=== PATIENT | female | born 1955 | race Caucasian/White ===

== ENCOUNTER 2018-09-08 15:47 | Observation (INO) | payer SELFPAY ==
[2018-09-08 16:48] LABS: Absolute Lymphocytes (CBC) 3.1 K/uL (0.7-4.9); Basophils % 0.2 % (0-1.3); Eosinophils % 4.7 % (0-4.4); Hematocrit 40.4 % (36.0-45.0); MPV 7.8 fL (7.6-11.3); Monocytes % 4.8 % (3.3-12.3); RBC Red Blood Cell Count 4.37 M/uL (3.86-4.86)
[2018-09-08 16:50] LABS: Protime INR 1.05
[2018-09-08 17:06] LABS: ALT/SGPT 23 U/L (12-78); AST/SGOT 17 U/L (15-37); Albumin 3.6 g/dL (3.4-5.0); Alkaline Phosphatase 91 U/L (45-117); BUN Blood Urea Nitrogen 12 mg/dL (7-18); Bicarbonate 32 mmol/L (21-32); Bilirubin Direct 0.1 mg/dL (0-0.2); Bilirubin Total 0.4 mg/dL (0.2-1.0); Glucose Level 98 mg/dL (74-106); Magnesium 2.1 mg/dL (1.8-2.4); NT PRO-BNP 145 pg/mL (<125); Potassium 3.6 mmol/L (3.5-5.1); Protein, Total 7.7 g/dL (6.4-8.2); Sodium Level 137 mmol/L (136-145); Troponin (Emerg Dept Use Only) < 0.02 ng/mL (0.0-0.045)
--- NOTE | 2018-09-08 17:43 | RAD REPORT ---
EXAM DESCRIPTION: Dequan Single View09/08/2018 4:48 pm CLINICAL HISTORY: Chest pain COMPARISON: 2014 FINDINGS: The lungs appear clear of acute infiltrate. The heart is normal size IMPRESSION: No acute abnormalities displayed
[2018-09-08] MEDS ORDERED: NA CHLORIDE 0.9% 1,000 ML ONE (17:56)
[2018-09-08] MEDS ORDERED: ALBUTEROL 2.5 MG/3 ML NEB SOL ONE ×2 (17:56→19:05)
[2018-09-08] MEDS ORDERED: ASPIRIN 81 MG CHEWABLE TABLET ONE (18:42)
[2018-09-08] MEDS ORDERED: ENOXAPARIN 80 MG/0.8 ML SQ ONE (18:42)
[2018-09-08] MEDS ORDERED: NICOTINE 21 MG/PAT TD ONE (18:42)
[2018-09-08 18:48] LABS: Thyroid Stimulating Hormone 9.06 uIU/mL (0.360-3.740)
--- NOTE | 2018-09-08 19:02 | EDPHYS ---
Physician Documentation [facility] Name: Helene Pastor Age: 63 yrs Sex: Female : 1955 Arrival Date: 09/08/2018 Time: 15:50 Bed 7 Private MD: ED Physician Rafael Glez HPI: 09/08 18:10 This 63 yrs old Female presents to ER via Ambulatory with complaints of Chest snw Pain. 18:10 The patient or guardian reports chest pain that is located primarily in the anterior snw chest wall, left. Onset: gradually, 2 week(s) ago, and became persistent. The pain radiates to the left shoulder. Associated signs and symptoms: Pertinent positives: shortness of breath. The chest pain is described as a heaviness. Duration: The patient or guardian reports multiple episodes. Severity of pain: At its worst the pain was moderate. The patient has experienced similar episodes in the past. The patient has not recently seen a physician. Historical: - Allergies: 15:53 No Known Allergies; hj - PMHx: 15:53 Hypertension; Hyperlipidemia; Hypothyroidism; hj - PSHx: 15:53 ; Tubal ligation; cardiac stent x1; hj - Immunization history:: Adult Immunizations. - Social history:: Smoking status: Patient uses tobacco products, smokes one pack cigarettes per day. - Ebola Screening: : Patient denies travel to an Ebola-affected area in the 21 days before illness onset. ROS: 17:15 Constitutional: Negative for fever, chills, and weight loss, Eyes: Negative for injury, snw pain, redness, and discharge, ENT: Negative for injury, pain, and discharge, Neck: Negative for injury, pain, and swelling, Abdomen/GI: Negative for abdominal pain, nausea, vomiting, diarrhea, and constipation, Back: Negative for injury and pain, : Negative for injury, bleeding, discharge, and swelling, MS/Extremity: Negative for injury and deformity, Skin: Negative for injury, rash, and discoloration, Neuro: Negative for headache, weakness, numbness, tingling, and seizure. 17:15 Cardiovascular: Positive for chest pain, orthopnea. 17:15 Respiratory: Positive for cough, orthopnea, shortness of breath. Exam: 17:15 Constitutional: This is a well developed, well nourished patient who is awake, alert, snw and in no acute distress. Head/Face: Normocephalic, atraumatic. Eyes: Pupils equal round and reactive to light, extra-ocular motions intact. Lids and lashes normal. Conjunctiva and sclera are non-icteric and not injected. Cornea within normal limits. Periorbital areas with no swelling, redness, or edema. ENT: Nares patent. No nasal discharge, no septal abnormalities noted. Tympanic membranes are normal and external auditory canals are clear. Oropharynx with no redness, swelling, or masses, exudates, or evidence of obstruction, uvula midline. Mucous membranes moist. Neck: Trachea midline, no thyromegaly or masses palpated, and no cervical lymphadenopathy. Supple, full range of motion without nuchal rigidity, or vertebral point tenderness. No Meningismus. Chest/axilla: Normal chest wall appearance and motion. Nontender with no deformity. No lesions are appreciated. Cardiovascular: Regular rate and rhythm with a normal S1 and S2. No gallops, murmurs, or rubs. Normal PMI, no JVD. No pulse deficits. Abdomen/GI: Soft, non-tender, with normal bowel sounds. No distension or tympany. No guarding or rebound. No evidence of tenderness throughout. Back: No spinal tenderness. No costovertebral tenderness. Full range of motion. Skin: Warm, dry with normal turgor. Normal color with no rashes, no lesions, and no evidence of cellulitis. MS/ Extremity: Pulses equal, no cyanosis. Neurovascular intact. Full, normal range of motion. Neuro: Awake and alert, GCS 15, oriented to person, place, time, and situation. Cranial nerves II-XII grossly intact. Motor strength 5/5 in all extremities. Sensory grossly intact. Cerebellar exam normal. Normal gait. Psych: Awake, alert, with orientation to person, place and time. Behavior, mood, and affect are within normal limits. 17:15 Respiratory: mild respiratory distress is noted, Respirations: accessory muscle usage, shallow respirations, tachypnea, Breath sounds: decreased breath sounds, + upper airway congestion. incessant wet sounding cough. Vital Signs: 15:53 BP 105 / 55; Pulse 78; Resp 18; Temp 98.3(TE); Pulse Ox 95% on R/A; Weight 69.85 kg; hj Height 5 ft. 3 in. (160.02 cm); Pain 7/10; 16:37 BP 97 / 51; Pulse 67; Resp 14; Pulse Ox 87% on R/A; sv 17:00 BP 98 / 58; Pulse 70; Resp 17; Pulse Ox 94% on 2 lpm NC; sv 18:30 BP 101 / 55; Pulse 68; Resp 22; Pulse Ox 95% on Nebulizer Mask; sv 20:09 BP 127 / 64; Pulse 65; Resp 20; Temp 98.3; Pulse Ox 95% on R/A; Pain 0/10; ak1 15:53 Body Mass Index 27.28 (69.85 kg, 160.02 cm) hj 16:37 Pt placed on O2 \T\ 2L per NC, O2 sat up to 96%. sv MDM: 16:47 Patient medically screened. snw 18:58 ECG:. The patient was given aspirin in the Emergency Department. Data reviewed: vital snw signs, nurses notes, lab test result(s), EKG, radiologic studies. Counseling: I had a detailed discussion with the patient and/or guardian regarding: the historical points, exam findings, and any diagnostic results supporting the discharge/admit diagnosis, lab results, radiology results, the need for further work-up and treatment in the hospital, smoking cessation. Physician consultation: Juliet De Jesus MD was called at 18:59, was contacted at 18:59, regarding admission, to the telemetry unit. 09/08 16:19 Order name: Basic Metabolic Panel; Complete Time: 17:13 09/08 16:19 Order name: CBC with Diff; Complete Time: 16:55 2 09/08 16:19 Order name: LFT's; Complete Time: 17:13 09/08 16:19 Order name: Magnesium; Complete Time: 17:13 2 09/08 16:19 Order name: NT PRO-BNP; Complete Time: 17:13 09/08 16:19 Order name: PT-INR; Complete Time: 16:55 09/08 16:19 Order name: Troponin (emerg Dept Use Only); Complete Time: 17:13 2 09/08 16:19 Order name: XRAY Chest (1 view); Complete Time: 18:17 2 07/10 17:15 Order name: TSH; Complete Time: 19:31 snw 09/08 18:12 Order name: CT Chest For PE Angio; Complete Time: 19:31 snw 09/08 18:31 Order name: Urine Dipstick--Ancillary (enter results); Complete Time: 09:16 ms 09/08 18:49 Order name: T4 Free; Complete Time: 19:31 EDMS 09/08 20:02 Order name: Procalcitonin; Complete Time: 09:16 EDMS 09/08 15:51 Order name: EKG; Complete Time: 15:52 ss 09/08 15:51 Order name: EKG - Nurse/Tech; Complete Time: 16:36 ss 09/08 16:19 Order name: EKG; Complete Time: 16:20 tw2 09/08 16:19 Order name: Cardiac monitoring; Complete Time: 16:19 tw2 09/08 16:19 Order name: IV Saline Lock; Complete Time: 16:36 tw2 09/08 16:19 Order name: Labs collected and sent; Complete Time: 16:36 tw2 09/08 16:19 Order name: O2 Per Protocol; Complete Time: 16:20 tw2 09/08 16:19 Order name: O2 Sat Monitoring; Complete Time: 16:20 tw2 EC:58 Rate is 79 beats/min. Rhythm is regular. QRS [place] is Normal. Clinical impression: NSR snw w/ Non-specific ST/T Changes. Administered Medications: 18:30 Drug: NS 0.9% 1000 ml Route: IV; Rate: 75 ml/hr; Site: right antecubital; tw2 21:17 Follow up: IV Status: Infusion continued upon admission ak1 18:30 Drug: Lovenox 70 mg Route: Sub-Q; Site: right lower abdomen; tw2 18:46 Follow up: Response: No adverse reaction sv 18:33 Drug: Aspirin Chewable Tablet 324 mg Route: PO; tw2 18:45 Follow up: Response: No adverse reaction sv 18:33 Drug: Nicoderm CQ 21 mg/24 hr 1 patches {Note: on back of Right arm.} Route: tw2 Transdermal; Site: affected area; 18:37 Drug: Albuterol 2.5 mg Route: Inhalation; tw2 Disposition: 09/09 07:35 Co-signature as Attending Physician, Rafael Glez MD I agree with the assessment and kdr plan of care. Disposition: 09/08/18 19:01 Hospitalization ordered by Juliet De Jesus for Observation. Preliminary diagnosis are Chest pain, unspecified, Dyspnea. - Bed requested for Telemetry/MedSurg (observation). - Status is Observation. ak1 - Condition is Stable. - Problem is new. - Symptoms have worsened. UTI on Admission? No Signatures: Dispatcher [employer] EDMS Rafael Glez MD MD [facility] Donna Sanchez, HOG RAISER-C HOG RAISER-Csnw Jazmin Cuenca, RN RN ss Lizbeth Alcaraz, RN RN ak1 Anthony Stuart, RN RN Comfort Grajeda, RN RN Betsy Nichols, RN RN 2 Wendy Mckinley RN Corrections: (The following items were deleted from the chart) 09/08 20:07 19:01 Hospitalization Ordered by Juliet De Jesus MD for Observation. Preliminary cg diagnosis is Chest pain, unspecified; Dyspnea. Bed requested for Telemetry/MedSurg (observation). Status is Observation. Condition is Stable. Problem is new. Symptoms have worsened. UTI on Admission? No. snw 21:16 20:07 09/08/2018 19:01 Hospitalization Ordered by Juliet De Jesus MD for Observation. ak1 Preliminary diagnosis is Chest pain, unspecified; Dyspnea. Bed requested for Telemetry/MedSurg (observation). Status is Observation. Condition is Stable. Problem is new. Symptoms have worsened. UTI on Admission? No. cg
--- NOTE | 2018-09-08 19:02 | ER ---
Nurse's Notes [facility] Name: Helene Pastor Age: 63 yrs Sex: Female : 1955 Arrival Date: 09/08/2018 Time: 15:50 Bed 7 Private MD: Diagnosis: Chest pain, unspecified;Dyspnea Presentation: 09/08 15:50 Presenting complaint: Patient states: franca been having chest pain and couldn't breathe hj well for 2 weeks now; denies fever; reports cough; reports taking dayquil and nyquil; reports L arm pain and shoulder area;. Transition of care: patient was not received from another setting of care. Onset of symptoms was September 08, 2018. Risk Assessment: Do you want to hurt yourself or someone else? Patient reports no desire to harm self or others. Initial Sepsis Screen: Does the patient meet any 2 criteria? No. Patient's initial sepsis screen is negative. Does the patient have a suspected source of infection? No. Patient's initial sepsis screen is negative. Care prior to arrival: None. 15:50 Method Of Arrival: Ambulatory 15:50 Acuity: PEPE 3 hj Historical: - Allergies: 15:53 No Known Allergies; hj - PMHx: 15:53 Hypertension; Hyperlipidemia; Hypothyroidism; hj - PSHx: 15:53 ; Tubal ligation; cardiac stent x1; hj - Immunization history:: Adult Immunizations. - Social history:: Smoking status: Patient uses tobacco products, smokes one pack cigarettes per day. - Ebola Screening: : Patient denies travel to an Ebola-affected area in the 21 days before illness onset. Screenin:27 Abuse screen: Denies threats or abuse. Nutritional screening: No deficits noted. tw2 Tuberculosis screening: No symptoms or risk factors identified. Fall Risk None identified. Assessment: 16:25 General: Appears in no apparent distress. Behavior is calm, cooperative, appropriate tw2 for age. Pain: Complains of pain in chest Pain does not radiate. Pain began 2 weeks ago. 16:25 Neuro: Level of Consciousness is awake, alert, obeys commands, Oriented to person, tw2 place, time, situation. Cardiovascular: Reports chest pain, Heart tones S1 S2 Patient's skin is warm and dry. Respiratory: Airway is patent Respiratory effort is even, unlabored, Respiratory pattern is regular, symmetrical, Breath sounds with wheezes bilaterally. expiratory. GI: No signs and/or symptoms were reported involving the gastrointestinal system. Abdomen is flat, Bowel sounds present X 4 quads. : No signs and/or symptoms were reported regarding the genitourinary system. EENT: No signs and/or symptoms were reported regarding the EENT system. Derm: Skin is intact, is healthy with good turgor. 17:45 Reassessment: Patient appears in no apparent distress at this time. No changes from sv previously documented assessment. Patient and/or family updated on plan of care and expected duration. Pain level reassessed. Patient is alert, oriented x 3, equal unlabored respirations, skin warm/dry/pink. 18:30 Reassessment: Patient appears in no apparent distress at this time. No changes from sv previously documented assessment. Patient and/or family updated on plan of care and expected duration. Pain level reassessed. Patient is alert, oriented x 3, equal unlabored respirations, skin warm/dry/pink. Vital Signs: 15:53 BP 105 / 55; Pulse 78; Resp 18; Temp 98.3(TE); Pulse Ox 95% on R/A; Weight 69.85 kg; hj Height 5 ft. 3 in. (160.02 cm); Pain 7/10; 16:37 BP 97 / 51; Pulse 67; Resp 14; Pulse Ox 87% on R/A; sv 17:00 BP 98 / 58; Pulse 70; Resp 17; Pulse Ox 94% on 2 lpm NC; sv 18:30 BP 101 / 55; Pulse 68; Resp 22; Pulse Ox 95% on Nebulizer Mask; sv 20:09 BP 127 / 64; Pulse 65; Resp 20; Temp 98.3; Pulse Ox 95% on R/A; Pain 0/10; ak1 15:53 Body Mass Index 27.28 (69.85 kg, 160.02 cm) hj 16:37 Pt placed on O2 \T\ 2L per NC, O2 sat up to 96%. ED Course: 15:50 Patient arrived in ED. mr 15:52 Triage completed. hj 15:53 Arm band placed on right wrist. hj 16:15 Placed in gown. Bed in low position. Call light in reach. equipment monitor phototypesetting on. Pulse ox tw2 on. NIBP on. 16:21 Wendy Mckinley RN is Primary Nurse. sv 16:25 Initial lab(s) drawn, by me, sent to lab. Inserted saline lock: 20 gauge in right sv antecubital area, using aseptic technique. Blood collected. Flushed right antecubital with 5 ml normal saline. 16:27 Patient maintains SpO2 saturation greater than 95% on room air. tw2 16:35 Donna Sanchez FNP-C [facility]. snw 16:35 Rafael Glez MD is Attending Physician. snw 16:37 Awaiting ED provider evaluation. sv 16:38 Awaiting lab results. sv 16:55 XRAY Chest (1 view) In Process Unspecified. EDMS 18:30 Urine collected: clean catch specimen, clear. dh3 18:42 CT Chest For PE Angio In Process Unspecified. EDMS 19:00 Juliet De Jesus MD is Hospitalizing Provider. snw 19:00 Report given to Lizbeth MESA. sv 19:59 No provider procedures requiring assistance completed. Patient admitted, IV remains in ak1 place. 20:58 Primary Nurse role handed off by Wendy Mckinley RN sv 21:16 Lizbeth Alcaraz, MOSHE is Primary Nurse. ak1 Administered Medications: 18:30 Drug: NS 0.9% 1000 ml Route: IV; Rate: 75 ml/hr; Site: right antecubital; tw2 21:17 Follow up: IV Status: Infusion continued upon admission ak1 18:30 Drug: Lovenox 70 mg Route: Sub-Q; Site: right lower abdomen; tw2 18:46 Follow up: Response: No adverse reaction sv 18:33 Drug: Aspirin Chewable Tablet 324 mg Route: PO; tw2 18:45 Follow up: Response: No adverse reaction sv 18:33 Drug: Nicoderm CQ 21 mg/24 hr 1 patches {Note: on back of Right arm.} Route: tw2 Transdermal; Site: affected area; 18:37 Drug: Albuterol 2.5 mg Route: Inhalation; tw2 Outcome: 19:01 Decision to Hospitalize by Provider. snw 20:09 Admitted to Tele accompanied by tech, via wheelchair, with oxygen, with chart. ak1 20:09 Condition: stable 20:09 Instructed on the need for admit. 21:16 Patient left the ED. ak1 Signatures: Dispatcher [employer] Wendy Ordaz, RN RN Donna Sanchez, CASH APPLICATIONS CLERK-C CASH APPLICATIONS CLERK-Csnw Sondra MossLizbeth, RN RN ak1 Anthony Stuart, RN MOSHE hj Betsy Nichols, MOSHE MESA tw2 Roxane Verma 3 Corrections: (The following items were deleted from the chart) 15:56 15:53 Pulse 78bpm; Resp 18bpm; Pulse Ox 95% RA; Temp 98.3F Temporal; 69.85 kg; Height 5 hj ft. 3 in.; BMI: 27.2; Pain 7/10; hj 16:26 16:25 Pain: Complains of pain in chest Pain does not radiate. Pain began tw2 tw2
--- NOTE | 2018-09-08 19:09 | RAD REPORT ---
EXAM DESCRIPTION: CT - Chest For Pe Angio - 09/08/2018 6:42 pm CLINICAL HISTORY: Chest pain COMPARISON: None. TECHNIQUE: Dynamically enhanced axial 3 mm thick images of the chest were obtained during administra tion of <100> mL Isovue 370 IV contrast. Coronal and oblique reconstruction images were generated and reviewed. Exam utilizes a protocol for optimal evaluation of pulmonary arterial tree. Maximum intensity projections 3D imaging was utilized All CT scans are performed using dose optimization technique as appropriate and may include automated exposure control or mA/KV adjustment according to patient size. FINDINGS: A pulmonary embolus is not seen. A thoracic aortic aneurysm is not noted. A pleural effusion is not seen. A pericardial effusion is not seen. A lung consolidation is not present. IMPRESSION: Negative for a pulmonary embolism.
[2018-09-08 20:23] LABS: Urine Blood TRACE (NEG); Urine Glucose NEGATIVE (NEG); Urine Protein NEGATIVE (NEG)
--- NOTE | 2018-09-08 20:30 | P.HP ---
Certification for Inpatient Patient admitted to: Observation With expected LOS: <2 Midnights Practitioner: I am a practitioner with admitting privileges, knowledge of patient current condition, hospital course, and medical plan of care. Services: Services provided to patient in accordance with Admission requirements found in Title 42 Section 412.3 of the Code of Federal Regulations Patient History Date of Service: 09/08/18 Reason for admission: chest pain History of Present Illness: Ms Pastor is a 63 years old woman with history of HTN, hypothyroidism, CAD S/P stent palcement on Cx artery on 2014, tobacco abuse, currently smoking more than 1 ppd, start with productive cough and progressive SOB. She also has been complaining of chest pain, substernal, pressure like, rediated to left arm, shoulder and jaw, improving with nitro SL. She denied fever or chills. She states that initially she had greenish secretions with her cough, and now is clear, however, still has significant cough. CTA chest, negative for PE, no obvious infiltrate. Lab work shows 11.4K WBC, normal trop I, and elevated TSH 9.06. Her BP was on the lower side 97/51, HR 67, O2 sat 95% on RA, afebrile. Allergies No Known Drug Allergies Allergy (Verified 12/07/14 11:40) Unknown Home medications list reviewed: Yes Home Medications: Carvedilol [Coreg*] 25 mg PO BID 05/20/14 Levothyroxine [Synthroid*] 88 mcg PO [id number] 05/20/14 Aspirin Enteric Coated [Ecotrin*] 325 mg PO DAILY #100 tab 05/23/14 Atorvastatin Calcium [Lipitor*] 40 mg PO BEDTIME #30 tab 05/23/14 Clopidogrel Bisulfate [Plavix*] 75 mg PO DAILY #30 tablet 05/23/14 Lisinopril [Zestril] 20 mg PO DAILY #30 05/23/14 Nitroglycerin [Nitrostat*] 0.4 mg SL UD PRN #1 tab 05/23/14 Pantoprazole [Protonix Tab*] 40 mg PO DAILYAC #30 tab 05/23/14 - Past Medical/Surgical History Diabetic: No -: HTN -: Hypothyroidism -: chest pain -: -: tubal ligation - Family History Father -: Diabetes Mother -: Lung disease, GI disease Sister -: Heart disease - Social History Smoking Status: Current every day smoker Counseled patient to stop smoking for: less than 10 minutes Smoking therapy provided: Yes Patient receptive to therapy: Yes Alcohol use: Yes CD- Drugs: No Caffeine use: Yes Place of Residence: Home Review of Systems 10-point ROS is otherwise unremarkable Physical Examination - Physical Exam General: Alert, In no apparent distress HEENT: Atraumatic, PERRLA, Mucous membr. moist/pink, EOMI, Sclerae nonicteric Neck: Supple, 2+ carotid pulse no bruit, No LAD, Without JVD or thyroid abnormality Respiratory: Clear to auscultation bilaterally, Diminished Cardiovascular: Regular rate/rhythm, Normal S1 S2 Gastrointestinal: Normal bowel sounds, No tenderness Musculoskeletal: No tenderness Integumentary: No rashes Neurological: Normal gait, Normal speech, Normal strength at 5/5 x4 extr, Normal tone, Normal affect Lymphatics: No axilla or inguinal lymphadenopathy - Studies Laboratory Data (last 24 hrs) 09/08/18 16:25: PT 12.4, INR 1.05 09/08/18 16:25: WBC 11.4 H, Hgb 13.4, Hct 40.4, Plt Count 366 09/08/18 16:25: Sodium 137, Potassium 3.6, BUN 12, Creatinine 1.28, Glucose 98, Magnesium 2.1, Total Bilirubin 0.4, AST 17, ALT 23, Alkaline Phosphatase 91 Assessment and Plan - Problems (Diagnosis) (1) Acute bronchitis Current Visit: Yes Status: Acute Qualifiers: Bronchitis organism: unspecified organism Qualified Code(s): J20.9 - Acute bronchitis, unspecified (2) CAD (coronary artery disease) Onset Date: 12/08/14 Current Visit: No Status: Acute Qualifiers: Coronary Disease-Associated Artery/Lesion type: [place] artery [place] vs. transplanted heart: [place] heart Associated angina: with unspecified angina Qualified Code(s): I25.119 - Atherosclerotic heart disease of [place] coronary artery with unspecified angina pectoris (3) Chest pain Onset Date: 12/08/14 Current Visit: No Status: Acute Qualifiers: Chest pain type: precordial pain Qualified Code(s): R07.2 - Precordial pain (4) Tobacco abuse Current Visit: No Status: Acute (5) Hypertension Current Visit: No Status: Chronic Qualifiers: Hypertension type: essential hypertension Qualified Code(s): I10 - Essential (primary) hypertension (6) Hypothyroidism Current Visit: No Status: Chronic Qualifiers: Hypothyroidism type: unspecified Qualified Code(s): E03.9 - Hypothyroidism , unspecified - Plan Will admit the patient due to chest pain, she has history of CAD with stent placed on 2014, EKG shows no acute changes, normal Trop I. Will order serial cardiac enzymes and EKG, ECHO, consult cardiology team. I think she has had a viral URI which is resolving at this time. Continue breathing treatments and O2 support. - Advance Directives Does patient have a Living Will: No Does patient have a Durable POA for Healthcare: No - Code Status/Comfort Care Code Status Assessed: Yes Code Status: Full Code
[2018-09-08] MEDS ORDERED: NITROGLYCERIN 0.4 MG/TAB SL PRN (20:57)
[2018-09-08] MEDS ORDERED: ONDANSETRON 4 MG/2 ML VIAL IV PRN (20:57)
[2018-09-08] MEDS ORDERED: ATORVASTATIN 20 MG TAB PO SCH (21:00)
[2018-09-08 21:48] VITALS: BMI 27.4
[2018-09-08] MEDS: NA CHLORIDE 0.9% 1,000 ML IV SCH (22:11)
[2018-09-09] MEDS: LEVOTHYROXINE SOD 0.088 MG TAB PO SCH (05:32)
[2018-09-09] MEDS ORDERED: KETOROLAC 30 MG/ML INJ IV PRN (05:52)
[2018-09-09 05:56] LABS: Absolute Lymphocytes (CBC) 2.8 K/uL (0.7-4.9); Basophils % 0.7 % (0-1.3); Eosinophils % 5.5 % (0-4.4); Hematocrit 37.2 % (36.0-45.0); Lymphocytes % 28.1 % (15.3-44.8); MPV 7.7 fL (7.6-11.3); Monocytes % 5.5 % (3.3-12.3); RBC Red Blood Cell Count 4.06 M/uL (3.86-4.86)
[2018-09-09 06:13] LABS: BUN Blood Urea Nitrogen 12 mg/dL (7-18); Bicarbonate 33 mmol/L (21-32); Glucose Level 106 mg/dL (74-106); HDL Cholesterol 26 mg/dL (40-60); LDL Cholesterol, Calculated 66 (<130); Potassium 3.5 mmol/L (3.5-5.1); Sodium Level 141 mmol/L (136-145); Troponin I < 0.02 ng/mL (0.0-0.045)
--- NOTE | 2018-09-09 07:37 | EKG ---
Test Date: 2018-09-08 Test Time: 16:00:29 Flap Curer: ARIAS MEASUREMENT RESULTS: Intervals: Rate: 79 HI: 164 QRSD: 72 QT: 388 QTc: 444 [place]: P: 71 HI: 164 QRS: 79 T: 82 INTERPRETIVE STATEMENTS: Normal sinus rhythm Nonspecific ST abnormality Abnormal ECG Compared to ECG 12/08/2014 05:29:25 ST (T wave) deviation now present Electronically Signed On 09-09-18 07:35:50 CDT by Luther Kang
[2018-09-09] MEDS ORDERED: KCL 20 MEQ/100 mL IVPB 20 MEQ/100 ML BAG IV SCH (08:00)
[2018-09-09] MEDS ORDERED: REGADENOSON 0.4 MG/5 ML SYR IV ONE (08:50)
[2018-09-09] MEDS: ASPIRIN EC 325 MG TABLET PO SCH (09:00)
[2018-09-09] MEDS: CLOPIDOGREL 75 MG TABLET PO SCH (09:00)
[2018-09-09] MEDS ORDERED: NA CHLORIDE 0.9% 0 ML ONE (09:13)
[2018-09-09] MEDS: ENOXAPARIN 40 MG/0.4 ML SQ SCH (09:28)
[2018-09-09] MEDS: NICOTINE 21 MG/PAT TD SCH (09:29)
[2018-09-09] MEDS: NA CHLORIDE 0.9% 1,000 ML IV SCH ×3 (10:20→20:54)
--- NOTE | 2018-09-09 11:56 | RAD REPORT ---
EXAM DESCRIPTION: NM - Rest Stress Cardiac Imaging - 09/09/2018 11:47 am CLINICAL HISTORY: CP Chest pain. COMPARISON: <Comparisons> TECHNIQUE: The patient was administered approximately 10mCi of Tc 99m Sestamibi prior to resting SPE CT imaging of the heart. The patient was then administered approximately 30 mCi of Tc 99m Sestamibi f ollowing exercise or pharmacologic stress. Multiplanar SPECT images were reviewed. FINDINGS: No stress induced ischemic defect is seen to suggest stress induced ischemia. No fixed def ect is seen to suggest hibernating myocardium or scarred myocardium. The end diastolic volume is 72 ml, the end systolic volume is 23 ml, and the ejection fraction is 69 %. IMPRESSION: No stress induced ischemia.
[2018-09-09] MEDS ORDERED: POTASSIUM CL SA 10 MEQ TAB PO ONE (12:03)
--- NOTE | 2018-09-09 13:27 | PN ---
Date of Progress Note: 09/09/2018 Subjective: The patient seen and examined. Chart reviewed and case discussed with RN. The patient still complaining of significant cough, shortness of breath. No chest pain at this time. Medications: List reviewed. Physical Examination: Vital Signs: Temperature 97.5, heart rate 67, blood pressure 132/63, respirations 18, O2 95% on 2 L via nasal cannula. General: Awake, alert, and oriented x3, in some mild respiratory distress, ill-appearing female. CV: S1 and S2. Regular rate and rhythm. Peripheral pulses present. Respiratory: Diminished breath sounds. No wheezing or stridor. Gastrointestinal: Abdomen is soft, nontender, nondistended. Positive bowel sounds. Extremities: No clubbing, cyanosis, or edema. Neurologic: Nonfocal. Laboratory Data: Sodium 141, potassium 3.5, chloride 103, CO2 33, BUN 12, creatinine 0.87, glucose 1 06, calcium 8.3. Troponin less than 0.02. Triglycerides 203, cholesterol 133, LDL 66, HDL 26. WBC 9.9, H and H 12.2 and 37.2, platelets 309, neutrophils 60%. Sputum culture pending. CT angio chest negative for PE. Assessment And Plan: A 63-year-old female with: 1.Acute bronchitis. We will continue with symptomatic treatment. The patient is still having signi ficant amount of cough, on supplemental oxygen. 2.Coronary artery disease, [place] artery and [place] heart with angina. We will continue with aspiri n, Plavix, beta neelam. 3.Chest pain. ACS has been ruled out. The patient's cardiac enzymes are negative. The patient is going for a cardiac stress test this morning. Appreciate Cardiology input. 4.Nicotine dependence with cigarette smoking, counseled, continuous. 5.Essential hypertension, stable. 6.Hypothyroidism. Plan: Obtain echocardiogram. Followup with stress test results. Continue respiratory support. The patient does not appear to have sepsis. White count has normalized. Sputum cultures are pending. No indication for antibiotics at this time, likely viral bronchitis. SA/MODL Voice ID: [id number] Report ID: [id number]
[2018-09-09] MEDS: IPRATROPIUM BROM 0.5MG/2.5ML NEB PRN ×2 (15:15→20:15)
[2018-09-09] MEDS: ALBUTEROL 2.5 MG/3 ML NEB SOL NEB PRN ×2 (15:15→20:15)
--- NOTE | 2018-09-09 15:28 | TREADPHA ---
DX: CHEST PAIN, CORONARY ARTERY DISEASE Date of Study: 09/09/18 Ht: 5 3 Wt: 155 lb 3 oz Consulting Physician: EVA MEDICATIONS: LIPITOR, PLAVIX, LOVENOX, SYNTHROID, NITROSTAT. HISTORY: 63 YEAR OLD FEMALE HERE FOR CHEST PAIN/CORONARY ARTERY DISEASE. HISTORY OF HYPERTENSION, HYPERLIPEDEMIA AND HYPOTHYROIDISM PHYSICIAL EXAMINATION: RESTING B.P.: 146/66 RESTING H.R.: 66 RESTING EKG: NORMAL PROTOCOL: LEXISCAN EXERCISE TIME: 3:30 B.P. AT [place]AK STRESS: 167/68 IMPRESSION: LEXISC[place] STRESS TEST PERFORMED. CARDIOLITE INJECTED PER PROTOCOL. NO ARRHYTHMIAS NOTED. DENIES ANY CHEST PAIN. SEE NUCLEAR MEDICINE REPORT.
--- NOTE | 2018-09-09 15:32 | ECHO ---
HEIGHT: 5 ft 3 in WEIGHT: 155 lb 3 oz DATE OF STUDY: 09/09/[address]: Juliet Bynum MD 2-DIMENSIONAL: YES M.MODE: YES DOPPLER: YES COLOR FLOW: YES TDS: NO PORTABLE: NO DEFINITY: NO BUBBLE STUDY: NO DIAGNOSIS: CORONARY ARTERY DISEASE CARDIAC HISTORY: CATHERIZATION: YES SURGERY: NO PROSTHETIC VALVE: NO PACEMAKER: NO MEASUREMENTS (cm) DIASTOLIC (NORMALS) SYSTOLIC (NORMALS) IVSd 0.9 (0.6-1.2) LA Diam 3.2 (1.9-4.0) LVEF 49% LVIDd 3.9 (3.5-5.7) LVIDs 3.0 (2.0-3.5) %FS 24% LVPWd 1.2 (0.6-1.2) Ao Diam 2.7 (2.0-3.7) 2 DIMENSIONAL ASSESSMENT: RIGHT ATRIUM: NORMAL LEFT ATRIUM: NORMAL RIGHT VENTRICLE: NORMAL LEFT VENTRICLE: NORMAL TRICUSPID VALVE: NORMAL MITRAL VALVE: NORMAL PULMONIC VALVE: NORMAL AORTIC VALVE: NORMAL PERICARDIAL EFFUSION: NONE AORTIC ROOT: NORMAL LEFT VENTRICULAR WALL MOTION: NORMAL. DOPPLER/COLOR FLOW: NORMAL. COMMENTS: NORMAL 2D ECHO WITH DOPPLER. NO WALL MOTION ABNORMALITY. NO EFFUSION. TECHNOLOGIST: CAITLIN LYON
[2018-09-09] MEDS: CARVEDILOL 25 MG TAB PO SCH (20:45)
[2018-09-09] MEDS ORDERED: ATORVASTATIN 10 MG TAB PO SCH (21:00)
[2018-09-10] MEDS: LEVOTHYROXINE SOD 0.088 MG TAB PO SCH (05:00)
[2018-09-10 06:50] LABS: BUN Blood Urea Nitrogen 7 mg/dL (7-18); Bicarbonate 28 mmol/L (21-32); Glucose Level 92 mg/dL (74-106); Magnesium 2.1 mg/dL (1.8-2.4); Potassium 3.8 mmol/L (3.5-5.1); Sodium Level 141 mmol/L (136-145)
[2018-09-10] MEDS: IPRATROPIUM BROM 0.5MG/2.5ML NEB PRN (07:34)
[2018-09-10] MEDS: ALBUTEROL 2.5 MG/3 ML NEB SOL NEB PRN (07:34)
--- NOTE | 2018-09-10 08:05 | CON ---
Date of Consultation: 09/09/[address] Floyd service on 09/08/2018 I saw the patient on 09/09/2018. Reason For Consultation: Chest pain. History Of Present Illness: Ms. Pastor is a 63-year-old woman. She has multiple medical problems, but has not followed up with a au pair for years. She had a stent of her circumflex in [address] Kang. At that time, she had moderate coronary artery disease in the RCA and distal LAD. She has not had a stress test since. She came in with shortness of breath and chest pain with and without ex ertion. Denied PND, orthopnea, pedal edema, palpitation, or syncope. Denied any nausea or vomiting or diaphoresis. By the time we saw her she already had a chest x-ray that was normal. CTA of the est was normal. EKG was normal. Troponin was normal. Medications: Her medications include aspirin, Synthroid, Lipitor, inhalers, lovastatin, and Plavix. Past Medical History: Her past medical history includes CAD, dyslipidemia, COPD, tobacco abuse, hypo thyroidism. Review of Systems: Negative. Social History: Negative. Family History: Noncontributory. Physical Examination: Vital Signs: Stable. Afebrile. HEENT: Negative. Neck: Supple with no bruit. Chest: Clear. Cardiac: Revealed a regular rhythm and rate. No murmurs, gallops, or rubs. Abdomen: Benign. Extremities: Revealed no clubbing, cyanosis, or edema. Diagnostic Data: Listed earlier. Impression And Plan: Chest pain and shortness of breath with and without exertion, certainly could b e related to coronary artery disease or chronic obstructive pulmonary disease. She was ruled out for myocardial infarction. Chest x-ray, EKG, and troponin were negative. An echocardiogram and a Vandana can are pending for today. We will see what these show prior to making final decisions. Her other p roblems including chronic obstructive pulmonary disease, dyslipidemia, hypertension, and hypothyroidi sm seems to be well controlled. DIDI/JASON Voice ID: [id number] Report ID: [id number]
[2018-09-10 08:38] VITALS: O2SAT 95
[2018-09-10] MEDS: CARVEDILOL 25 MG TAB PO SCH (09:00)
[2018-09-10] MEDS: ENOXAPARIN 40 MG/0.4 ML SQ SCH (09:00)
[2018-09-10] MEDS ORDERED: LISINOPRIL 20 MG TAB PO SCH (09:00)
[2018-09-10] MEDS ORDERED: [UNRECOGNIZED DRUG - OTHER] PO SCH (09:00)
[2018-09-10] MEDS ORDERED: HYDROCHLOROTHIAZIDE PO SCH (09:00)
[2018-09-10] MEDS ORDERED: LISINOPRIL PO SCH (09:00)
[2018-09-10] MEDS ORDERED: POTASSIUM CL SA 10 MEQ TAB PO ONE (09:00)
[2018-09-10] MEDS ORDERED: hydroCHLOROthiazide 25 MG TAB PO SCH (09:00)
[2018-09-10] MEDS: ASPIRIN EC 325 MG TABLET PO SCH (09:01)
[2018-09-10] MEDS: CLOPIDOGREL 75 MG TABLET PO SCH (09:02)
[2018-09-10] MEDS: NICOTINE 21 MG/PAT TD SCH (09:08)
[2018-09-10 10:11] VITALS: TEMP 97
[2018-09-10] MEDS ORDERED: CITALOPRAM 10 MG TABLET PO SCH (10:24)
[2018-09-10] MEDS ORDERED: CLOPIDOGREL 75 MG TABLET PO SCH (10:24)
[2018-09-10 10:57] VITALS: BP 146/69
--- NOTE | 2018-09-11 04:12 | DS ---
Date of Discharge: 09/10/2018 Consultants: Dr. Freed with Cardiology. Procedures: On 09/09/2018, cardiac stress test negative for stress-induced ischemia. Admitting Diagnoses: 1.Acute bronchitis. 2.Chest pain. 3.Coronary artery disease, [place] artery, [place] heart, with angina, status post stent. 4.Nicotine dependence with cigarette smoking. 5.Essential hypertension. 6.Hypothyroidism. Discharge Diagnoses: 1.Acute bronchitis, improving. 2.Coronary artery disease, [place] artery, [place] heart, with angina, status post stress test negativ e. 3.Chest pain, ACS ruled out, stress test negative. 4.Nicotine dependence with cigarette smoking. Counseled. 5.Essential hypertension, stable. 6.Hypothyroidism, stable. 7.Probable COPD. Hospital Course: The patient is a 63-year-old female with past medical history of hypertension, hypo thyroidism, undiagnosed COPD, who has not followed up with Cardiology since 2014, comes in with chest pain. The patient was admitted to the hospital. ACS was ruled out. The patient was seen by Cardio logy. Stress test was done, which was negative for stress-induced ischemia. Her echocardiogram show ed an EF of 49%. No wall motion abnormalities. Her chest pain resolved. The patient's breathing wa s affected due to her likely COPD. The patient has never been diagnosed before, has not had pulmonar y function testing. She was started on breathing treatments. Her O2 saturations did drop without [facility]arris pplemental oxygen. She was able to be weaned off after her wheezing improved. She is suffering from acute bronchitis at this time, which is likely viral. There were no signs of sepsis. There was no indication for antibiotics. The patient improved. She was able to ambulate without difficulty. She was counseled extensively regarding smoking cessation. The patient will need to follow up with pulm onology as an outpatient to have PFTs done and to have an official diagnosis of COPD and receive inha lers and treatments including maintenance inhalers. I recommend maintenance inhalers and rescue inha lers to her, however, she stated that she does not have insurance and cannot afford these inhalers an d refused to take them. I explained to the patient that she may be able to get samples from Pulmonol ogy. 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 Medications: As per medication reconciliation list. Followup: Follow up with PCP in 2-3 days. Follow up with Cardiology, Dr. Freed, in 2 weeks. Foll ow up with Pulmonology, Dr. Cruz and today after discharge as soon as possible, return to ER for worsening condition. Stop smoking. Activity: No strenuous activity. Diet: Heart-healthy. Physical Examination: General: Awake, alert, oriented, not in any acute distress. Appears older than stated age. CV: S1, S2. Respiratory: Moving air well bilaterally. Abdomen: Soft, nontender, nondistended. Positive bowel sounds. Extremities: No clubbing, cyanosis, or edema. Neuro: Nonfocal. SA/MODL Voice ID: [id number] Report ID: [id number]
== END 2018-09-10 10:48 | disposition home or self-care (01) ==
LOC: ER 15:47 → ERHOLD 20:01 → 2ND 20:37 → 4TH 09-09 17:19
PROVIDERS: ADMIT Internal Medicine; ATTEND Family Medicine
DX: I25.119 Atherosclerotic heart disease of native coronary artery with unspecified angina pectoris (principal); J20.9 Acute bronchitis, unspecified; I10 Essential (primary) hypertension; E03.9 Hypothyroidism, unspecified; E78.5 Hyperlipidemia, unspecified; F17.210 Nicotine dependence, cigarettes, uncomplicated; Z79.02 Long term (current) use of antithrombotics/antiplatelets; Z79.82 Long term (current) use of aspirin; Z79.899 Other long term (current) drug therapy; Z95.5 Presence of coronary angioplasty implant and graft
CPT/HCPCS: 36415; 71045; 71275; 78452; 80048; 80061; 80076; 81003; 83735; 83880; 84145; 84439; 84443; 84484; 85025; 85610; 87070; 87205; 87493; 93005; 93017; 93306; 94640; 94760; 96360; 96361; 96372; 99285; A9500; G0378; J1650; J2785; J7030; Q9967

== ENCOUNTER 2022-03-06 14:23 | Emergency (ER) | payer OTHER ==
--- OUTSIDE RECORDS SUMMARY | 2022-03-06 14:28 | XMS REPORT | Continuity of Care Document ---
:1955 Author Organization [facility] t Address [address] [place] [address] Care Team Providers Name Role Phone Boom Emery [facility], [facility] Primary Care P hysician Shon Tejada Attending Clinician Unavailable BRITTNEY GAMBOA Attending Clinician Unavailable Jeremy Jones MD Attending Clinician Angel Clark Attending Clinician Unavailable Radha White RN Attending Clinician Unavailable Only, Ang Db Test Attending Clinician Unavailable Unknown, Attending Attending Clinician Unavailable LESIA FRAZIER Attending Clinician Unavailable Susy Dixon Attending Clinician Doctor Unassigned, [place] Attending Clinician Unavailable Brittney Kumar LMSW Attending Clinician Kelly Banks MD Attending Clinician KELLY BANKS Attending Clinician Unavailable Sondra Sethi PA-C Attending Clinician GLENN ARORA Attending Clinician Unavailable Glenn Arora MD Attending Clinician Po, [facility] Attending Clinician Unavailable Lesa Srinivasan Attending Clinician Mallory, Advitya Admitting Clinician Unavailable Physician, No Primary or Family Admitting Clinician Unavaila GLENN Todd Admitting Clinician Unavailable Payers Payer Name Policy Type Policy Number Effective Date Expiration Date Dion antunez MEDICARE PART A [id number] 2020 \\T\\ B 00:00:00 Problems Condition Condition Condition Status Onset Resolution Last Treating Co mments Source Name Details Category Date Date Treatment Clinician Date Other Other Disease Active Univers general general 1-20 [place] and advice and advice 00 Mi dical for for Branch contracept contracept franca franca management management History of History of Disease Active U nivers depression depression 1-20 it y of 00:00: [place] [facility] History of History of Disease Active U nivers anxiety anxiety 1-20 ity of 00:00: [place] [facility] Essential Essential Disease Active Uni vers hypertensi hypertensi 1-20 it y of on, benign on, benign 00:[place]: [place] [facility] Hypothyroi Hypothyroi Disease Active U nivers dism dism 1-20 ity of 00:00: [place] [facility] History of History of Disease Active U nivers tubal tubal 1-20 ity of ligation ligation 00:00: [place] [facility] Over Over Disease Active Univers weight weight 1-20 ity of 00:00: [place] [facility] Lump of Lump of Disease Active Univers right right 1-20 ity of breast breast 00:00: [place] [facility] Allergies, Adverse Reactions, Alerts Allergy Allergy Status Severity Reaction(s) Onset Inactive Treating Comm ents Source Name Type Date Date Clinician No Known DA Active U [facility] 6-28 [place] s 00:00: [facility] No Known DA Active U [facility] Allergie 4-08 [place] s 00:00: [facility] No Known DA Active U [facility] Allergie 4-08 [place] 00:00: d [place] NO KNOWN Drug Active Univers ALLERGIE Class ity of S [facility] Social History Social Habit Start Date Stop Date Quantity Comments Source History of tobacco 1976-03-21 Cigarette Smoker University of use 00:00:00 [facility] Exposure to 2021-07-26 2021-08-05 Not sure [facility] SARS-CoV-2 (event) 00:00:00 08:32:00 [facility] Alcohol intake 2021-08-05 2021-08-05 0 /d University of 00:00:00 00:00:00 [facility] Cigarettes smoked 2016-03-21 2016-03-21 Univers ity of current (pack per 00:00:00 00:00:00 [facility] ) - Reported Branch Tobacco use and 2016-03-21 2016-03-21 Never used Universit y of exposure 00:00:00 00:00:00 [facility] Cigarette 2016-03-21 2016-03-21 University of pack-years 00:00:00 00:00:00 [facility] Tobacco Comment 2016-03-21 2016-03-21 wants to quit Univer sity of 00:00:00 00:00:00 but gets anxious [facility] [birth year] [facility] Smoking Status Start Date Stop Date Source Current every day smoker 2016-03-21 00:00:00 Uni versity of [facility] Medications Ordered Filled Start Stop Current Ordering Indication Dosage Frequency Signature Comments Components Source Medication Medication Date Date Medication? Clinician (SIG) Name Name aspirin 325 Yes 325mg Take 325 U nivers mg tablet 7-05 mg by ity of 15:55: mouth [place] 26 daily. Medical Branch aspirin 325 Yes 325mg Take 325 U nivers mg tablet 7-05 mg by ity of 15:55: mouth [place] 26 daily. Medical Branch aspirin 325 Yes 325mg Take 325 U nivers mg tablet 7-05 mg by ity of 15:55: mouth [place] 26 daily. Medical Branch aspirin 325 Yes 325mg Take 325 U nivers mg tablet 7-05 mg by ity of 10:55: mouth [place] 26 daily. Medical Branch aspirin 325 Yes 325mg Take 325 U nivers mg tablet 7-05 mg by ity of 10:55: mouth [place] 26 daily. Medical Branch aspirin 325 0 Yes 325mg Take 325 U nivers mg tablet 7-05 mg by ity of 10:55: mouth [place] 26 daily. Medical Branch aspirin 325 0 Yes 325mg Take 325 U nivers mg tablet 7-05 mg by ity of 10:55: mouth [place] 26 daily. Medical Branch aspirin 325 2020-0 Yes 325mg Take 325 U nivers mg tablet 7-05 mg by ity of 10:55: mouth [place] 26 daily. Medical Branch aspirin 325 0 Yes 325mg Take 325 U nivers mg tablet 7-05 mg by ity of 10:55: mouth [place] 26 daily. Medical Branch iohexol 2020-0 2020- No 100mL 100 mL, Unive rs (OMNIPAQUE 5-05 05-05 Intravenou it y of 350 21:15: 20:57 s, ONCE, 1 BULK- 00 :00 dose, Tue Medica l mL) 07/05/19 at Branch injection 1615, 100 mL Routine lisinopril 2019-0 2020- No 40mg Take 40 mg Univers 40 mg 5-05 05-05 by mouth ity of tablet 18:26: 00:00 daily. [place] 10 :00 Medical Branch CARVEDILOL 2020-0 2020- No .25mg Take 0.25 Univers ORAL 5-05 05-05 mg by ity of 18:26: 00:00 mouth 2 [place] 10 :00 (two) Medical times Branch daily. LEVOTHYROXI 2020-0 2020- No Take by Un ethan NE SODIUM 5-05 05-05 mouth. ity of (LEVOTHYROX 18:26: 00:00 [place] INE ORAL) 10 :00 Medical Branch CLOPIDOGREL 2020-0 2020- No Take by Un ethan BISULFATE 5-05 05-05 mouth. ity of (PLAVIX 18:26: 00:00 [place] ORAL) 10 :00 Medical Branch levothyroxi 2019-0 Yes TAKE 1 Univ ers ne 125 mcg 4-04 TABLET BY ity of tablet 00:00: MOUTH IN [place] 00 THE Medical MORNING ON Branch AN EMPTY STOMACH clopidogreL 2020-0 Yes 75mg Take 75 mg Univers 75 mg 4-04 by mouth ity of tablet 00:00: daily. Medical Branch pravastatin 2019-0 Yes 40mg Take 40 mg Univers 40 mg 4-04 by mouth ity of tablet 00:00: daily. Medical Branch lisinopril- 2020-0 Yes 2{tbl} Take 2 Un ethan hydrochloro 4-04 tablets by it y of thiazide 00:00: mouth [place] 20-12.5 mg 00 daily. Medical per tablet Branch citalopram 2020-0 Yes 40mg Take 40 mg U nivers 20 mg 4-04 by mouth ity of tablet 00:00: daily. [place] [facility] levothyroxi 2020-0 Yes TAKE 1 Univ ers ne 125 mcg 4-04 TABLET BY ity of tablet 00:00: MOUTH IN [place] THE Medical MORNING ON Branch AN EMPTY STOMACH clopidogreL 2020-0 Yes 75mg Take 75 mg Univers 75 mg 4-04 by mouth ity of tablet 00:00: daily. Medical Branch pravastatin 2020-0 Yes 40mg Take 40 mg Univers 40 mg 4-04 by mouth ity of tablet 00:00: daily. [place] [facility] lisinopril- 2020-0 Yes 2{tbl} Take 2 Un ethan hydrochloro 4-04 tablets by it y of thiazide 00:00: mouth [place] 20-12.5 mg 00 daily. Medical per tablet Branch citalopram 2020-0 Yes 40mg Take 40 mg U nivers 20 mg 4-04 by mouth ity of tablet 00:00: daily. [place] [facility] levothyroxi 2020-0 Yes TAKE 1 Univ ers ne 125 mcg 4-04 TABLET BY ity of tablet 00:00: MOUTH IN [place] THE Medical MORNING ON Branch AN EMPTY STOMACH clopidogreL 2020-0 Yes 75mg Take 75 mg Univers 75 mg 4-04 by mouth ity of tablet 00:00: daily. Medical Branch pravastatin 2020-0 Yes 40mg Take 40 mg Univers 40 mg 4-04 by mouth ity of tablet 00:00: daily. [place] [facility] lisinopril- 2020-0 Yes 2{tbl} Take 2 Un ethan hydrochloro 4-04 tablets by it y of thiazide 00:00: mouth [place] 20-12.5 mg 00 daily. Medical per tablet Branch citalopram 2020-0 Yes 40mg Take 40 mg U nivers 20 mg 4-04 by mouth ity of tablet 00:00: daily. [place] [facility] levothyroxi 2020-0 Yes TAKE 1 Univ ers ne 125 mcg 4-04 TABLET BY ity of tablet 00:00: MOUTH IN [place] THE Medical MORNING ON Branch AN EMPTY STOMACH clopidogreL 2020-0 Yes 75mg Take 75 mg Univers 75 mg 4-04 by mouth ity of tablet 00:00: daily. Medical Branch pravastatin 2020-0 Yes 40mg Take 40 mg Univers 40 mg 4-04 by mouth ity of tablet 00:00: daily. Medical Branch lisinopril- 2020-0 Yes 2{tbl} Take 2 Un ethan hydrochloro 4-04 tablets by it y of thiazide 00:00: mouth [place] 20-12.5 mg 00 daily. Medical per tablet Branch citalopram 2020-0 Yes 40mg Take 40 mg U nivers 20 mg 4-04 by mouth ity of tablet 00:00: daily. Medical Branch levothyroxi 2020-0 Yes TAKE 1 Univ ers ne 125 mcg 4-04 TABLET BY ity of tablet 00:00: MOUTH IN [place] THE Medical MORNING ON Branch AN EMPTY STOMACH clopidogreL 2020-0 Yes 75mg Take 75 mg Univers 75 mg 4-04 by mouth ity of tablet 00:00: daily. Medical Branch pravastatin 2020-0 Yes 40mg Take 40 mg Univers 40 mg 4-04 by mouth ity of tablet 00:00: daily. Medical Branch lisinopril- 2020-0 Yes 2{tbl} Take 2 Un ethan hydrochloro 4-04 tablets by it y of thiazide 00:00: mouth [place] 20-12.5 mg 00 daily. Medical per tablet Branch citalopram 2020-0 Yes 40mg Take 40 mg U nivers 20 mg 4-04 by mouth ity of tablet 00:00: daily. Medical Branch levothyroxi 2020-0 Yes TAKE 1 Univ ers ne 125 mcg 4-04 TABLET BY ity of tablet 00:00: MOUTH IN [place] THE Medical MORNING ON Branch AN EMPTY STOMACH clopidogreL 2020-0 Yes 75mg Take 75 mg Univers 75 mg 4-04 by mouth ity of tablet 00:00: daily. Medical Branch pravastatin 2020-0 Yes 40mg Take 40 mg Univers 40 mg 4-04 by mouth ity of tablet 00:00: daily. Medical Branch lisinopril- 2020-0 Yes 2{tbl} Take 2 Un ethan hydrochloro 4-04 tablets by it y of thiazide 00:00: mouth [place] 20-12.5 mg 00 daily. Medical per tablet Branch citalopram 2020-0 Yes 40mg Take 40 mg U nivers 20 mg 4-04 by mouth ity of tablet 00:00: daily. Medical Branch levothyroxi 2020-0 Yes TAKE 1 Univ ers ne 125 mcg 4-04 TABLET BY ity of tablet 00:00: MOUTH IN [place] THE Medical MORNING ON Branch AN EMPTY STOMACH clopidogreL 2020-0 Yes 75mg Take 75 mg Univers 75 mg 4-04 by mouth ity of tablet 00:00: daily. Medical Branch pravastatin 2020-0 Yes 40mg Take 40 mg Univers 40 mg 4-04 by mouth ity of tablet 00:00: daily. [place] [facility] lisinopril- 2020-0 Yes 2{tbl} Take 2 Un ethan hydrochloro 4-04 tablets by it y of thiazide 00:00: mouth [place] 20-12.5 mg 00 daily. Medical per tablet Branch citalopram 2020-0 Yes 40mg Take 40 mg U nivers 20 mg 4-04 by mouth ity of tablet 00:00: daily. [place] [facility] levothyroxi 2020-0 Yes TAKE 1 Univ ers ne 125 mcg 4-04 TABLET BY ity of tablet 00:00: MOUTH IN [place] THE Medical MORNING ON Branch AN EMPTY STOMACH clopidogreL 2020-0 Yes 75mg Take 75 mg Univers 75 mg 4-04 by mouth ity of tablet 00:00: daily. [place] [facility] pravastatin 2020-0 Yes 40mg Take 40 mg Univers 40 mg 4-04 by mouth ity of tablet 00:00: daily. [place] [facility] lisinopril- 2020-0 Yes 2{tbl} Take 2 Un ethan hydrochloro 4-04 tablets by it y of thiazide 00:00: mouth [place] 20-12.5 mg 00 daily. Medical per tablet Branch citalopram 2020-0 Yes 40mg Take 40 mg U nivers 20 mg 4-04 by mouth ity of tablet 00:00: daily. Medical Branch levothyroxi 2020-0 Yes TAKE 1 Univ ers ne 125 mcg 4-04 TABLET BY ity of tablet 00:00: MOUTH IN [place] THE Medical MORNING ON Branch AN EMPTY STOMACH clopidogreL 2020-0 Yes 75mg Take 75 mg Univers 75 mg 4-04 by mouth ity of tablet 00:00: daily. [place] [facility] pravastatin 2020-0 Yes 40mg Take 40 mg Univers 40 mg 4-04 by mouth ity of tablet 00:00: daily. Medical Branch lisinopril- 2020-0 Yes 2{tbl} Take 2 Un ethan hydrochloro 4-04 tablets by it y of thiazide 00:00: mouth [place] 20-12.5 mg 00 daily. Medical per tablet Branch citalopram 2020-0 Yes 40mg Take 40 mg U nivers 20 mg 4-04 by mouth ity of tablet 00:00: daily. [place] [facility] levothyroxi 2020-0 Yes TAKE 1 Univ ers ne 125 mcg 4-04 TABLET BY ity of tablet 00:00: MOUTH IN [place] THE Medical MORNING ON Branch AN EMPTY STOMACH clopidogreL 2020-0 Yes 75mg Take 75 mg Univers 75 mg 4-04 by mouth ity of tablet 00:00: daily. [place] [facility] pravastatin 2020-0 Yes 40mg Take 40 mg Univers 40 mg 4-04 by mouth ity of tablet 00:00: daily. [place] [facility] lisinopril- 2020-0 Yes 2{tbl} Take 2 Un ethan hydrochloro 4-04 tablets by it y of thiazide 00:00: mouth [place] 20-12.5 mg 00 daily. Medical per tablet Branch citalopram 2020-0 Yes 40mg Take 40 mg U nivers 20 mg 4-04 by mouth ity of tablet 00:00: daily. [place] [facility] levothyroxi 2020-0 Yes TAKE 1 Univ ers ne 125 mcg 4-04 TABLET BY ity of tablet 00:00: MOUTH IN [place] THE Medical MORNING ON Branch AN EMPTY STOMACH clopidogreL 2020-0 Yes 75mg Take 75 mg Univers 75 mg 4-04 by mouth ity of tablet 00:00: daily. [place] [facility] pravastatin 2020-0 Yes 40mg Take 40 mg Univers 40 mg 4-04 by mouth ity of tablet 00:00: daily. [place] [facility] lisinopril- 2020-0 Yes 2{tbl} Take 2 Un ethan hydrochloro 4-04 tablets by it y of thiazide 00:00: mouth [place] 20-12.5 mg 00 daily. Medical per tablet Branch citalopram 2020-0 Yes 40mg Take 40 mg U nivers 20 mg 4-04 by mouth ity of tablet 00:00: daily. [place] [facility] levothyroxi 2020-0 Yes TAKE 1 Univ ers ne 125 mcg 4-04 TABLET BY ity of tablet 00:00: MOUTH IN [place] THE Medical MORNING ON Branch AN EMPTY STOMACH clopidogreL 2020-0 Yes 75mg Take 75 mg Univers 75 mg 4-04 by mouth ity of tablet 00:00: daily. Medical Branch pravastatin 2020-0 Yes 40mg Take 40 mg Univers 40 mg 4-04 by mouth ity of tablet 00:00: daily. Medical Branch lisinopril- 2020-0 Yes 2{tbl} Take 2 Un ethan hydrochloro 4-04 tablets by it y of thiazide 00:00: mouth [place] 20-12.5 mg 00 daily. Medical per tablet Branch citalopram 2020-0 Yes 40mg Take 40 mg U nivers 20 mg 4-04 by mouth ity of tablet 00:00: daily. [place] [facility] levothyroxi 2020-0 Yes TAKE 1 Univ ers ne 125 mcg 4-04 TABLET BY ity of tablet 00:00: MOUTH IN [place] THE Medical MORNING ON Branch AN EMPTY STOMACH clopidogreL 2020-0 Yes 75mg Take 75 mg Univers 75 mg 4-04 by mouth ity of tablet 00:00: daily. [place] [facility] pravastatin 2020-0 Yes 40mg Take 40 mg Univers 40 mg 4-04 by mouth ity of tablet 00:00: daily. Medical Branch lisinopril- 2020-0 Yes 2{tbl} Take 2 Un ethan hydrochloro 4-04 tablets by it y of thiazide 00:00: mouth [place] 20-12.5 mg 00 daily. Medical per tablet Branch citalopram 2020-0 Yes 40mg Take 40 mg U nivers 20 mg 4-04 by mouth ity of tablet 00:00: daily. Medical Branch levothyroxi 2020-0 Yes TAKE 1 Univ ers ne 125 mcg 4-04 TABLET BY ity of tablet 00:00: MOUTH IN [place] THE Medical MORNING ON Branch AN EMPTY STOMACH clopidogreL 2020-0 Yes 75mg Take 75 mg Univers 75 mg 4-04 by mouth ity of tablet 00:00: daily. [place] [facility] pravastatin 2020-0 Yes 40mg Take 40 mg Univers 40 mg 4-04 by mouth ity of tablet 00:00: daily. [place] [facility] lisinopril- 2020-0 Yes 2{tbl} Take 2 Un ethan hydrochloro 4-04 tablets by it y of thiazide 00:00: mouth [place] 20-12.5 mg 00 daily. Medical per tablet Branch citalopram 2020-0 Yes 40mg Take 40 mg U nivers 20 mg 4-04 by mouth ity of tablet 00:00: daily. Medical Branch levothyroxi 2020-0 Yes TAKE 1 Univ ers ne 125 mcg 4-04 TABLET BY ity of tablet 00:00: MOUTH IN [place] THE Medical MORNING ON Branch AN EMPTY STOMACH clopidogreL 2020-0 Yes 75mg Take 75 mg Univers 75 mg 4-04 by mouth ity of tablet 00:00: daily. Medical Branch pravastatin 2020-0 Yes 40mg Take 40 mg Univers 40 mg 4-04 by mouth ity of tablet 00:00: daily. [place] [facility] lisinopril- 2020-0 Yes 2{tbl} Take 2 Un ethan hydrochloro 4-04 tablets by it y of thiazide 00:00: mouth [place] 20-12.5 mg 00 daily. Medical per tablet Branch citalopram 2020-0 Yes 40mg Take 40 mg U nivers 20 mg 4-04 by mouth ity of tablet 00:00: daily. [place] [facility] levothyroxi 2020-0 Yes TAKE 1 Univ ers ne 125 mcg 4-04 TABLET BY ity of tablet 00:00: MOUTH IN [place] THE Medical MORNING ON Branch AN EMPTY STOMACH clopidogreL 2020-0 Yes 75mg Take 75 mg Univers 75 mg 4-04 by mouth ity of tablet 00:00: daily. Medical Branch pravastatin 2020-0 Yes 40mg Take 40 mg Univers 40 mg 4-04 by mouth ity of tablet 00:00: daily. [place] [facility] lisinopril- 2020-0 Yes 2{tbl} Take 2 Un ethan hydrochloro 4-04 tablets by it y of thiazide 00:00: mouth [place] 20-12.5 mg 00 daily. Medical per tablet Branch citalopram 2020-0 Yes 40mg Take 40 mg U nivers 20 mg 4-04 by mouth ity of tablet 00:00: daily. [place] [facility] levothyroxi 2020-0 Yes TAKE 1 Univ ers ne 125 mcg 4-04 TABLET BY ity of tablet 00:00: MOUTH IN [place] THE Medical MORNING ON Branch AN EMPTY STOMACH clopidogreL 2020-0 Yes 75mg Take 75 mg Univers 75 mg 4-04 by mouth ity of tablet 00:00: daily. [place] [facility] pravastatin 2020-0 Yes 40mg Take 40 mg Univers 40 mg 4-04 by mouth ity of tablet 00:00: daily. Medical Branch lisinopril- 2020-0 Yes 2{tbl} Take 2 Un ethan hydrochloro 4-04 tablets by it y of thiazide 00:00: mouth [place] 20-12.5 mg 00 daily. Medical per tablet Branch citalopram 2020-0 Yes 40mg Take 40 mg U nivers 20 mg 4-04 by mouth ity of tablet 00:00: daily. [place] [facility] carvediloL 2020-0 Yes 25mg Take 25 mg U nivers 25 mg 4-03 by mouth 2 ity of tablet 00:00: (two) [place] 00 times Medical daily. Branch carvediloL 2020-0 Yes 25mg Take 25 mg U nivers 25 mg 4-03 by mouth 2 ity of tablet 00:00: (two) [place] 00 times Medical daily. Branch carvediloL 2020-0 Yes 25mg Take 25 mg U nivers 25 mg 4-03 by mouth 2 ity of tablet 00:00: (two) [place] 00 times Medical daily. Branch carvediloL 2020-0 Yes 25mg Take 25 mg U nivers 25 mg 4-03 by mouth 2 ity of tablet 00:00: (two) [place] 00 times Medical daily. Branch carvediloL 2020-0 Yes 25mg Take 25 mg U nivers 25 mg 4-03 by mouth 2 ity of tablet 00:00: (two) [place] 00 times Medical daily. Branch carvediloL 2020-0 Yes 25mg Take 25 mg U nivers 25 mg 4-03 by mouth 2 ity of tablet 00:00: (two) [place] 00 times Medical daily. Branch carvediloL 2020-0 Yes 25mg Take 25 mg U nivers 25 mg 4-03 by mouth 2 ity of tablet 00:00: (two) [place] 00 times Medical daily. Branch carvediloL 2020-0 Yes 25mg Take 25 mg U nivers 25 mg 4-03 by mouth 2 ity of tablet 00:00: (two) [place] 00 times Medical daily. Branch carvediloL 2020-0 Yes 25mg Take 25 mg U nivers 25 mg 4-03 by mouth 2 ity of tablet 00:00: (two) [place] 00 times Medical daily. Branch carvediloL 2020-0 Yes 25mg Take 25 mg U nivers 25 mg 4-03 by mouth 2 ity of tablet 00:00: (two) [place] 00 times Medical daily. Branch carvediloL 2020-0 Yes 25mg Take 25 mg U nivers 25 mg 4-03 by mouth 2 ity of tablet 00:00: (two) [place] 00 times Medical daily. Branch carvediloL 2020-0 Yes 25mg Take 25 mg U nivers 25 mg 4-03 by mouth 2 ity of tablet 00:00: (two) [place] 00 times Medical daily. Branch carvediloL 2020-0 Yes 25mg Take 25 mg U nivers 25 mg 4-03 by mouth 2 ity of tablet 00:00: (two) [place] 00 times Medical daily. Branch carvediloL 2020-0 Yes 25mg Take 25 mg U nivers 25 mg 4-03 by mouth 2 ity of tablet 00:00: (two) 00 times Medical daily. Branch carvediloL 2020-0 Yes 25mg Take 25 mg U nivers 25 mg 4-03 by mouth 2 ity of tablet 00:00: (two) 00 times Medical daily. Branch carvediloL 2020-0 Yes 25mg Take 25 mg U nivers 25 mg 4-03 by mouth 2 ity of tablet 00:00: (two) [place] 00 times Medical daily. Branch carvediloL 2020-0 Yes 25mg Take 25 mg U nivers 25 mg 4-03 by mouth 2 ity of tablet 00:00: (two) [place] 00 times Medical daily. Branch nitroglycer 2020-[address] 1 Uni vers in 0.4 mg 3-05 TABLET ity of sublingual 00:00: UNDER THE [place] tablet 00 TONGUE AND Medical ALLOW TO Branch DISSOLVE ONE TIME nitroglycer 2020-[address] 1 Uni vers in 0.4 mg 3-05 TABLET ity of sublingual 00:00: [place]ER THE [place] tablet 00 TONGUE AND Medical ALLOW TO Branch DISSOLVE ONE TIME nitroglycer 2020-[address] 1 Uni vers in 0.4 mg 3-05 TABLET ity of sublingual 00:00: UNDER THE [place] tablet 00 TONGUE AND Medical ALLOW TO Branch DISSOLVE ONE TIME nitroglycer 2020-[address] 1 Uni vers in 0.4 mg 3-05 TABLET ity of sublingual 00:00: UNDER THE [place] tablet 00 TONGUE AND Medical ALLOW TO Branch DISSOLVE ONE TIME nitroglycer 2020-[address] 1 Uni vers in 0.4 mg 3-05 TABLET ity of sublingual 00:00: UNDER THE [place] tablet 00 TONGUE AND Medical ALLOW TO Branch DISSOLVE ONE TIME nitroglycer 2020-[address] 1 Uni vers in 0.4 mg 3-05 TABLET ity of sublingual 00:00: UNDER THE [place] tablet 00 TONGUE AND Medical ALLOW TO Branch DISSOLVE ONE TIME nitroglycer 2020-[address] 1 Uni vers in 0.4 mg 3-05 TABLET ity of sublingual 00:00: UNDER THE [place] tablet 00 TONGUE AND Medical ALLOW TO Branch DISSOLVE ONE TIME nitroglycer 2020-[address] 1 Uni vers in 0.4 mg 3-05 TABLET ity of sublingual 00:00: UNDER THE [place] tablet 00 TONGUE AND Medical ALLOW TO Branch DISSOLVE ONE TIME nitroglycer 2020-[address] 1 Uni vers in 0.4 mg 3-05 TABLET ity of sublingual 00:00: UNDER THE [place] tablet 00 TONGUE AND Medical ALLOW TO Branch DISSOLVE ONE TIME nitroglycer 2020-[address] 1 Uni vers in 0.4 mg 3-05 TABLET ity of sublingual 00:00: UNDER THE [place] tablet 00 TONGUE AND Medical ALLOW TO Branch DISSOLVE ONE TIME nitroglycer 2020-[address] 1 Uni vers in 0.4 mg 3-05 TABLET ity of sublingual 00:00: UNDER THE [place] tablet 00 TONGUE AND Medical ALLOW TO Branch DISSOLVE ONE TIME nitroglycer 2020-[address] 1 Uni vers in 0.4 mg 3-05 TABLET ity of sublingual 00:00: UNDER THE [place] tablet 00 TONGUE AND Medical ALLOW TO Branch DISSOLVE ONE TIME nitroglycer 2020-[address] 1 Uni vers in 0.4 mg 3-05 TABLET ity of sublingual 00:00: UNDER THE [place] tablet 00 TONGUE AND Medical ALLOW TO Branch DISSOLVE ONE TIME nitroglycer 2020-[address] 1 Uni vers in 0.4 mg 3-05 TABLET ity of sublingual 00:00: UNDER THE [place] tablet 00 TONGUE AND Medical ALLOW TO Branch DISSOLVE ONE TIME nitroglycer 2020-[address] 1 Uni vers in 0.4 mg 3-05 TABLET ity of sublingual 00:00: UNDER THE [place] tablet 00 TONGUE AND Medical ALLOW TO Branch DISSOLVE ONE TIME nitroglycer 2019-[address] 1 Uni vers in 0.4 mg 3-05 TABLET ity of sublingual 00:00: UNDER THE [place] tablet 00 TONGUE AND Medical ALLOW TO Branch DISSOLVE ONE TIME nitroglycer 2019-[address] 1 Uni vers in 0.4 mg 3-05 TABLET ity of sublingual 00:00: UNDER THE [place] tablet 00 TONGUE AND Medical ALLOW TO Branch DISSOLVE ONE TIME aspirin 325 2016- Yes 325mg Take 325 U nivers mg tablet 1-20 mg by ity of 22:19: mouth [place] 25 daily. Medical Branch aspirin 325 Yes 325mg Take 325 U nivers mg tablet 1-20 mg by ity of 22:19: mouth [place] 25 daily. Medical Branch aspirin 325 2016- Yes 325mg Take 325 U nivers mg tablet 1-20 mg by ity of 22:19: mouth [place] 25 daily. Medical Branch aspirin 325 2016- Yes 325mg Take 325 U nivers mg tablet 1-20 mg by ity of 22:19: mouth [place] 25 daily. Medical Branch aspirin 325 2016- Yes 325mg Take 325 U nivers mg tablet 1-20 mg by ity of 22:19: mouth [place] 25 daily. Medical Branch aspirin 325 2016- Yes 325mg Take 325 U nivers mg tablet 1-20 mg by ity of 22:19: mouth [place] 25 daily. Medical Branch aspirin 325 2016- Yes 325mg Take 325 U nivers mg tablet 1-20 mg by ity of 22:19: mouth [place] 25 daily. Medical Branch aspirin 325 2016- Yes 325mg Take 325 U nivers mg tablet 1-20 mg by ity of 22:19: mouth [place] 25 daily. [facility] Branch Vital Signs Vital Name Observation Time Observation Value Comments Source Systolic blood 2020-09-03 15:56:00 167 mm[Hg] Univer sity of pressure [facility] Diastolic blood 2020-09-03 15:56:00 80 [facility] 15:54:00 64 /min [facility] Respiratory rate 2020-09-03 15:54:00 16 [facility] height 2020-09-03 15:54:00 160 cm [facility] [place] [facility] Body weight 2020-09-03 15:54:00 72.122 kg [facility] [place] [facility] BMI 2020-09-03 15:54:00 28.17 kg/m2 [facility] Oxygen saturation in 2020-09-03 15:54:00 95 /min [facility] Systolic blood 2019-07-05 21:32:38 174 mm[Hg] [facility] Diastolic blood 2019-07-05 21:32:38 72 mm[Hg] [facility] Heart rate 2019-07-05 21:32:38 67 /min [facility] Respiratory rate 2019-07-05 21:32:38 18 /min [facility] Oxygen saturation in 2019-07-05 21:32:38 93 /min [facility] of Arterial blood by [facility] yadira Pulse oximetry Branch Body temperature 2019-07-05 19:02:00 36.78 [place] [facility] Body weight 2019-07-05 19:02:00 74.844 kg [facility] BMI 2019-07-05 19:02:00 29.23 kg/m2 [facility] Systolic blood 2019-07-05 21:32:38 174 mm[Hg] [facility] Diastolic blood 2019-07-05 21:32:38 72 mm[Hg] [facility] Heart rate 2019-07-05 21:32:38 67 /min [facility] Respiratory rate 2019-07-05 21:32:38 18 /min [facility] Oxygen saturation in 2019-07-05 21:32:38 93 /min [facility] Arterial blood by [facility] yadira Pulse oximetry Branch Body temperature 2019-07-05 19:02:00 36.78 [place] [facility] Body weight 2019-07-05 19:02:00 74.844 kg [facility] BMI 2019-07-05 19:02:00 29.23 kg/m2 [facility] Systolic blood 2019-07-05 18:14:00 131 mm[Hg] [facility] Diastolic blood 2019-07-05 18:14:00 82 mm[Hg] [facility] Heart rate 2019-07-05 18:14:00 79 /min [facility] Body temperature 2019-07-05 18:14:00 37.22 [place] Univ ers[facility] Respiratory rate 2019-07-05 18:14:00 18 /min [facility] Body height 2019-07-05 18:14:00 160 cm [facility] Body weight 2019-07-05 18:14:00 68.947 kg [facility] BMI 2019-07-05 18:14:00 26.93 kg/m2 [facility] Oxygen saturation in 2019-07-05 18:14:00 98 /min [facility] of Arterial blood by [facility] Pulse oximetry Branch Systolic blood 2019-07-05 18:14:00 131 mm[Hg] [facility] Diastolic blood 2019-07-05 18:14:00 82 mm[Hg] Unive rsity of pressure [facility] Heart rate 2019-07-05 18:14:00 79 /min [facility] Body temperature 2019-07-05 18:14:00 37.22 [place] Univ ers[facility] Respiratory rate 2019-07-05 18:14:00 18 /min Univ ersity of [facility] Body height 2019-07-05 18:14:00 160 cm [facility] Body weight 2019-07-05 18:14:00 68.947 kg [facility] BMI 2019-07-05 18:14:00 26.93 kg/m2 [facility] Oxygen saturation in 2019-07-05 18:14:00 98 /min [facility] Arterial blood by [facility] Pulse oximetry Branch Procedures Procedure Date / Time Performing Clinician Source Performed CONSENT/REFUSAL FOR 2020-09-03 15:40:49 Doctor Unassigned, No [facility] DIAGNOSIS AND TREATMENT Name Medical Branch ASSIGNMENT OF BENEFITS 2020-09-03 15:40:33 Doctor Unassigned, No [facility] Name Medical Branch REFERRAL- 2020-07-03 05:01:00 Doctor Unassigned, No [facility] REQUEST/RESPONSE Name [facility] CT ANGIOGRAM HEAD 2019-07-05 21:07:17 Glenn Arora [facility] CT ANGIOGRAM NECK 2019-07-05 21:07:17 Glenn Arora [facility] CT HEAD WO CONTRAST 2019-07-05 20:55:54 Glenn Arora [facility] ADC / LCC - DRUG SCREEN 2019-07-05 19:32:00 Glenn Arora [facility] TRIAGE [facility] URINALYSIS 2019-07-05 19:31:00 Glenn Arora [facility] CBC WITH DIFFERENTIAL 2019-07-05 19:29:00 Glenn Arora [facility] PROTHROMBIN TIME / INR 2019-07-05 19:29:00 Glenn Arora [facility] ACTIVATED PARTIAL 2019-07-05 19:29:00 [facility] THRMPL[facility] SOFIA [facility] N-TERMINAL PRO-BNP 2019-07-05 19:29:00 Glenn Arora [facility] FREE T3 2019-07-05 19:29:00 Ulysses Glenn [facility] TROPONIN I 2019-07-05 19:29:00 Ulysses [facility] FREE T4 2019-07-05 19:29:00 Ulysses [facility] THYROID STIMULATING 2019-07-05 19:29:00 Glenn Arora [facility] HORMONE [facility] HEPATIC FUNCTION PANEL 2019-07-05 19:29:00 Glenn Arora [facility] ([id number]) (ALB,T.PRO,BILI [facility] Branch T,BU/BC,ALT,AST,ALK PHOS) BASIC METABOLIC PANEL 2019-07-05 19:29:00 Glenn Arora [facility] (NA, K, CL, CO2, Medical Branch GLUCOSE, BUN, CREATININE, CA) ETHANOL 2019-07-05 19:29:00 Glenn Arora [facility] EKG-12 LEAD 2019-07-05 19:08:49 Glenn Arora [facility] Encounters Start End Encounter Admission Attending Care Care Encounter Source Date/Time Date/Time Type Type Clinicians Facility Department ID 2020-06-06 Inpatient [facility], HCAMN HCAMN [id number] [facility] 15:07:03 Advitya 70 [facility] 2021-08-30 2021-08-30 Outpatient Adriana GAMBOA [facility] [id number] Univers 12:00:00 12:00:[address] [facility] 2021-08-29 2021-08-29 Telephone Jeremy Jones [facility] [id number] Univers 00:00:00 00:00:00 [facility] [id number] [place] [phone] [address] OFFICE BUILDING 2021-08-28 2021-08-28 Telephone Jeremy Jones [facility] 1..840.114 [id number] Univers 00:00:00 00:00:00 [facility] [id number] [place] [phone] [address] OFFICE BUILDING 2021-08-27 2021-08-27 Emergency EM Crismon, HCACR H[facility]CR [id number] [facility] 11:22:00 18:43:00 Christopher [id number] [facility] 2021-08-27 2021-08-27 Emergency EM Crismon, HCACR [facility] [id number] [facility] 11:22:00 18:43:00 Christopher 16 Co [facility] 2021-08-05 2021-08-05 Telemedici Jeremy Jones [facility] 1.2.840.114 [id number] Univers 11:30:00 11:45:00 ne Visit [facility] [id number] [place] [phone] [address] OFFICE BUILDING 2021-08-05 2021-08-05 Outpatient R JEREMY JONES [facility] [id number] Univers [facility]:30[facility] 2021-07-09 2021-07-09 Telephone Jeremy Jones [facility] 1.2.840.114 [id number] Univers 00:00:00 00:00:00 [facility] 350.1.13.10 [place] [id number] [address] OFFICE BUILDING 2021-03-06 2021-03-06 Letter GREG White 1.2.840.114 [id number] Univers 00:00:00 00:00:00 (Out) Radha JAIME 350.1.13.10 it y of HOSPITAL 4.2.7.2.686 Jimmy as [phone] [address] 2021-03-05 2021-03-05 Laboratory Only, Ang Db Test [facility] 1.2.8 40.114 [id number] Univers 10:00:00 10:15:00 Only Unknown, Attending HEALTH 350.1.13.10 ity of [place] 4.2.7.2.686 Jimmy as SHADI?BLEA [phone] [address] MEDICAL OFFICE BUILDING 2021-03-05 2021-03-05 Outpatient R FREDDIE [facility] [id number] Univers 10:00:00 10:11:[address] [facility] 2020-09-28 2020-09-28 Outpatient R BEE [facility] [id number] Univers 08:00:00 08:00:[address] [facility] 2020-09-27 2020-09-27 [facility] 1.2.840.114 [id number] Univers 00:00:00 00:00:00 [facility] [id number] [place] [phone] [address] Office Building 2020-09-03 2020-09-03 Office Jeremy Jones KYSAMAN 1.2.840.114 [id number] Univers 10:41:27 11:11:27 Visit [facility] 350.1.13.10 [place] [phone] [address] Office Building 2020-09-03 2020-09-03 Outpatient R JEREMY JONES [facility] [id number] Univers 10:45:00 10:45:00 ity of [facility] 2020-09-03 2020-09-03 Orders Doctor GREG 1.2.840.114 [id number] Univers 00:00:00 00:00:00 Only Unassigned, ADDISON 350.1.13.10 ity of [place] [facility] 4.2.7.2.686 Jimmy as [phone] [address] 2020-07-03 2020-07-03 Orders Doctor GREG 1.2.840.114 [id number] Univers 00:00:00 00:00:00 Only Unassigned, ADDISON 350.1.13.10 ity of [place] [facility] 4.2.7.2.686 Jimmy as [phone] [address] 2019-07-13 2019-07-13 Patient Stacy [facility] 1.2.840.114 [id number] 00:00:00 00:00:00 Outreach Brittney [facility] 350.1.13.10 [place] 4.2.7.2.686 [place] [phone] [place] [address] Office [facility] 2019-07-13 2019-07-13 Patient Stacy [facility] 1.2.840.114 [id number] Univers 00:00:00 00:00:00 Outreach Brittney [facility] 350.1.13.10 [place] [phone] [address] Office [facility] 2019-07-12 2019-07-12 [place] KYSAMAN 1.2.840.114 [id number] 08:02:20 15:54:40 ne Visit [facility] Health 350.1.13.10 [place] 4.2.7.2.686 [place] [phone] [place] [address] Office [facility] 2019-07-12 2019-07-12 Telemdaisy [place] KYSAMAN 1.2.840.114 [id number] Univers 08:02:20 15:54:40 ne Visit [facility] [place] 350.1.13.10 [place] [phone] [address] Office [facility] 2019-07-12 2019-07-12 [id number] [facility] 14:00:00 14:00:00 KELLY rivera [facility] 2019-07-08 2019-07-08 Telephone MEDARDO Sethi 1.2.840.114 [id number] [facility] 00:00:00 00:00:00 Sondra R Y HEALTH 350.1.13.10 i ty [place] [phone] [address] 2019-07-08 2019-07-08 Telephone Navdeep [facility] 1.2.840.114 [id number] 00:00:00 00:00:00 Sondra R Y HEALTH 350.1.13.10 CLINICS 4.2.7.2.686 [phone] [facility] 2019-07-06 2019-07-06 [facility] [id number] [id number] [facility] 00:00:00 00:00:00 Sondra R Health 350.1.13.10 [place] [phone] [address] Office [facility] 2019-07-06 2019-07-06 [facility] 1.2.509.332 [id number] 00:00:00 00:00:00 Sondra R Health 350.1.13.10 [place] 4.2.7.2.686 [place] [phone] [place] [address] Office [facility] 2019-07-05 2019-07-05 Emergency X ARORA, [facility] [id number] Univers 14:06:20 17:15:00 GLENN larajohn [facility] 2019-07-05 2019-07-05 Emergency [facility] [id number] [id number] Univers 14:06:20 17:15:00 Glenn Lemon 350.1.13.10 i ty [place] [phone] [address] 2019-07-05 2019-07-05 Emergency [facility] 1.2.340.416 [id number] 14:06:20 17:15:00 Glenn Lemon 350.1.13.10 [place] 4.2.7.2.686 [place] [id number] [facility] 2019-07-05 2019-07-05 Urgent Pob1, Acute Care [facility] 1. 2.840.114 [id number] Univers 13:05:12 14:04:05 Lesa Sheldon [facility] 350.1.13.10 ity of [place] 4.2.7.2.686 Jimmy as Professio [phone] Me dical [address] Office Building One 2019-07-05 2019-07-05 Urgent Pob1, Acute [facility] 1.2.840.114 [id number] 13:05:12 14:04:05 [facility] 350.1.13.10 [place] 4.2.7.2.686 Professio [id number] nal [facility] Office Building One 2019-07-05 2019-07-05 Outpatient R [facility] [id number] Univers 13:00:00 13:00:00 [facility] Results Test Description Test Time Test Comments Results Result Comments Source COVID 19 INHOUSE AG 2021-08-27 14:12:00 Test Item Value Reference Range Interpretation Comme nts COVID 19 INHOUSE AG (test code = Positive Neg A ON 08/27/21 AT 1409, a.[id number].[id number]) CALLED TO GENI HENDRICKSON RN.The report was confirmed b y read back protocols Y,N: YES. DRUGS OF ABUSE SCREEN [id number] 14:05:00 Test Item Value Reference Interpretation Comments Range URN COCAINE (test NONE DETECTED See_Comment [Automat ed message] The code = COCAURN) (NEG) system which generated SCcutoff this result tra nsmitted reference range : <300 NG/ML. The refe rence range was not u sed to interpret this result as normal/abnormal . URN CANNABINOIDS NONE DETECTED See_Comment [Automate d message] The (test code = (NEG) system which ge nerated CANNABURN) SCcutoff this result tra nsmitted reference range : <50 NG/ML. The refe rence range was not u sed to interpret this result as normal/abnormal . URN AMPHETAMINE NONE DETECTED See_Comment [Automated message] The (test code = (NEG) system which ge nerated AMPHETURN) SCcutoff this result tra nsmitted reference range : <1000 NG/ML. The refe rence range was not u sed to interpret this result as normal/abnormal . URN BARBITURATE NONE DETECTED See_Comment [Automated message] The (test code = (NEG) system which ge nerated BARBITURN) SCcutoff this result tra nsmitted reference range : <200 NG/ML. The refe rence range was not u sed to interpret this result as normal/abnormal . URN BENZODIAZEPINE NONE DETECTED See_Comment [Automa kane message] The (test code = (NEG) system which ge nerated BENZOURN) SCcutoff this result tra nsmitted reference range : <200 NG/ML. The refe rence range was not u sed to interpret this result as normal/abnormal . URN OPIATES (test NONE DETECTED See_Comment [Automat ed message] The code = OPIATURN) (NEG) system whic h generated SCcutoff this result tra nsmitted reference range : <300 NG/ML. The refe rence range was not u sed to interpret this result as normal/abnormal . URN PHENCYCLIDINE NONE DETECTED See_Comment ------ Fo r all drug (PCP) (test code = (NEG) screen an alytes PHENCURN) SCcutoff ------The scree n method provides only a preliminary analyticaltest result. A more specific a lternate chemical method mustbe used in order t o obtain a confirmed jacobo lytical result.Gas chromatography/ mass spectrometry (G C/MS) is thepreferred confirmatory me thod. Other chemical confirmationmet hods are available. Clin ical consideration andprofessional judgement arpitaul d be applied to any drug ofabuse test re sult, particularly wh en preliminary positiveresults are used. [Automate d message] The sy stem which generated this result transmit kane reference range : <25 NG/ML. The refe rence range was not u sed to interpret this result as normal/abnormal . - CT ANGIO [id number] 14:00:00 [facility]: RINA RICO : 1955 Sex: F Patient Name: RINA RICO Unit No: [id number] EXAMS: CPT CODE: [id number] CT ANGIO HEAD 51647 EXAM: CT angiogram head with contrast. CT angiogram neck with contrast. INDICATION: h/o aneurysm, AMS T18 TECHNIQUE: Axial CT images were obtained from the aortic arch to the vertex after intravenous contrast utilizing CTA protocol. Maximum intensity projection images were created from the data set. One or more of the following dose reduction techniques were used: Automated exposure control, adjustment of the mA and/or kV according to patient size, and/or iterative reconstruction. FINDINGS: For the purpose of this dictation, hemodynamically significant stenosis is characterized as greater than 50%. Degree of stenosis of the internal carotid arteries as per the NASCET criteria. CTA head: Internal carotid arteries: Right: Aneurysm seen arising from its supraclinoid portion measuring 3.9 x 3.5 x 2.3 mm in size. Left: No hemodynamically significant narrowing, or aneurysm seen. Middle cerebral arteries: Right: No hemodynamically significant narrowing, or aneurysm seen. Left: No hemodynamically significant narrowing, or aneurysm seen. Anterior cerebral arteries: Right: No hemodynamically significant narrowing, oraneurysm seen. Left: No hemodynamically significant narrowing, or aneurysm seen. Posterior cerebral arteries: Right: No hemodynamically significant narrowing, or aneurysm seen. Left: No hemodynamicallysignificant narrowing, or aneurysm seen. Vertebral arteries: Right: No hemodynamically significant narrowing, or aneurysm seen. Left: No hemodynamically significant narrowing, or aneurysm seen. Basilar artery: No hemodynamically significant narrowing, or aneurysm seen. CT head : No gross CT evidence of acute territorial infarct or intracranial hemorrhage is appreciated. No mass effect, midline shift or hydrocephalus seen. Please refer to the previous unenhanced CT head report for additional details.CTA neck: Aortic arch: Mild atherosclerosis Brachiocephalic artery: No hemodynamically significant narrowing, or aneurysm seen. Subclavian arteries: Right: No hemodynamically significant narrowing, or aneurysm seen. Left: No hemodynamically significant narrowing, or aneurysm seen. MILAD Hicks NAME: RINA RUIZ [address] [place] [address] PHYS: [facility]ITAL[facility] Angel [place], [place] [address] : 1955 AGE: 66 SEX: F LOC: TUNG PHONE #: [phone] EXAM DATE: 08/27/2021 STATUS: REG ER FAX #: [phone] RAD #: D/C DT PAGE 1 Signed Report (CONTINUED) Patient Name: RINA RICO Unit No: [id number] EXAMS: CPT CODE: [id number] CT ANGIO HEAD 68506 <Continued> Commoncarotid arteries: Right: No hemodynamically significant narrowing, or aneurysm seen. Left: No hemodynamically significant narrowing, or aneurysm seen. Internal carotid arteries: Right: No hemodynamically significant narrowing, or aneurysm seen. Left: No hemodynamically significant narrowing, or aneurysm seen. Vertebral arteries: Right: No hemodynamically significant narrowing, or aneurysm seen. Left:No hemodynamically significant narrowing, or aneurysm seen. CT neck: No gross abnormality appreciated. Visualized chest: No significant abnormality appreciated within the visualized chest. Osseous structures: No acute or destructive osseous process is seen. IMPRESSION: Aneurysm seen arising from the supraclinoid portion of the right ICA measuring 3.9 x 3.5 x 2.3 mm in size. No evidence of hemodynamically significant narrowing noted involving the major arteries of the anterior and posterior circulation. at 1400 Reported and signed by: Harvinder Marcelino MD CC: Angel Clark MD Dictated Date/Time: 08/27/2021 (1399) Technologist: JOHNNIE GALLEGO CTDI: 34.74 DLP: 1252.63 Trnscrpt: 08/27/2021 (1399) Luis.AH26 MILAD Hicks NAME: RINA RICO [address] [place] [address] PHYS: DAMIENAnupama Angel [place], [place] [address] : 1955 AGE: 66 SEX: F LOC: B.ERS PHONE #: [phone] EXAM DATE: 08/27/2021 STATUS: REG ERFAX #: [phone] RAD #: D/C DT PAGE 2 Signed Report Patient Name: RINA RICO Unit No: [id number] EXAMS: CPT CODE: [id number] CT ANGIO HEAD 34045 <Continued> Orig Print D/T: S: 08/27/2021 (1403) [facility] [place] NAME: RINA RICO [address] [place] [address] PHYS: SAYRA - Angel Clark [place], [place] [address] : 1955 AGE: 66 SEX: F LOC: AnyiERS PHONE #: [phone] EXAM DATE: 08/27/2021 STATUS: REG ER FAX #: [phone] RAD #: D/C DT PAGE 3 Signed Report- CT ANGIO [id number] 14:00:00[facility] AUGU[facility]EN[facility]: RINA RICO : 1955 Sex: F Patient Name: RINA RICO Unit No: [id number] EXAMS: CPT CODE: [id number] CT ANGIO NECK 31856 EXAM: CT angiogram head with contrast. CT angiogram neck with contrast. INDICATION: h/o aneurysm, AMS T18 TECHNIQUE: Axial CT images were obtained from the aortic arch to the vertex after intravenous contrast utilizing CTA protocol. Maximum intensity projection images were created from the data set. One or more ofthe following dose reduction techniques were used: Automated exposure control, adjustment of the mA and/or kV according to patient size, and/or iterative reconstruction. FINDINGS: For the purpose of this dictation, hemodynamically significant stenosis is characterized as greater than 50%. Degree of stenosis of the internal carotid arteries as per the NASCET criteria. CTA head: Internal carotid arteries: Right: Aneurysm seen arising from its supraclinoid portion measuring 3.9 x 3.5 x 2.3 mm in size. Left: No hemodynamically significant narrowing, or aneurysm seen. Middle cerebral arteries: Right: Nohemodynamically significant narrowing, or aneurysm seen. Left: No hemodynamically significant narrowing, or aneurysm seen. Anterior cerebral arteries: Right: No hemodynamically significant narrowing, or aneurysm seen. Left: No hemodynamically significant narrowing, or aneurysm seen. Posterior cerebral arteries: Right: No hemodynamically significant narrowing, or aneurysm seen. Left: No hemodynamically significant narrowing, or aneurysm seen. Vertebral arteries: Right: No hemodynamically significant narrowing, or aneurysm seen. Left: No hemodynamically significant narrowing, or aneurysm seen. Basilar artery: No hemodynamically significant narrowing, or aneurysm seen. CT head : No gross CT evidenceof acute territorial infarct or intracranial hemorrhage is appreciated. No mass effect, midline shift or hydrocephalus seen. Please refer to the previous unenhanced CT head report for additional details. CTA neck: Aortic arch: Mild atherosclerosis Brachiocephalic artery: No hemodynamically significantnarrowing, or aneurysm seen. Subclavian arteries: Right: No hemodynamically significant narrowing, or aneurysm seen. Left: No hemodynamically significant narrowing, or aneurysm seen. [facility] [place] NAME: RINA MCLAUGHLIN [address] [place] [address] PHYS: SAYRA Angel [place], [place] [address] : 1955 AGE: 66 SEX: F LOC: TUNG PHONE #: [phone] EXAM DATE: 08/27/2021TATUS: REG ER FAX #: [phone] RAD #: D/C DT PAGE 1 Signed Report (CONTINUED) Patient Name: RINA RICO Unit No: [id number] EXAMS: CPT CODE: [id number] CT ANGIO NECK 04213 <Continued> Common carotid arteries: Right: No hemodynamically significant narrowing, or aneurysm seen. Left: No hemodynamically significant narrowing, or aneurysm seen. Internal carotid arteries: Right: No hemodynamically significant narrowing, or aneurysm seen. Left: No hemodynamically significant narrowing, or aneurysm seen. Vertebral arteries: Right: No hemodynamically significant narrowing, or aneurysm seen. Left: No hemodynamically significant narrowing, or aneurysm seen. CT neck: No gross abnormality appreciated. Visualized chest: No significant abnormality appreciated within the visualized chest. Osseous str uctures: No acute or destructive osseous process is seen. IMPRESSION: Aneurysm seen arising from the supraclinoid portion of the right ICA measuring 3.9 x 3.5 x 2.3 mm in size. No evidence of hemodynamically significant narrowing noted involving the major arteries of the anterior and posterior circulation. at 1400 Reported and signed by: Harvinder Marcelino MD CC: Angel Clark MD Dictated Date/Time: 08/27/2021 (1399) Technologist: JOHNNIE GALLEGO CTDI: 34.74 DLP: 1252.63 Trnscrpt: 08/27/2021 (1400) [email or web address].[email or web address] TONYNegro Kurt NAME: RINA RICO [address] [place] [address] PHYS: CRICH. [place], [place] [address] : 1955 AGE: 66 SEX: F LOC: AnyiBitGo PHONE #: [phone] EXAM DATE: 08/27/2021 STATUS: REG ER FAX #: [phone] RAD #: D/C DT PAGE 2 Signed Report Patient Name: RINA RICO Unit No: [id number] EXAMS: CPT CODE: [id number] CT ANGIO NECK 51698 <Continued> Orig Print D/T: S: 08/27/2021(1403) [place] NAME: RINA RICO [address] [place] [address] [facility]: [facility] [place], [place] [address] : 1955 AGE: 66 SEX: F LOC: B.ERS PHONE #: [phone] EXAM DATE: 08/27/2021 STATUS: REG ER FAX #: [phone] RAD #: D/C DT PAGE 3 Signed Report- CT HEAD/BRAIN W/O [id number] 13:00:00 [facility] : 1955 Sex: F Patient Name: RINA RICO Unit No: [id number] EXAMS: CPT CODE: [id number] CT HEAD/BRAIN W/O CONT 48206 EXAMINATION: - CT HEAD/BRAIN W/O CONT COMPARISON: None HISTORY: Altered mental status, possible ingestion LOCATION CODE: C3 TECHNIQUE: CT of the Brain without contrast. Axial non contrast images of the brainwere obtained from the skull base to the vertex which were reviewed in bone and soft tissue algorithms. Coronal and sagittal reformatted images were also submitted for review All CT scans are performedusing dose optimization techniques as appropriate to a performed exam including one or more of the following: ?Automated exposure control ?Adjustment of the mA and/or kV according to patient size ?Use of iterative reconstruction technique FINDINGS: There are no acute intracranial abnormalities. Specifically, there is no evidence of hemorrhage, hydrocephalus, midline shift, extra-axial collection or space-occupying lesion. Mild periventricular white matter changes are seen in the cervical hemispheres and are likely related to chronic small vessel disease. The ventricles and sulci are appropriate in size and configuration for the age of the patient. The posterior fossa structures are normal in appearance. The bony calvarium is intact. Orbits and globes are unremarkable. No significant paranasal sinus mucosal disease is identified. Atheromatous plaquing is seen in the distal internal carotid arteries bilaterally IMPRESSION: No acute intracranial abnormality Chronic white matter changes at 1300 Reported and signed by: Galilea Coates MD CC: Angel Clark MD Dictated Date/Time: 08/27/2021 (1300) Technologist: SHENG HUYNH; JOHNNIE GALLEGO CTDI: 42.37 DLP: 739.29 Trnscrpt: 08/27/2021 (1300) [email or web address] MILAD Hicks NAME: RINA RICO [address] [place] [address] PHYS: [place] [address] : 1955 AGE: 66 SEX: F LOC: B.ERS PHONE #: [phone] EXAM DATE: 08/27/2021 STATUS: PRE ER FAX #: [phone] RAD #: D/C DT PAGE 1 Signed Report Patient Name: RINA RICO Unit No: [id number] EXAMS: CPT CODE: [id number] CT HEAD/BRAIN W/O CONT 79044 <Continued> Orig Print D/T: S:08/27/2021 (1303) MILAD Hicks NAME: RINA RICO [address] [place] [address] PHYS: [place] [address] : 1955 AGE: 66 SEX: F LOC: B.ERS PHONE #: [phone] EXAM DATE: 08/27/2021 STATUS: PRE ER FAX #: [phone] RAD #: D/C DT PAGE 2 Signed ReportTROP-I HIGH SENSITIVITY 2021-08-27 12:36:00 Test Item Value Reference Range Interpretation Comments TROP-I HIGH < 4 ng/L 0-45 N SENSITIVITY (test code = TROPIHS) CAUT ION: Units of the current sarah t methodology (ng /L) differfrom the prior test methodology (ng /mL) by a factor of 1000. 99 th Percentile Uppe r Reference Limit (URL): Fe males: 54 ng/LMales: 78 n g/L In order to distin guish acute elevations of h igh sensitivitytrop onin from other clinical conditions, the FourthUnive rsal Definition of M yocardial Infarction stressesclinica l assessment and the demonstration o f a rise and/orfall in s erial troponin result s above the URL. Results fr om different metho dologies should not be c omparedto one another as quantitative re sults and URLs may vary b ymethod. COMPREHENSIVE METABOLIC [id number] 12:35:00 Test Item Value Reference Range Interpretation Comments SODIUM (test code = 134.0 mmol/L 133-144 N NA) POTASSIUM (test code 3.8 mmol/L 3.5-5.1 N = K) CHLORIDE (test code 103 mmol/L 95-105 N = CL) CARBON DIOXIDE (test 25 mmol/L 21-32 N code = CO2) ANION GAP (test code 6.0 GAP calc 4.0-15.0 N = GAP) GLUCOSE (test code = 117 MG/DL 70-110 H GLU) BLOOD UREA NITROGEN 15 MG/DL 7-18 N (test code = BUN) GLOMERULAR 65 estGFR >60 The estimated FILTRATION RATE glomerular (test code = GFR) filtration rate is computed usingpatient ra ce, age, sex, and s abbie creatinine. If any of theneeded da ta elements are mi ssing the Laboratory can notcompute an estimation of t he glomerular filtration rate .The GFR value units = ml/min/1.73 met er squared. EstimatedGFR va lues above 60 should be interpreted as >60, not anexact number.--- DRUG DOSAGE ALERT -- - Drug dosage adjustments uti lize different calculationpara meter s. CREATININE (test 0.87 MG/DL 0.55-1.30 N Results may be code = CREAT) depressed if p atient is takingN-Acetylc ystei ne (NAC) and Metamizole (Dipyrone). TOTAL PROTEIN (test 7.3 G/DL 6.4-8.2 N code = PROT) ALBUMIN (test code = 3.5 G/DL 3.4-5.0 N ALB) ALBUMIN/GLOBULIN 0.9 RATIO 1.2-2.2 L RATIO (test code = A/G) CALCIUM (test code = 8.4 MG/DL 8.5-10.1 L CA) BILIRUBIN TOTAL 0.32 MG/DL 0.00-1.00 N (test code = BILT) BILIRUBIN DIRECT 0.11 MG/DL 0.00-0.30 N (test code = BILD) BILIRUBIN INDIRECT 0.21 MG/DL 0.2-1.3 N (test code = BILIND) SGOT/AST (test code 27 Unit/L 15-37 N = AST) SGPT/ALT (test code 27 Unit/L 12-78 N = ALT) ALKALINE PHOSPHATASE 85 Unit/L 45-117 N TOTAL (test code = ALKP) INDEX HEMOLYSIS 2 TRACE 10-25 See_Comment [Automated message] (test code = MG Index/DL The system frooly HEMINDEX) generated this result transmit kane reference range : 1 NORMAL. The reference range was not used to interpret this result as normal/abnormal . INDEX ICTERIC (test 1 NORMAL <2 MG See_Comment [Auto mated message] code = ICTINDEX) Index/DL The system which generated this result transmit kane reference range : 1 NORMAL. The reference range was not used to interpret this result as normal/abnormal . INDEX LIPEMIA (test 1 NORMAL <50 See_Comment [Automa kane message] code = LIPINDEX) MG Index/DL The system which generated this result transmit kane reference range : 1 NORMAL. The reference range was not used to interpret this result as normal/abnormal . [id number] 12:32:00 Test Item Value Reference Range Interpretation Comments ALCOHOL (test code = < 3 MG/DL 0-10 N MEDICAL ALCOHOL ALC) RESULTS. SITE W PREPPED WITH BE TADINE. <10 MG/DL ARE CONSIDERED NEGA TIVE. >400 MG/DL MAY BE FATAL.RESULTS F OR MEDICAL USE ONL Y. NOT TO BE USED FOR FORENSIC PURPOSES. CBC W/AUTO [id number] 12:17:00 Test Item Value Reference Range Interpretation Comments WHITE BLOOD CELL (test code = 7.6 K/mm3 4.1-12.1 N WBC) RED BLOOD CELL (test code = RBC) 4.18 M/mm3 3.8-5.5 N HEMOGLOBIN (test code = HGB) 13.0 G/DL 10.6-15.8 N HEMATOCRIT (test code = HCT) 39.1 % 31.8-47.4 N MEAN CELL VOLUME (test code = 93.5 fL 80.1-101.1 N MCV) MEAN CELL HGB (test code = MCH) 31.1 pg 25.3-35.3 N MEAN CELL HGB CONCETRATION (test 33.2 G/DL 32.7-35.1 N code = MCHC) RED CELL DISTRIBUTION WIDTH 12.8 % 12.2-16.4 N (test code = RDW) RED CELL DISTRIBUTION WIDTH 43.8 fL 36.4-46.3 N (test code = RDW-SD) PLATELET COUNT (test code = PLT) 235 K/mm3 155-337 N MEAN PLATELET VOLUME (test code 9.4 fL 6.8-11.2 N = MPV) GRANULOCYTE % (test code = GR%) 89.4 % 37.8-82.6 H IMMATURE GRANULOCYTE % (test 0.7 % 0.0-2.0 N code = IG%) LYMPHOCYTE % (test code = LY%) 3.1 % 14.1-45.4 L MONOCYTE % (test code = MO%) 5.4 % 2.5-11.7 N EOSINOPHIL % (test code = EO%) 0.9 % 0.0-6.2 N BASOPHIL % (test code = BA%) 0.5 % 0.0-2.1 N NUCLEATED RBC % (test code = 0.0 /100WBC% 0.0-1.0 N NRBC%) GRANULOCYTE # (test code = GR#) 6.81 k/mm3 2.0-13.7 N IMMATURE GRANULOCYTE # (test 0.05 K/mm3 0.00-0.03 H code = IG#) LYMPHOCYTE # (test code = LY#) 0.24 K/mm3 0.6-3.8 L MONOCYTE # (test code = MO#) 0.41 K/mm3 0.11-0.59 N EOSINOPHIL # (test code = EO#) 0.07 K/mm3 0.0-0.4 N BASOPHIL # (test code = BA#) 0.04 K/mm3 0.0-0.1 N NUCLEATED RBC # (test code = 0.00 K/mm3 0.0-0.05 N NRBC#) - XR CHEST 1 [id number] 11:47:00 [facility] : 1955 Sex: F FAX: Angel Worley MD [place]: E St: PRE Patient Name: RINA RICO Unit No: [id number] EXAMS: CPT CODE: [id number] XR CHEST1 V 10029 EXAMINATION: - XR CHEST 1 V HISTORY: Shortness of breath COMPARISON: None. LOCATION CODE: C3 FINDINGS: Single frontal view of the chest is submitted for evaluation. The lungs are clear. The cardiac silhouette, mediastinum and pulmonary vasculature are unremarkable. The regional osseous structures are intact IMPRESSION: No acute radiographic abnormality at 1146 Reported and signed by: Galilea Coates MD CC: Angel Clark MDDictated Date/Time: 08/27/2021 (2274)Technologist: Chantal Washington Transcribed Date/Time: 08/27/2021 (8699) By: [email or web address] Orig Print D/T: S: 08/27/2021 (5496) MILAD Hicks NAME: RINA RICO [address] [place] [address] PHYS: Angel Mead, [place] [address] : 1955 AGE: 66 SEX:F LOC: B.ERS PHONE #: [phone] EXAM DATE: 08/27/2021 STATUS: PRE ER FAX #: [phone] RAD NO: DC Dt: PAGE 1 Signed ReportCOVID 19 Asymptomatic IH AG 2020-06-07 11:51:00 Test Item Value Reference Range Interpretation Comments COVID 19 NEGATIVE NEGATIVE Negative result s should be Asymptomatic IH AG treated a s presumptive and (test code = ifinconsistent with COVNONPUIAG) clinical signs and symptoms, or ne cessaryfor patient managem ent, should be tested with an alternativemole cular assay. Negative results do not preclude DMBM-VgL-0jvcrq tion and should not be u sed as the sole basis forp atient management deci sions. Negative result s should beconsidered in the context of a pa tient's recent exposure s,history, presence of cli nical signs and symptoms consistentwith COVID-19. Specimen comments: If not done this admissionCT ANGIOGRAM [id number] 21:31:17 1. ?5 mm aneurysm identified from the right terminal ICA. This is likely anincidental finding. 2. ?No large vessel occlusion or flow-limiting stenosis is identified. Mildatherosclerotic disease is seen in the intracranial vessels.HISTORY:Neuro deficit TECHNIQUE: CTA of the head was performed with IV c ontrast. MIPreconstructions were performed. COMPARISON: None. FINDINGS: Mild atherosclerotic diseaseis seen in the cavernous and supraclinoid ICAsbilaterally without flow-limiting stenosis. There is aaneurysm identified from the terminal right ICA measuring 5 mm(14:261). This suspected anterolaterally. The FRANK and MCA branches areotherwise preserved. A -type left RABBET OPERATOR is seen no sizable right P-comm is identified. Theposterior cerebral and basilar arteries are otherwise unremarkable. Both PICAorigins are seen. [facility], Radiant Results Inft User - 07/05/2019 4:32 PM CDTHISTORY:Neuro deficitTECHNIQUE: CTA of the head was performed with IV contrast. MIPreconstructions were performed. COMPARISON: N one.FINDINGS:Mild atherosclerotic disease is seen in the cavernous and supraclinoid ICAsbilaterally without flow-limiting stenosis.There is a aneurysm identified from the terminal right ICA measuring 5mm(14:261). This suspected anterolaterally. The FRANK and MCA branches areotherwise preserved.A -type left RABBET OPERATOR is seen no sizable right P-comm is identified. Theposterior cerebral and basilar arteries are otherwise unremarkable.Both PICA origins are seen.IMPRESSION1. 5 mm aneurysm identified from the right terminal ICA. This is likely anincidental finding.2. No large vessel occlusion or flow-limiting stenosis is identified. 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 The basal cisterns are unremarkable. No acute intracranial hemorrhage or mass effect is present. The queen-whitematter differentiation is preserved. Patchy hypoattenuation in thebiconvexity deep whitematter is nonspecific and most likely representsmild ischemic small vessel disease. Lobular density in the region of theright carotid terminus represents a small aneurysm. The calvarium and skull base are unremarkable. The mastoid air cells andvisualized paranasal air sinuses are clear. [facility], Radiant Results Inft User - 07/05/2019 4:22 PM CDTCT HEAD WO CONTRASTHISTORY: Female 63 years Neuro deficit(s), subacute COMPARISON: NoneTECHNIQUE: Routine CT head without contrastFINDINGS:The ventricles and cerebral sulci are normal in caliber and configuration.No hydrocephalus, midline shift or pathological extra-axial fluidcollection is present. The basal cisterns are unremarkable.No acute intracranial hemorrhage or mass effect is present. The queen-whitematter differentiation is preserved. Patchy hypoattenuation in thebiconvexity deep white matter is nonspecific and most likely representsmild ischemic small vessel disease. Lobular density in the region of theright carotid terminus represents a small aneurysm.The calvarium and skull base are unremarkable. The mastoid air cells andvisualized paranasal air sinuses are clear.IMPRESSIONNo acute intracranial abnormalityMild ischemic small vessel diseaseRight carotid terminus aneurysmUnLake Granbury Medical CenterCT ANGIOGRAM [id number] 21:14:27 HISTORY: Subacute dizziness, persistent/recurrent.Deficit. TECHNIQUE: Contrast- enhanced 64-mutidetector CT angiography of arteries inthe neck is completed with intravenous injection of Omnipaque 350 nonioniccontrast medium. Subsequently multiple sagittal, coronal and MIPangiographic images are reformatted from the 3-D volume data set. FINDINGS: All 4 vessels in the neck are patent. Aortic arch anatomy isclassic with mild disease noted at the origin of the left subclavianartery. RIGHT CAROTID: Calcified plaque noted in the posterior wall of the carotidbulb without significant encroachment into the arterial lumen. Mildlytortuous internal carotid artery. LEFT Carotid: calcified plaque noted in the medial wall of the carotid bulbwithout significant encroachment into the arterial lumen. Slightly tortuousinternal carotid artery noted without any significant disease. VERTEBRALS: Both vertebral arteriesare patent with antegrade flowconfirmed. Left vertebral artery is smaller in size. Soft tissue density in the left external auditory canal noted which couldbe retained secretions. CONCLUSIONS:1. No significant atherosclerotic disease detected in the carotidcirculation or neck.2. Patent vertebrals withantegrade flow confirmed. [facility], Radiant Results Inft User - 07/05/2019 4:15 PM CDTHISTORY: Subacute dizziness, persistent/recurrent.Deficit.TECHNIQUE: Contrast-enhanced 64-mutidetector CT angiography of arteries inthe neck is completed with intravenous injection of Omnipaque 350 nonioniccontrast medium. Subsequently multiple sagittal, coronal and MIPangiographic images are reformatted from the 3-D volume data set.FINDINGS: All 4 vessels in the neck are patent. Aortic arch anatomy isclassic with milddisease noted at the origin of the left subclavianartery.RIGHT CAROTID: Calcified plaque noted in the posterior wall of the carotidbulb without significant encroachment into the arterial lumen. Mildlytortuous internal carotid artery.LEFT Carotid: calcified plaque noted in the medial wall of the carotid bulbwithout significant encroachment into the arterial lumen. Slightly tortuousinternal carotid artery noted without any significant disease.VERTEBRALS: Both vertebral arteries are patent with antegrad e flowconfirmed. Left vertebral artery is smaller in size.Soft tissue density in the left external auditory canal noted which couldbe retained secretions.CONCLUSIONS:1. No significant atherosclerotic disease detected in the carotidcirculation or neck.2. Patent vertebrals with antegrade flow confirmed. [facility] HospitalTHYROID STIMULATING [id number] 20:49:00 Test Item Value Reference Range Interpretation Comments TSH (test code = See_Comment [Automated message] 5509121301) The system frooly generated this result transmitted ref erence range: 0.45 - 4 .70 mIU/L. The refe rence range was not u sed to interpret this result as normal/abnor mal. Lab Interpretation (test Normal code = 45940-1) [facility] [id number] 20:36:00 Test Item Value Reference Range Interpretation Comments FREE T4 (test code = 4322511442) 1.21 ng/dL 0.78-2.2 Lab Interpretation (test code = Normal 91321-8) [facility] [id number] 20:36:00 Test Item Value Reference Range Interpretation Comments FREE T3 (test code = 1851742572) 3.86 pg/mL 2.77-5.27 Lab Interpretation (test code = Normal 44447-4) [facility] HospitalTroponin [id number] 20:31:00 Test Item Value Reference Range Interpretation Comments TROPONIN I (test <0.012 See_Comment [Automated code = 9945710114) message] The system which generated this result transmitted reference range : <=0.034 ng/mL. The reference range was not used to interpr et this result as normal/abnormal . PATY (test code = Equal or Less than PATY) 0.034 ng/ml---Normal ?Note: Cardiac troponin begins to rise 3-4 hours after the onset of ischemia. Repeat in 4-6 hours if the sample was drawn within 3-4 hours of the onset of the symptom and found normal. Between 0.035 and 0.120 ng/mL--- Borderline. Questionable myocardial injury or necrosis ? ?Note: Serial measurement may be necessary to confirm or exclude the diagnosis of myocardial injury or necrosis; Clinical correlation (symptoms, EKGs, imaging studies, and others) required; Repeat in 4-6 hours if clinically indicated. ? Equal or Higher than 0.121 ng/mL---Abnormal. Myocardial Injury or Necrosis Likely ? Biotin has been reported to cause a negative bias, interpret results relative to patient's use of biotin. ? Lab Interpretation Normal (test code = 15820-6) [facility] / [facility] - DRUG SCREEN [id number] 20:31:00 Test Item Value Reference Range Interpretation Comments BENZO U (test code = Presumptive Positive Negative A 8872964503) CHAY U (test code = Negative Negative 0505338339) AMPHET (test code = Negative Negative 8664376438) THC (test code = Negative Negative 5400281692) METHADONE (test code = Presumptive Positive Negative A 6873008549) Meth U (test code = Negative Negative 8838176477) OPIATES (test code = Negative Negative 1357038820) Cocaine Metabolite (test Negative Negative code = 4799121592) PROPOXY (test code = Negative Negative 6038352525) Tric U (test code = Negative Negative 3090826397) PCP (test code = Negative Negative 3682063125) OXYCOD (test code = Negative Negative 4501996732) PATY (test code = PATY) Urine Drug Cutoff Ranges Benzodiazepines: ? ? 150 ng/mLBarbiturates: ?200 ng/mLAmphetamine: ? 500 ng/mLCannabinoids: ?50 ?ng/mLMethadone: ? 200 ng/mLMethamphetamine: ? ? 500 ng/mL Opiates: ? 100 ng/mL or 2000 ng/mLCocaine: ? 150 ng/mLPropoxyphene: ?300 ng/mLTricyclics: ?300 ng/mLOxycodone: ? 100 ng/mLPCP: ? 25 ?ng/mL The results are to be used only for medical (i.e., treatment) purposes. Unconfirmed screening results must not be used for non-medical purposes (e.g., employment testing, legal testing). Lab Interpretation (test Abnormal code = 00007-2) [facility] HospitalN-TERMINAL [id number] 20:28:00 Test Item Value Reference Range Interpretation Comments NT-proBNP (test code 113 pg/mL See_Comment [Autom ated = 3063597066) message] The system which generated this result transmitted reference range : <=125. The reference range was not used to interpret this result as normal/abnormal . PATY (test code = PATY) Biotin has been reported to cause a negative bias, interpret results relative to patient's use of biotin. Lab Interpretation Normal (test code = 90003-9) [facility] HospitalETHANOL2020-05-05 20:20:00 Test Item Value Reference Range Interpretation Comments ALCOHOL (test code = <10 mg/dL 7926187192) PATY (test code = PATY) <10 Uuftllhx12-321 Toxic>100 Depression of TAPPER SHANK>400 Fatalities Reported [facility] HospitalBasi Metabolic Panel (NA, K, CL, CO2, GLUCOSE, BUN, CREATININE, CA)2019-07-05 20:17:00 Test Item Value Reference Range Interpretation Comments NA (test code = 138 mmol/L 135-145 4300856249) K (test code = 4.4 mmol/L 3.5-5 6522969579) CL (test code = 105 mmol/L 98-108 0723809294) CO2 TOTAL (test code = 28 mmol/L 23-31 7869029635) AGAP (test code = 2-16 6409891204) BUN (test code = 13 mg/dL 7-23 7758424802) GLUCOSE (test code = 99 mg/dL 70-110 3983677012) CREATININE (test code 0.75 mg/dL 0.5-1.04 = 6577207101) CALCIUM (test code = 9.7 mg/dL 8.6-10.6 0726297065) eGFR Calculation mL/min/1.73m2 (Non-) (test code = 1461895110) eGFR Calculation mL/min/1.73m2 () (test code = 3876583211) PATY (test code = PATY) Association of Glomerular Filtration Rate (GFR) and Staging of Kidney Disease* + -+ + ---+| GFR (mL/min/1.73 m2) ?| With Kidney Damage ?| ?Without Kidney Damage+ -------+ ------+ ---------+| ?>90 ?| ?Stage one ?| ? Normal ?+ --+ -+ ----+| ?60-89 ?| ?Stage two ?| ? Decreased GFR ? + -+ + ---+| ?30-59 ?| ?Stage three ?| ? Stage three ? + -+ + ---+| ?15-29 ?| ?Stage four ? | ? Stage four ?+ --+ -+ ----+| ?<15 (or dialysis) ? ?| ?Stage five ? | ? Stage five ?+ --+ -+ ----+ *Each stage assumes the associated GFR level has been in effect for at least three months. ?Stages 1 to 5, with or without kidney disease, indicate chronic kidney disease. Notes: Determination of stages one and two (with eGFR >59mL/min/1.73 m2) requires estimation of kidney damage for at least three months as defined by structural or functional abnormalities of the kidney, manifested by either:Pathological abnormalities or Markers of kidney damage (including abnormalities in the composition of the blood or urine or abnormalities in imaging tests). [facility] HospitalHepatic Function Panel (ALB, T.PRO, BILI T, BU/BC, ALT, AST, ALK PHOS)2019-07-05 20:17:00 Test Item Value Reference Range Interpretation Comments TOTAL BILI (test code = 3158706467) 0.6 mg/dL 0.1-1.1 BILI UNCON (test code = 2351612571) 0.5 mg/dL 0.1-1.1 BILI CONJ (test code = 3817685359) 0.0 mg/dL 0-0.3 T PROTEIN (test code = 6027078550) 7.4 g/dL 6.3-8.2 ALBUMIN (test code = 0228519048) 4.3 g/dL 3.5-5 ALK PHOS (test code = 9518645792) 74 U/L 34-122 ALTv (test code = 1742-6) 21 U/L 5-35 AST(SGOT) (test code = 1716024120) 40 U/L 13-40 Lab Interpretation (test code = Normal 68566-2) [facility] HospitalProthrombin Time (PT) / [id number] 20:08:00 Test Item Value Reference Range Interpretation Comments PROTIME PATIENT (test See_Comment [Auto mated message] code = 5964-2) The system wh ich generated this result transmitted ref erence range: 12.0 - 1 4.7 Seconds. The re ference range was not u sed to interpret this result as normal/abnor mal. INR (test code = 6301-6) Nor mal INR <1.1; Warfarin Therap eutic range 2.0 to 3. 0 or 2.5 to 3.5, dep ending upon the indica tions. Lab Interpretation (test Normal code = 39433-2) [facility] HospitalaPTT2020-05-05 20:06:00 Test Item Value Reference Range Interpretation Comments APTT Patient (test See_Comment [Automat ed code = 3173-2) message] The system which generated this result transmitted reference range : 23 - 38 Seconds . The reference range was not used to interpr et this result as normal/abnormal . PATY (test code = PATY) The [facility] patient population mean normal value for aPTT is 30 seconds. Lab Interpretation Normal (test code = 08223-9) [facility] HospitalUrinalysis2020-05-05 20:03:00 Test Item Value Reference Range Interpretation Comments APPEARANCE (test code = Hazy Clear A 8851632527) COLOR (test code = Yellow Yellow 6953939619) PH (test code = 4.8-8.0 4736962857) SP GRAVITY (test code = 1.003-1.030 2154805489) GLU U QUAL (test code = Normal Normal 6011376718) BLOOD (test code = Negative Negative 8592921419) KETONES (test code = Negative Negative 3349408102) PROTEIN (test code = Negative Negative 2887-8) UROBILIN (test code = Normal Normal [id number]) BILIRUBIN (test code = Negative Negative [id number]) NITRITE (test code = Negative Negative 0823020506) LEUK SACHA (test code = 25/uL Negative A 8545668313) RBC/HPF (test code = See_Comment H [Autom ated message] [id number]) The system frooly generated this result transmitted ref erence range: 0 - 3 HP F. The reference range was not used to int erpret this result as normal/abnormal . WBC/HPF (test code = See_Comment [Autom ated message] [id number]) The system frooly generated this result transmitted ref erence range: 0 - 5 HP F. The reference range was not used to int erpret this result as normal/abnormal . BACTERIA (test code = Negative Negative 2208145960) SQ EPITH (test code = HPF 7075777998) YEAST BUD (test code = See_Comment H [Aut omated message] [id number]) The system frooly generated this result transmitted ref erence range: <=1 HPF. The reference range was not used to int erpret this result as normal/abnormal . Lab Interpretation (test Abnormal code = 99281-9) [facility] WITH [id number] 19:53:00 Test Item Value Reference Range Interpretation Comments WBC (test code = See_Comment [Automated 7390-2) message] The sy stem which generated this result transmitted reference range : 4.30 - 11.10 10*3/?L. The reference range was not used to interpret this result as normal/abnormal . RBC (test code = See_Comment [Automated 329-8) message] The sy stem which generated this result transmitted reference range : 3.93 - 5.25 10*6/?L. The reference range was not used to interpret this result as normal/abnormal . HGB (test code = 13.0 g/dL 11.6-15 718-7) HCT (test code = 38.5 % 35.7-45.2 4544-3) MCV (test code = 91.9 fL 80.6-95.5 787-2) MCH (test code = 31.0 pg 25.9-32.8 785-6) MCHC (test code = 33.8 g/dL 31.6-35.1 786-4) RDW-SD (test code = 43.5 fL 39-49.9 37252-4) RDW-CV (test code = 12.9 % 12-15.5 788-0) PLT (test code = See_Comment [Automated 777-3) message] The sy stem which generated this result transmitted reference range : 166 - 358 10*3/ ?L. The reference r yamileth was not used to interpret this result as normal/abnormal . MPV (test code = 9.4 fL 9.5-12.9 L 07677-1) NRBC/100 WBC (test See_Comment [Automat ed code = 3965308894) message] The system which generated this result transmitted reference range : 0.0 - 10.0 /100 WBCs. The refer ence range was not u sed to interpret th is result as normal/abnormal . NRBC x10^3 (test code <0.01 See_Comment [Auto mated = 9981964443) message] The s ystem which generated this result transmitted reference range : 10*3/?L. The reference range was not used to interpret this result as normal/abnormal . GRAN MAT (NEUT) % 60.0 % (test code = 770-8) IMM GRAN % (test code 0.20 % = 6187069446) LYMPH % (test code = 27.7 % 736-9) MONO % (test code = 5.2 % 5905-5) EOS % (test code = 6.1 % 713-8) BASO % (test code = 0.8 % 706-2) GRAN MAT x10^3(ANC) 5.15 10*3/uL 1.88-7.09 (test code = 3838862601) IMM GRAN x10^3 (test <0.03 0-0.06 code = 9702548290) LYMPH x10^3 (test code 2.38 10*3/uL 1.32-3.29 = 731-0) MONO x10^3 (test code 0.45 10*3/uL 0.33-0.92 = 742-7) EOS x10^3 (test code = 0.52 10*3/uL 0.03-0.39 H 711-2) BASO x10^3 (test code 0.07 10*3/uL 0.01-0.07 = 704-7) Lab Interpretation Abnormal (test code = 68524-5) [facility]"
--- NOTE | 2022-03-06 15:37 | RAD REPORT ---
EXAM DESCRIPTION: CT - CTHCSPWOC - 03/06/2022 3:22 pm CLINICAL HISTORY: Trauma, head and neck injury. fall, head injury COMPARISON: No comparisons TECHNIQUE: Axial 5 mm thick images of the head were obtained. Axial 2 mm thick images of the cervical spine were obtained with sagittal and coronal reconstruction images generated and reviewed. All CT scans are performed using dose optimization technique as appropriate and may include automated exposure control or mA/KV adjustment according to patient size. FINDINGS: CT HEAD WITHOUT CONTRAST: No acute hemorrhage, hydrocephalus or extra-axial collection is identified.Mild generalized brain atr ophy is present with mild periventricular and deep white matter chronic microvascular ischemic change s.No areas of brain edema or midline shift. The paranasal sinuses and mastoids are clear.The calvarium is intact. CT CERVICAL SPINE WITHOUT CONTRAST: No fracture or subluxation.Mild lower cervical degenerative changes.No prevertebral soft tissues swel ling is identified. IMPRESSION: No acute intracranial or cervical spine findings.
--- NOTE | 2022-03-06 15:58 | RAD REPORT ---
EXAM DESCRIPTION: RAD - Pelvis - 03/06/2022 3:53 pm CLINICAL HISTORY: fall, left hip pain COMPARISON: No comparisons FINDINGS: Mild arthritic changes are present in both hips, greater on the right. No acute fracture, dislocation or AVN pattern is observed.
--- NOTE | 2022-03-06 15:58 | RAD REPORT ---
EXAM DESCRIPTION: RAD - Chest Single View - 03/06/2022 3:53 pm CLINICAL HISTORY: fall, chest pain Chest pain. COMPARISON: Chest Single View dated 09/08/2018; CHEST SINGLE VIEW dated 05/19/2014; CHEST SINGLE VIEW dated 12/07/2013; CHEST SINGLE VIEW dated 06/01/2013 FINDINGS: Portable technique limits examination quality. The lungs are grossly clear. The heart is mildly prominent in size. No displaced fractures. IMPRESSION: No acute intrathoracic process suspected.
--- NOTE | 2022-03-06 15:59 | RAD REPORT ---
EXAM DESCRIPTION: RAD - Wrist Right 3 View - 03/06/2022 3:53 pm CLINICAL HISTORY: fall, right wrist pain Pain COMPARISON: No comparisons FINDINGS: No fracture or dislocation seen. Mild soft tissue swelling about the wrist. IMPRESSION: No acute abnormality detected.
--- NOTE | 2022-03-06 15:59 | RAD REPORT ---
EXAM DESCRIPTION: RAD - Elbow Right 3 View - 03/06/2022 3:53 pm CLINICAL HISTORY: right elbow pain COMPARISON: No comparisons FINDINGS: No acute fracture or dislocation seen. Tiny olecranon spur with mild adjacent soft tissue swelling.
--- NOTE | 2022-03-06 16:47 | EDPHYS ---
Physician Documentation [facility] Name: Helene Pastor Age: 66 yrs Sex: Female : 1955 Arrival Date: 03/06/2022 Time: 14:28 Bed 11 Private MD: Jim Dewitt T ED Physician Jonny Sweet HPI: 03/06 15:01 This 66 yrs old Female presents to ER via Ambulatory with complaints of Fall Injury. jmm 15:01 Details of fall: The patient fell from an upright position. Onset: The symptoms/episode jmm began/occurred acutely, 3 week(s) ago. Associated injuries: The patient sustained injury to the head. This is a 66 year old female with a history of htn, hypothyroidism, hlp, that presents to the ED with complaints of right wrist pain, elbow pain, left hip pain, rib pain after falling in her garage. Patient states she tripped and fell on an outstretched hand. Patient denies loc, vomiting, but has had headaches since fall. . Historical: - Allergies: 14:43 No Known Drug Allergies; ll1 - PMHx: 14:43 Hypertension; Hypothyroidism; Hyperlipidemia; brain anuerysm; ll1 - PSHx: 14:43 section; ll1 - Immunization history:: Client reports receiving the 2nd dose of the Covid vaccine. - Social history:: Smoking status: Patient denies any tobacco usage or history of. ROS: 15:01 Constitutional: Negative for fever, chills, and weight loss, Cardiovascular: Negative jmm for chest pain, palpitations, and edema, Respiratory: Negative for shortness of breath, cough, wheezing, and pleuritic chest pain. 15:01 MS/extremity: Positive for pain. 15:01 Neuro: Positive for headache. 15:01 All other systems are negative. Exam: 15:01 Constitutional: This is a well developed, well nourished patient who is awake, alert, jmm and in no acute distress. Head/Face: atraumatic. Eyes: EOMI, no conjunctival erythema appreciated ENT: Moist Mucus Membranes Neck: Trachea midline, Supple Chest/axilla: Normal chest wall appearance and motion. Cardiovascular: Regular rate and rhythm. No edema appreciated Respiratory: Normal respirations, no respiratory distress appreciated Abdomen/GI: Non distended Back: Normal ROM Skin: General appearance color normal MS/ Extremity: Moves all extremities, no obvious deformities appreciated, no edema noted to the lower extremities Neuro: Awake and alert Psych: Behavior is normal, Mood is normal, Patient is cooperative and pleasant Vital Signs: 14:44 BP 168 / 85; Pulse 65; Resp 17; Temp 97.9; Pulse Ox 96% on R/A; Weight 72.57 kg; Height ll1 5 ft. 3 in. (160.02 cm); Pain 10/10; 14:44 Body Mass Index 28.34 (72.57 kg, 160.02 cm) ll1 MDM: 15:01 Patient medically screened. [facility] 16:43 Data reviewed: vital signs, nurses notes. Counseling: I had a detailed discussion with [facility] the patient and/or guardian regarding: the historical points, exam findings, and any diagnostic results supporting the discharge/admit diagnosis, radiology results, the need for outpatient follow up, to return to the emergency department if symptoms worsen or persist or if there are any questions or concerns that arise at home. 03/06 15:03 Order name: CT Head C Spine; Complete Time: 15:40 [facility] 03/06 15:03 Order name: Wrist Right 3 View XRAY; Complete Time: 16:02 [facility] 03/06 15:03 Order name: Pelvis XRAY; Complete Time: 16:02 [facility] 03/06 15:04 Order name: Elbow Right 3 View XRAY; Complete Time: 16:02 [facility] 03/06 15:10 Order name: Chest Single View XRAY; Complete Time: 16:02 [facility] Administered Medications: No medications were administered Disposition: 16:50 Co-signature as Attending Physician, Jonny BROWN was immediately available on-site ms3 in the Emergency Department for consultation in the care of the patient. Disposition Summary: 03/06/22 16:46 Discharge Ordered Location: Home [facility] Condition: Stable [facility] Diagnosis - Other specified sprain of right wrist jmm - Strain of muscle, fascia and tendon of left hip jmm - Headache jm Followup: [facility] - With: Kermit Roberto MD - When: 2 - 3 days - Reason: Recheck today's complaints, Continuance of care, Re-evaluation by your physician Followup: [facility] - With: Gopal Freed MD - When: 2 - 3 days - Reason: Recheck today's complaints, Continuance of care, Re-evaluation by your physician Followup: [facility] - With: Dom Guzman MD - When: 2 - 3 days - Reason: Recheck today's complaints, Continuance of care, Re-evaluation by your physician Followup: [facility] - With: Ba Mtz MD - When: 2 - 3 days - Reason: Recheck today's complaints, Continuance of care, Re-evaluation by your physician Discharge Instructions: - Discharge Summary Sheet [facility] - Wrist Sprain, Adult [facility] - Hip Sprain [facility] Forms: - Medication Reconciliation Form [facility] - Thank You Letter [facility] - Antibiotic Education [facility] - Prescription Opioid Use [facility] Prescriptions: - orphenadrine citrate 100 mg Oral Tablet Sustained Release - take 1 tablet by ORAL route 2 times per day As needed; 20 tablet; Refills: 0, [facility] Product Selection Permitted Signatures: Dispatcher [employer] EDRobin Carbone PA PA jmm Lewis, Lynsay, RN RN ll1 Jonny Sweet DO DO ms3
--- NOTE | 2022-03-06 16:47 | ER ---
Nurse's Notes [facility] Name: Helene Pastor Age: 66 yrs Sex: Female : 1955 Arrival Date: 03/06/2022 Time: 14:28 Bed 11 Private MD: Jim Dewitt T Diagnosis: Other specified sprain of right wrist;Strain of muscle, fascia and tendon of left hip;Headache Presentation: 03/06 14:44 Chief complaint: Patient states: Fell last month. Has had R arm pain since. Bilateral ll1 rib and back pains since. Slight L hip limp. Coronavirus screen: Vaccine status: Patient reports receiving the 2nd dose of the covid vaccine. Client denies travel out of the [place] in the last 14 days. At this time, the client does not indicate any symptoms associated with coronavirus-19. Ebola Screen: Patient denies travel to an Ebola-affected area in the 21 days before illness onset. Initial Sepsis Screen: Does the patient meet any 2 criteria? No. Patient's initial sepsis screen is negative. Does the patient have a suspected source of infection? Yes: Bone or joint infection. Risk Assessment: Do you want to hurt yourself or someone else? Patient reports no desire to harm self or others. Onset of symptoms was February 03, 2022. 14:44 Method Of Arrival: Ambulatory 1 14:44 Acuity: PEPE 4 ll1 Triage Assessment: 16:16 General: Appears in no apparent distress. Behavior is calm, cooperative, appropriate ap3 for age. Historical: - Allergies: 14:43 No Known Drug Allergies; ll1 - PMHx: 14:43 Hypertension; Hypothyroidism; Hyperlipidemia; brain anuerysm; ll1 - PSHx: 14:43 section; ll1 - Immunization history:: Client reports receiving the 2nd dose of the Covid vaccine. - Social history:: Smoking status: Patient denies any tobacco usage or history of. Screenin:16 Abuse screen: Denies threats or abuse. Nutritional screening: No deficits noted. ap3 Tuberculosis screening: No symptoms or risk factors identified. 17:10 [facility] ED Fall Risk Assessment (Adult) History of falling in the last 3 months, ap3 including since admission Yes- single mechanical fall (1 pt). Assessment: 16:16 Pain: Complains of pain in low back area Pain radiates to left leg, and left hip. ap3 Neuro: Level of Consciousness is awake, alert, obeys commands, Oriented to person, place, time, situation. Cardiovascular: Patient's skin is warm and dry. Respiratory: Airway is patent Respiratory effort is even, unlabored, Respiratory pattern is regular, symmetrical. Vital Signs: 14:44 BP 168 / 85; Pulse 65; Resp 17; Temp 97.9; Pulse Ox 96% on R/A; Weight 72.57 kg; Height ll1 5 ft. 3 in. (160.02 cm); Pain 10; 14:44 Body Mass Index 28.34 (72.57 kg, 160.02 cm) ll1 ED Course: 14:28 Patient arrived in ED. mr 14:28 Jim Dewitt MD is Private Physician. mr 14:47 Triage completed. ll1 14:47 Robin Bhatti PA is PHCP. [facility] 14:47 Jonny Sweet DO is Attending Physician. m 14:47 Arm band placed on Patient placed in an exam room, on a stretcher. ll1 15:18 Nandini Granger, MOSHE is Primary Nurse. ap3 15:23 CT Head C Spine In Process Unspecified. EDMS 15:55 Elbow Right 3 View XRAY In Process Unspecified. EDMS 15:55 Wrist Right 3 View XRAY In Process Unspecified. EDMS 15:55 Pelvis XRAY In Process Unspecified. EDMS 15:55 Chest Single View XRAY In Process Unspecified. EDMS 16:17 Patient has correct armband on for positive identification. Placed in gown. Bed in low ap3 position. Door closed. Noise minimized. 16:43 Kermit Roberto MD is Referral Physician. [facility] 16:44 Gopal Freed MD is Referral Physician. jmm 16:44 Dom Guzman MD is Referral Physician. [facility] 16:44 Ba Mtz MD is Referral Physician. jmm 17:10 No provider procedures requiring assistance completed. Patient did not have IV access ap3 during this emergency room visit. Administered Medications: No medications were administered Medication: 17:10 VIS not applicable for this client. ap3 Outcome: 16:46 Discharge ordered by . jmm 17:10 Discharged to home ambulatory. ap3 17:10 Condition: good 17:10 Discharge instructions given to patient, Instructed on discharge instructions, follow up and referral plans. medication usage, Demonstrated understanding of instructions, follow-up care, medications, Prescriptions given X 1. 17:10 Patient left the ED. ap3 Signatures: Dispatcher [employer] EDMS Robin Bhatti PA PA jmm Rivera, Mary mr Nandini Granger, RN RN ap3 Desire Gaines RN RN ll1
[2022-03-06 17:20] VITALS: BP 168/85; TEMP 97.9; O2SAT 96
== END 2022-03-06 17:10 | disposition home or self-care (01) ==
LOC: ER 14:23
DX: S63.591A Other specified sprain of right wrist, initial encounter (principal); S76.012A Strain of muscle, fascia and tendon of left hip, initial encounter; R51.9 Headache, unspecified; I10 Essential (primary) hypertension
CPT/HCPCS: 70450; 71045; 72125; 72170; 99283

== ENCOUNTER 2022-09-26 19:50 | Emergency (ER) | payer OTHER ==
--- OUTSIDE RECORDS SUMMARY | 2022-09-26 19:56 | XMS REPORT | Continuity of Care Document ---
:1955 Author Organization [facility] t Address [address] [facility] [address] [place] [address] Care Team Providers Name Role Phone Boom Emery [facility] Primary Care P hysician Shon Tejada Attending Clinician Unavailable BRITTNEY GAMBOA Attending Clinician Unavailable Jeremy Jones MD Attending Clinician Angel Clark Attending Clinician Unavailable Radha White RN Attending Clinician Unavailable Only, Ang Db Test Attending Clinician Unavailable Unknown, Attending Attending Clinician Unavailable LESIA FRAZIER Attending Clinician Unavailable Susy Dixon Attending Clinician Doctor Unassigned, [place] Attending Clinician Unavailable Brittney Kumar LMSW Attending Clinician Kelly Banks MD Attending Clinician KELLY BANKS Attending Clinician Unavailable Sondra Sethi PA-C Attending Clinician GLENN ARORA Attending Clinician Unavailable Glenn Arora MD Attending Clinician [facility] Attending Clinician Unavailable Lesa Srinivasan Attending Clinician Shon Tejada Admitting Clinician Unavailable Physician, No Primary or Family Admitting Clinician Unavaila GLENN Todd Admitting Clinician Unavailable Payers Payer Name Policy Type Policy Number Effective Date Expiration Date Dion antunez MEDICARE PART A [id number] 2020 \\T\\ B 00:00:00 Problems Condition Condition Condition Status Onset Resolution Last Treating Co mments Source Name Details Category Date Date Treatment Clinician Date Other Other Disease Active Univers general general 1-20 [place] of counseling [place] and advice and advice 00 Mo dical for for Branch contracept contracept franca franca management management History of History of Disease Active U nivers depression depression 1-20 it y of 00:00: [place] [facility] History of History of Disease Active U nivers anxiety anxiety 1-20 ity of 00:00: [place] [address] Medical Branch Essential Essential Disease Active Uni vers hypertensi hypertensi 1-20 it y of on, benign [place], benign [place] [facility] [place] Hypothyroi Hypothyroi Disease Active U nivers dism dism 1-20 ity of 00:00: [place] [facility] History of History of Disease Active U nivers tubal tubal 1-20 ity of ligation ligation 00:00: [place] [address] Medical Branch Over Over Disease Active Univers weight weight 1-20 ity of 00:00: [place] [facility] Lump of Lump of Disease Active Univers right right 1-20 ity of breast breast 00:00: [place] [facility] Allergies, Adverse Reactions, Alerts Allergy Allergy Status Severity Reaction(s) Onset Inactive Treating Comm ents Source Name Type Date Date Clinician No Known DA Active U [facility] All[facility]ie 6- [place] s 00:00: [facility] No Known DA Active U [facility] Allergie 4- Zebulon s 00:00: [facility] No Known DA Active U [facility] Allergie 4- [place] s 00:00: [facility] NO KNOWN Drug Active Univers ALLERGIE Class ity of S [facility] Social History Social Habit Start Date Stop Date Quantity Comments Source History of tobacco 1976-03-21 Cigarette Smoker [facility] 00:00:00 [facility] Exposure to 2021-07-26 2021-08-[address] [facility] SARS-CoV-2 (event) 00:00:00 08:32:00 [facility] Alcohol intake 2021-08-05 2021-08-05 0 /d University of 00:00:00 00:00:00 [facility] Cigarettes smoked 2016-03-21 2016-03-21 Univers ity of current (pack per 00:00:00 00:00:00 [facility] ) - Reported Branch Tobacco use and 2016-03-21 2016-03-21 Never used Universit y of exposure 00:00:00 00:00:00 [facility] Cigarette 2016-03-21 2016-03-21 University of pack-years 00:00:00 00:00:00 [facility] Tobacco Comment 2016-03-21 2016-03-21 wants to quit Univer sity of 00:00:00 00:00:00 but gets anxious [facility] [birth year] [facility] Smoking Status Start Date Stop Date Source Current every day smoker 2016-03-21 00:00:00 Uni versity of [facility] Medications Ordered Filled Start [...] of 350 21:15: 20:57 s, ONCE, 1 [place] BULK-100 00 :00 dose, Tue Medica l mL) 07/05/19 at Branch injection 1615, 100 mL Routine lisinopril 2019-0 2020- No 40mg Take 40 mg Univers 40 mg 5-05 05-05 by mouth ity of tablet 18:26: 00:00 daily. [place] 10 :00 Medical Branch CARVEDILOL 2019-0 2020- No .25mg Take 0.25 Univers ORAL 5-05 05-05 mg by ity of 18:26: 00:00 mouth 2 [place] 10 :00 (two) Medical times Branch daily. LEVOTHYROXI 2019-0 2020- No Take by Un ethan NE SODIUM 5-05 05-05 mouth. ity of (LEVOTHYROX 18:26: 00:00 [place] INE ORAL) 10 :00 Medical Branch CLOPIDOGREL 2019-0 2020- No Take by Un ethan BISULFATE [...] of tablet 00:00: daily. Medical Branch lisinopril- 2019-0 Yes 2{tbl} Take 2 Un ethan hydrochloro [...] BY ity of tablet 00:00: MOUTH IN [place] THE Medical MORNING ON Branch AN EMPTY STOMACH clopidogreL 2020-0 Yes 75mg Take 75 mg Univers 75 mg 4-04 by mouth ity of tablet 00:00: daily. Medical Branch pravastatin 2020-0 Yes 40mg Take 40 mg Univers 40 mg 4-04 by mouth ity of tablet 00:00: daily. [place] [facility] lisinopril- 2020-0 Yes 2{tbl} Take 2 Un ethan hydrochloro 4-04 tablets by it y of thiazide 00:00: mouth [place] 20-12.5 mg 00 daily. Medical per tablet Branch citalopram 2020-0 Yes 40mg Take 40 mg U nivers 20 mg 4-04 by mouth ity of tablet 00:00: daily. [place] [facility] levothyroxi 2020-0 Yes TAKE 1 Univ ers ne 125 mcg 4-04 TABLET BY ity of tablet 00:00: MOUTH IN [place] THE Medical MORNING ON Branch AN EMPTY STOMACH clopidogreL 2020-0 Yes 75mg Take 75 mg Univers 75 mg 4-04 by mouth ity of tablet 00:00: daily. Medical Branch pravastatin 2020-0 Yes 40mg Take 40 mg Univers 40 mg 4-04 by mouth ity of tablet 00:00: daily. [place] [facility] lisinopril- 2020-0 Yes 2{tbl} Take 2 Un ethan hydrochloro 4-04 tablets by it y of thiazide 00:00: mouth [place] 20-12.5 mg 00 daily. Medical per tablet Branch citalopram 2020-0 Yes 40mg Take 40 mg U nivers 20 mg 4-04 by mouth ity of tablet 00:00: daily. [place] [facility] levothyroxi 2020-0 Yes TAKE 1 Univ ers ne 125 mcg 4-04 TABLET BY ity of tablet 00:00: MOUTH IN [place] THE Medical MORNING ON Branch AN EMPTY [...] BY ity of tablet 00:00: MOUTH IN [place] THE Medical MORNING ON Branch AN EMPTY [...] BY ity of tablet 00:00: MOUTH IN [place] THE Medical MORNING ON Branch AN EMPTY [...] BY ity of tablet 00:00: MOUTH IN [place] THE Medical MORNING ON Branch AN EMPTY STOMACH clopidogreL 2020-0 Yes 75mg Take 75 mg Univers 75 mg 4-04 by mouth ity of tablet 00:00: daily. Medical Branch pravastatin 2020-0 Yes 40mg Take 40 mg Univers 40 mg 4-04 by mouth ity of tablet 00:00: daily. [place] [facility] lisinopril- 2020-0 Yes 2{tbl} Take 2 Un ethan hydrochloro 4-04 tablets by it y of thiazide 00:00: mouth [place] 20-12.5 mg 00 daily. Medical per tablet Branch citalopram 2020-0 Yes 40mg Take 40 mg U nivers 20 mg 4-04 by mouth ity of tablet 00:00: daily. [place] [facility] levothyroxi 2020-0 Yes TAKE 1 Univ ers ne 125 mcg 4-04 TABLET BY ity of tablet 00:00: MOUTH IN [place] THE Medical MORNING ON Branch AN EMPTY STOMACH clopidogreL 2020-0 Yes 75mg Take 75 mg Univers 75 mg 4-04 by mouth ity of tablet 00:00: daily. [place] [facility] pravastatin 2020-0 Yes 40mg Take 40 mg Univers 40 mg 4-04 by mouth ity of tablet 00:00: daily. [place] [facility] lisinopril- 2020-0 Yes 2{tbl} Take [...] BY ity of tablet 00:00: MOUTH IN [place] THE Medical MORNING ON Branch AN EMPTY STOMACH clopidogreL 2020-0 Yes 75mg Take 75 mg Univers 75 mg 4-04 by mouth ity of tablet 00:00: daily. [place] [facility] pravastatin 2020-0 Yes 40mg Take [...] by mouth ity of tablet 00:00: daily. [place] [facility] levothyroxi 2020-0 Yes TAKE 1 Univ ers ne 125 mcg 4-04 TABLET BY ity of tablet 00:00: MOUTH IN [place] THE Medical MORNING ON Branch AN EMPTY STOMACH clopidogreL 2020-0 Yes 75mg Take 75 mg Univers 75 mg 4-04 by mouth ity of tablet 00:00: daily. [place] [facility] pravastatin 2020-0 Yes 40mg Take 40 mg Univers 40 mg 4-04 by mouth ity of tablet 00:00: daily. [place] [facility] lisinopril- 2020-0 Yes 2{tbl} Take 2 Un ethan hydrochloro 4-04 tablets by it y of thiazide 00:00: mouth [place] 20-12.5 mg 00 daily. Medical per tablet Branch citalopram 2020-0 Yes 40mg Take 40 mg U nivers 20 mg 4-04 by mouth ity of tablet 00:00: daily. [place] [facility] levothyroxi 2020-0 Yes TAKE 1 Univ ers ne 125 mcg 4-04 TABLET BY ity of tablet 00:00: MOUTH IN [place] THE Medical MORNING ON Branch AN EMPTY STOMACH clopidogreL 2020-0 Yes 75mg Take 75 mg Univers 75 mg 4-04 by mouth ity of tablet 00:00: daily. [place] [facility] pravastatin 2020-0 Yes 40mg Take 40 mg Univers 40 mg 4-04 by mouth ity of tablet 00:00: daily. [place] [facility] lisinopril- 2020-0 Yes 2{tbl} Take 2 Un ethan hydrochloro 4-04 tablets by it y of thiazide 00:00: mouth [place] 20-12.5 mg 00 daily. Medical per tablet Branch citalopram 2020-0 Yes 40mg Take 40 mg U nivers 20 mg 4-04 by mouth ity of tablet 00:00: daily. [place] [facility] levothyroxi 2020-0 Yes TAKE 1 Univ ers ne 125 mcg 4-04 TABLET BY ity of tablet 00:00: MOUTH IN [place] THE Medical MORNING ON Branch AN EMPTY [...] by mouth ity of tablet 00:00: daily. [place] [facility] levothyroxi 2020-0 Yes TAKE 1 Univ ers ne 125 mcg 4-04 TABLET BY ity of tablet 00:00: MOUTH IN [place] THE Medical MORNING ON Branch AN EMPTY [...] BY ity of tablet 00:00: MOUTH IN [place] THE Medical MORNING ON Branch AN EMPTY STOMACH clopidogreL 2020-0 Yes 75mg Take 75 mg Univers 75 mg 4-04 by mouth ity of tablet 00:00: daily. [place] [facility] pravastatin 2020-0 Yes 40mg Take [...] BY ity of tablet 00:00: MOUTH IN [place] THE Medical MORNING ON Branch AN EMPTY STOMACH clopidogreL 2020-0 Yes 75mg Take 75 mg Univers 75 mg 4-04 by mouth ity of tablet 00:00: daily. [place] [facility] pravastatin 2020-0 Yes 40mg Take 40 mg Univers 40 mg 4-04 by mouth ity of tablet 00:00: daily. [place] [facility] lisinopril- 2020-0 Yes 2{tbl} Take 2 Un ethan hydrochloro 4-04 tablets by it y of thiazide 00:00: mouth [place] 20-12.5 mg 00 daily. Medical per tablet Branch citalopram 2020-0 Yes 40mg Take 40 mg U nivers 20 mg 4-04 by mouth ity of tablet 00:00: daily. [place] [facility] levothyroxi 2020-0 Yes TAKE 1 Univ ers ne 125 mcg 4-04 TABLET BY ity of tablet 00:00: MOUTH IN [place] THE Medical MORNING ON Branch AN EMPTY STOMACH clopidogreL 2020-0 Yes 75mg Take 75 mg Univers 75 mg 4-04 by mouth ity of tablet 00:00: daily. Medical Branch pravastatin 2020-0 Yes 40mg Take 40 mg Univers 40 mg 4-04 by mouth ity of tablet 00:00: daily. [place] [facility] lisinopril- 2020-0 Yes 2{tbl} Take 2 Un ethan hydrochloro 4-04 tablets by it y of thiazide 00:00: mouth [place] 20-12.5 mg 00 daily. Medical per tablet Branch citalopram 2020-0 Yes 40mg Take 40 mg U nivers 20 mg 4-04 by mouth ity of tablet 00:00: daily. [place] [facility] levothyroxi 2020-0 Yes TAKE 1 Univ ers ne 125 mcg 4-04 TABLET BY ity of tablet 00:00: MOUTH IN [place] THE Medical MORNING ON Branch AN EMPTY STOMACH clopidogreL 2020-0 Yes 75mg Take 75 mg Univers 75 mg 4-04 by mouth ity of tablet 00:00: daily. [place] [facility] pravastatin 2020-0 Yes 40mg Take 40 mg Univers 40 mg 4-04 by mouth ity of tablet 00:00: daily. [place] [facility] lisinopril- 2020-0 Yes 2{tbl} Take 2 Un ethan hydrochloro 4-04 tablets by it y of thiazide 00:00: mouth [place] 20-12.5 mg 00 daily. Medical per tablet Branch citalopram 2020-0 Yes 40mg Take 40 mg U nivers 20 mg 4-04 by mouth ity of tablet 00:00: daily. [place] [facility] carvediloL 2020-0 Yes 25mg Take 25 mg U nivers 25 mg 4-03 by mouth 2 ity of tablet 00:00: (two) [place] 00 times Medical daily. Branch carvediloL 2020-0 Yes 25mg Take 25 mg U nivers 25 mg 4-03 by mouth 2 ity of tablet 00:00: (two) [place] 00 times Medical daily. Branch carvediloL 2020-0 Yes 25mg Take 25 mg U nivers 25 mg 4-03 by mouth 2 ity of tablet 00:00: (two) [place] 00 times Medical daily. Branch carvediloL 2020-0 Yes 25mg Take 25 mg U nivers 25 mg 4-03 by mouth 2 ity of tablet 00:00: (two) [place] 00 times Medical daily. Branch carvediloL 2020-0 [...] mouth 2 ity of tablet 00:00: (two) [place] 00 times Medical daily. Branch carvediloL 2020-0 [...] ALLOW TO Branch DISSOLVE ONE TIME nitroglycer Yes PLACE 1 Uni vers in 0.4 mg 3-05 TABLET ity of sublingual 00:00: [place]ER THE [place] tablet 00 TONGUE AND Medical ALLOW TO Branch DISSOLVE ONE TIME nitroglycer 2019-[address] 1 Uni vers in 0.4 mg 3-05 TABLET ity of sublingual 00:00: [place] tablet 00 TONGUE AND Medical ALLOW TO Branch DISSOLVE ONE TIME aspirin 325 Yes 325mg Take 325 U [...] ity of 22:19: mouth [place] 25 daily. [facility] Vital Signs Vital Name Observation Time Observation Value Comments Source Systolic blood 2020-09-03 15:56:00 167 mm[Hg] Univer sity of pressure [facility] Diastolic blood 2020-09-03 15:56:00 80 mm[facility]Hg[facility] 2020-09-03 15:54:00 64 /min [facility] Respiratory rate 2020-09-03 15:54:00 16 /min [facility] height 2020-09-03 15:54:00 160 cm Universi ty of [place] [facility] Body weight 2020-09-03 15:54:00 72.122 kg Universi ty of [place] [facility] BMI 2020-09-03 15:54:00 28.17 kg/m2 Universi ty of [place] [facility] Oxygen saturation in 2020-09-03 15:54:00 95 /min University of Arterial blood by [place] Medi yadira Pulse oximetry Branch Systolic blood 2019-07-05 21:32:38 174 mm[Hg] Univer sity of pressure [place] [facility] Diastolic blood 2019-07-05 21:32:38 72 mm[Hg] Unive rsity of pressure [place] [facility] Heart rate 2019-07-05 21:32:38 67 /min Universi ty of [place] [facility] Respiratory rate 2019-07-05 21:32:38 18 /min Univ ersity of [place] [facility] Oxygen saturation in 2019-07-05 21:32:38 93 /min University of Arterial blood by [facility] yadira Pulse oximetry Branch Body temperature 2019-07-05 19:02:00 36.78 [place] Univ ersity of [place] [facility] Body weight 2019-07-05 19:02:00 74.844 kg Universi ty of [place] [facility] BMI 2019-07-05 19:02:00 29.23 kg/m2 Universi ty of [place] [facility] Systolic blood 2019-07-05 21:32:38 174 mm[Hg] Univer sity of pressure [place] [facility] Diastolic blood 2019-07-05 21:32:38 72 mm[Hg] Unive rsity of pressure [place] [facility] Heart rate 2019-07-05 21:32:38 67 /min Universi ty of [place] [facility] Respiratory rate 2019-07-05 21:32:38 18 /min Univ ersity of [place] [facility] Oxygen saturation in 2019-07-05 21:32:38 93 /min University of Arterial blood by [facility] yadira Pulse oximetry Branch Body temperature 2019-07-05 19:02:00 36.78 [place] Univ ersity of [place] [facility] Body weight 2019-07-05 19:02:00 74.844 kg Universi ty of [place] [facility] BMI 2019-07-05 19:02:00 29.23 kg/m2 Universi ty of [place] [facility] Systolic blood 2019-07-05 18:14:00 131 mm[Hg] Univer sity of pressure [place] [facility] Diastolic blood 2019-07-05 18:14:00 82 mm[Hg] Unive rsity of pressure [place] [facility] Heart rate 2019-07-05 18:14:00 79 /min Universi ty of [place] [facility] Body temperature 2019-07-05 18:14:00 37.22 [place] Univ ersity of [place] [facility] Respiratory rate 2019-07-05 18:14:00 18 /min Univ ersity of [place] [facility] Body height 2019-07-05 18:14:00 160 cm Universi ty of [place] [facility] Body weight 2019-07-05 18:14:00 68.947 kg Universi ty of [place] [facility] BMI 2019-07-05 18:14:00 26.93 kg/m2 Universi ty of [place] [facility] Oxygen saturation in 2019-07-05 18:14:00 98 /min University of Arterial blood by [facility] Pulse oximetry Branch Systolic blood 2019-07-05 18:14:00 131 mm[Hg] Univer sity of pressure [place] [facility] Diastolic blood 2019-07-05 18:14:00 82 mm[Hg] Unive rsity of pressure [place] [facility] Heart rate 2019-07-05 18:14:00 79 /min Universi ty of [place] [facility] Body temperature 2019-07-05 18:14:00 37.22 [place] Univ ersity of [place] [facility] Respiratory rate 2019-07-05 18:14:00 18 /min Univ ersity of [place] [facility] Body height 2019-07-05 18:14:00 160 cm Universi ty of [place] [facility] Body weight 2019-07-05 18:14:00 68.947 kg Universi ty of [place] [facility] BMI 2019-07-05 18:14:00 26.93 kg/m2 Universi ty of [place] [facility] Oxygen saturation in 2019-07-05 18:14:00 98 /min University of Arterial blood by [facility] Pulse oximetry Branch Procedures Procedure Date / Time Performing Clinician Source Performed CONSENT/REFUSAL FOR 2020-09-03 15:40:49 Doctor Unassigned, No [facility] DIAGNOSIS AND TREATMENT Name Medical Branch ASSIGNMENT OF BENEFITS 2020-09-03 15:40:33 Doctor Unassigned, No University [facility] Name Medical Branch REFERRAL- 2020-07-03 05:01:00 Doctor Unassigned, No Univer [facility] [place] [facility] REQUEST/RESPONSE Name [facility] CT ANGIOGRAM HEAD 2019-07-05 21:07:17 Glenn Arora [facility] [place] [facility] CT ANGIOGRAM NECK 2019-07-05 21:07:17 Glenn Arora [facility] [place] [facility] CT HEAD WO CONTRAST 2019-07-05 20:55:54 Glenn Arora [facility] ADC / LCC - DRUG SCREEN 2019-07-05 19:32:[address] [facility] TRIAGE [facility] URINALYSIS 2019-07-05 19:31:00 [facility] CBC WITH DIFFERENTIAL 2019-07-05 19:29:00 [facility] / INR 2019-07-05 19:29:00 Glenn Arora [facility] ACTIVATED PARTIAL 2019-07-05 19:29:00 Ulysses [facility] THRMPLAS SOFIA [facility] N-TERMINAL PRO-BNP 2019-07-05 19:29:00 Glenn Arora [facility] FREE T3 2019-07-05 19:29:00 Ulysses [facility] TROPONIN I 2019-07-05 19:29:00 Ulysses [facility] FREE T4 2019-07-05 19:29:00 Ulysses [facility] THYROID STIMULATING 2019-07-05 19:29:00 Glenn Arora [facility] HORMONE [facility] HEPATIC FUNCTION PANEL 2019-07-05 19:29:00 Glenn Arora [facility] ([id number]) (ALB,T.PRO,BILI [facility] T,BU/BC,ALT,AST,ALK PHOS) BASIC METABOLIC PANEL 2019-07-05 19:29:00 Glenn Arora [facility] (NA, K, CL, CO2, Medical Branch GLUCOSE, BUN, CREATININE, CA) ETHANOL 2019-07-05 19:29:00 Ulysses [facility] EKG-12 LEAD 2019-07-05 19:08:49 Glenn [facility]ora [facility] Encounters Start End Encounter Admission Attending Care Care Encounter Source Date/Time Date/Time Type Type Clinicians Facility Department ID 2020-06-06 Inpatient [facility], HCAMN HCAMN [id number] [facility] 15:07:03 Advitya 70 [facility] 2021-08-30 2021-08-30 Outpatient Adriana GAMBOA [facility] [id number] Univers 12:00:00 12:00:00 [facility] 2021-08-29 2021-08-29 Telephone Jeremy Jones [facility] [id number] Univers 00:00:00 00:00:00 [facility] [id number] it [id number] [id number] [address] OFFICE BUILDING 2021-08-28 2021-08-28 Telephone Jeremy Jones [facility] 1..[id number] Univers 00:00:00 00:00:00 [facility] [id number] [id number] [id number] [address] OFFICE [facility] 2021-08-27 2021-08-27 Emergency EM Crismon, HCACR H[facility]CR [id number] [facility] 11:22:00 18:43:00 Christopher [id number] [facility] 2021-08-27 2021-08-27 Emergency EM Crismon, HCACR [facility] [id number] [facility] 11:22:00 18:43:00 Christopher 16 [facility] 2021-08-05 2021-08-05 Telemedici Jeremy Jones [facility] [id number] Univers 11:30:00 11:45:00 ne Visit [facility] [id number] i [id number] [id number] [address] OFFICE BUILDING 2021-08-05 2021-08-05 Outpatient R JEREMY JONES [facility] [id number] Univers 11:30:00 [facility]30[facility] 2021-07-09 2021-07-09 Telephone Jeremy Jones [facility] [id number] Univers 00:00:00 00:00:00 [facility] [id number] it [id number] [phone] [address] OFFICE BUILDING 2021-03-06 2021-03-06 Letter GREG White [id number] Univers 00:00:00 00:00:00 (Out) Radha JAIME [id number] it y of HOSPITAL [id number] Jmimy as [id number] [address] 2021-03-05 2021-03-05 Laboratory Only, Ang Db Test [facility] 1.2.8 40.114 [id number] Univers 10:00:00 10:15:00 Only Unknown, Attending HEALTH [id number] ity of [place] [id number] Jimmy as SHADI?BLEA [phone] [address] MEDICAL OFFICE BUILDING 2021-03-05 2021-03-05 Outpatient R FREDDIE [facility] [id number] Univers 10:00:00 10:11:51 LESIA [facility] 2020-09-28 2020-09-28 Outpatient R BEE [facility] [id number] Univers 08:00:00 08:00:00 BRITTNEY [facility] 2020-09-27 2020-09-27 [facility] [id number] Univers 00:00:00 00:00:00 [facility] [id number] [id number] [id number] [address] Office Building 2020-09-03 2020-09-03 Office Jeremy Jones [facility] 1.2.840.114 [id number] Univers 10:41:27 11:11:27 Visit [facility] [id number] [id number] [phone] [address] Office Building 2020-09-03 2020-09-03 Outpatient R JEREMY JONES [facility] [id number] Univers 10:45:00 10:45:00 ity [facility] 2020-09-03 2020-09-03 Orders Doctor GREG 1.2.840.114 [id number] Univers 00:00:00 00:00:00 Only Unassigned, ADDISON [id number] ity of [place] [facility] [id number] Jimmy as [id number] [address] 2020-07-03 2020-07-03 Orders Doctor GREG [id number] Univers 00:00:00 00:00:00 Only Unassigned, ADDISON [id number] ity of [place] [facility] [id number] Jimmy as [id number] [address] 2019-07-13 2019-07-13 Patient Stacy [facility] [id number] Univers 00:00:00 00:00:00 Outreach Brittney [facility] [id number] [id number] [id number] [address] Office [facility] 2019-07-13 2019-07-13 Patient Stacy [facility] 1.2.840.114 [id number] 00:00:00 00:00:00 Outreach Brittney [facility] [id number] [place] [id number] [place] [id number] [place] [address] Office [facility] 2019-07-12 2019-07-12 [place] MOSAMAN 1.2.840.114 [id number] [facility] [place] 08:02:20 15:54:40 ne Visit [facility] [id number] i ty [id number] [phone] [address] Office Building 2019-07-12 2019-07-12 Telemdaisy [place] MOSAMAN 1.2.840.114 [id number] 08:02:20 15:54:40 ne Visit [facility] [id number] [place] [id number] [place] [phone] [place] [address] Office [facility] 2019-07-12 2019-07-12 Outpatient R MELIDA [facility] [id number] Univers 14:00:00 14:00:00 KELLY rivera [facility] 2019-07-08 2019-07-08 Telephone MEDARDO Sethi 1.2.840.114 [id number] Univers 00:00:00 00:00:00 Sondra R Y HEALTH 350.1.13.10 i ty of CL[place] [id number] [address] 2019-07-08 2019-07-08 Telephone Navdeep [facility] 1.2.840.114 [id number] 00:00:00 00:00:00 Sondra R Y HEALTH 350.1.13.10 CLINICS 4.2.7.2.686 [id number] [facility] 2019-07-06 2019-07-06 Telephone [facility] 1.2.557.226 [id number] 8735 [facility] [place] 00:00:00 00:00:00 Sondra R Health 350.1.13.10 [place] [id number] [address] Office [facility] 2019-07-06 2019-07-06 Telephone [facility] 1.2.435.391 [id number] [id number] 00:00:00 00:00:00 Sondra R Health 350.1.13.10 [place] 4.2.7.2.686 [place] [phone] [place] [address] Office [facility] 2019-07-05 2019-07-05 Emergency X ARORA, [facility] [id number] Univers 14:06:20 17:15:00 GLENN bermudezjohn [facility] 2019-07-05 2019-07-05 Emergency [facility] 1.2.131.785 [id number] Univers 14:06:20 17:15:00 Glenn Lemon 350.1.13.10 i ty of [place].2.[place] [id number] [address] 2019-07-05 2019-07-05 Emergency [facility] 1.2.532.151 [id number] 14:06:20 17:15:00 Glenn Lemon 350.1.13.10 [place] 4.2.7.2.686 [place] [id number] [facility] 2019-07-05 2019-07-05 Urgent Pob1, Acute Care [facility] 1. 2.840.114 [id number] Univers 13:05:12 14:04:05 Care Lesa Siegel [facility] 350.1.13.10 ity of [place] 4.2.7.2.686 Jimmy as Professio [phone] Me dical [address] Office [facility] 2019-07-05 2019-07-05 Urgent Pob1, Acute [facility] 1.2.840.114 [id number] 13:05:12 14:04:05 [facility] 350.1.13.10 [place] 4.2.7.2.686 Professio [id number] nal [facility] Office [facility] 2019-07-05 2019-07-05 Outpatient R [facility] [id number] Univers 13:00:00 13:00:00 [facility] Results Test Description Test Time Test Comments Results Result Comments Source COVID 19 INHOUSE AG 2021-08-27 14:12:00 Test Item Value Reference Range Interpretation Comme nts COVID 19 INHOUSE AG (test code = Positive Neg A ON 08/27/21 AT 1409, a.STF.KM01 [id number]) CALLED TO GENI HENDRICKSON RN.The report was confirmed b y read back protocols Y,N: YES. DRUGS OF ABUSE SCREEN [id number] 14:05:00 Test Item Value Reference Interpretation Comments [...] are available. Clin ical consideration andprofessional judgement shoul d be applied to any drug ofabuse test re sult, particularly wh en preliminary positiveresults are used. [Automate d message] The sy stem which generated this result transmit kane reference range : <25 NG/ML. The refe rence range was not u sed to interpret this result as normal/abnormal . - CT ANGIO [id number] 14:00:00 [facility] CONROEName: HELENE PASTOR : 1955 Sex: F Patient Name: HELENE PASTOR Unit No: [id number] EXAMS: CPT CODE: [id number] CT ANGIO HEAD 38469 EXAM: CT angiogram head with contrast. CT [...] iterative reconstruction. FINDINGS: For the purpose of thisdictation, hemodynamically significant stenosis is characterized as greater [...] No hemodynamically significant narrowing, or aneurysm seen. Basilarartery: No hemodynamically significant narrowing, or aneurysm seen. [...] Subclavian arteries: Right: No hemodynamically significant narrowing, oraneurysm seen. Left: No hemodynamically significant narrowing, or aneurysm seen. MILAD Hicks NAME: HELENE MCLAUGHLIN [address] [place] [address] PHYS: [facility] Angel [place]Josh[place] [phone] : 1955 AGE: 66 SEX: F LOC: B.ERS PHONE #: [phone] EXAM DATE: 08/27/2021TATUS: REG ER FAX #: [phone] RAD #: D/C DT PAGE 1 Signed Report (CONTINUED) Patient Name: HELENE PASTOR Unit No: [id number] EXAMS: CPT CODE: [id number] CT ANGIO HEAD 06310 <Continued> Common carotid arteries: Right: No hemodynamically [...] abnormality appreciated within the visualized chest. Osseous st ructures: No acute or destructive osseous process is seen. IMPRESSION: Aneurysm seen arising from the supraclinoid portion of the right ICA measuring 3.9 x 3.5 x 2.3 mm in size. No evidence of hemodynamically significant narrowing noted involving the major arteries of the anterior and posterior circulation. at 1400 Reported and signed by: Harvinder Marcelino MD CC: Angel Clark MD Dictated Date/Time: 08/27/2021 (1400) Technologist: FILIBERTO CTDI: 34.74 DLP: 1252.63 Trnscrpt: 08/27/2021 (1399) [email or web address] MILAD Hicks NAME: HELENE PASTOR [address] [place] [address] PHYS: [facility] [place], [place] [address] : 1955 AGE:66 SEX: F LOC: Thelma.ERS PHONE #: [phone] EXAM DATE: 08/27/2021 STATUS: REG ER FAX #: [phone] RAD #: D/C DT PAGE 2 Signed Report Patient Name: HELENE PASTOR Unit No: [id number] EXAMS: CPT CODE: [id number] CT ANGIO HEAD 22209 <Continued> Orig Print D/T: S: 08/27/2021 (1403) [facility] HELENE PASTOR [address] [place] [address] PHYS: DAMIENCH.Candi - AmberAngel Hicks, [place] [address] : 1955 AGE: 66 SEX: F LOC: Thelma.ERS PHONE #: [phone] EXAM DATE: 08/27/2021 STATUS: REG ER FAX #: [phone] RAD #: D/C DT PAGE 3 Signed Report- CT ANGIO NECK 2021-08-27 14:00:00 [facility] AUGUSTROEName: HELENE PASTOR : 1955 Sex: F Patient Name: HELENE PASTOR Unit No: [id number] EXAMS: CPT CODE: [id number] CT ANGIO NECK 27671 EXAM: CT angiogram head with contrast. CT [...] hemorrhage is appreciated. No mass effect, midline shiftor hydrocephalus seen. Please refer to the previous unenhanced CT head report for additional details. CTA neck: Aortic arch: Mild atherosclerosis Brachiocephalic artery: No hemodynamically significant narrowing, or aneurysm seen. Subclavian arteries: Right: No hemodynamically significant narrowing, oraneurysm seen. Left: No hemodynamically significant narrowing, or aneurysm seen. [facility] Kurt NAME: HELENE PASTOR [address] [place] [address] PHYS: [place], [place] [address] : 1955 AGE: 66 SEX: F [facility]: [id number] LOC: TUNG PHONE #: [phone] EXAM DATE: 08/27/2021 STATUS: REG ER FAX #: [phone] RAD #: D/C DT PAGE 1 Signed Report (CONTINUED) Patient Name: HELENE PASTOR Unit No: [id number] EXAMS: CPT CODE: [id number] CT ANGIO NECK 20875 <Continued> Commoncarotid arteries: Right: No hemodynamically significant [...] is seen. IMPRESSION: Aneurysm seen arising from thesupraclinoid portion of the right ICA measuring 3.9 x 3.5 x 2.3 mm in size. No evidence of hemodynamically significant narrowing noted involving the major arteries of the anterior and posterior circulation. at 1400 Reported and signed by: Harvinder Marcelino MD CC: Angel Clark MD Dictated Date/Time: 08/27/2021 (1399) Technologist: FILIBERTO CTDI: 34.74 DLP: 1252.63 Trnscrpt: 08/27/2021 (1399) [email or web address] MILAD Hicks NAME: HELENE PASTOR[address] [place], [place] [address]vd PHYS: DAMIENCH.Candi Angel ClarkroeJosh[place] [phone] : 1955 AGE: 66 SEX: F LOC: TUNG PHONE #: [phone] EXAM DATE: 08/27/2021 STATUS: REGER FAX #: [phone] RAD #: D/C DT PAGE 2 Signed Report Patient Name: HELENE PASTOR Unit No: [id number] EXAMS: CPT CODE: [id number] CT ANGIO NECK [address]1869 <Continued> Orig Print D/T: S: 08/27/2021 (1403) TONYNegro Hicks NAME: HELENE PASTOR [address] [place] [address] Blvd PHYS: Angel Mead [place], [place] [address] : 1955 AGE: 66 SEX: F LOC: AnyiERS PHONE #: [phone] EXAM DATE: 08/27/2021 STATUS: REG ER FAX #: [phone] RAD #: D/C DT PAGE 3 Signed Report- CT HEAD/BRAIN W/O CONT 2021-08-27 13:00:00 [facility] CON[facility]EN[facility]: HELENE PASTOR : 1955 Sex: F Patient Name: HELENE PASTOR Unit No: [id number] EXAMS: CPT CODE: [id number] CT HEAD/BRAIN W/O CONT 72143 EXAMINATION: - CT HEAD/BRAIN W/O CONT COMPARISON: [...] MD Dictated Date/Time: 08/27/2021 (1300) Technologist: SHENG GALLEGO CTDI: 42.37 DLP: 739.29 Trnscrpt: 08/27/2021 (1300) [email or web address] MILAD Hicks NAME: HELENE PASTOR [address] [place] [address] PHYS: Angel Mead, [place] [address] : 1955 AGE: 66 SEX: F LOC: B.ERS PHONE #: [phone] EXAM DATE: 08/27/2021 STATUS: PRE ER FAX #: [phone] RAD #: D/C DT PAGE 1 Signed Report Patient Name: HELENE PASTOR Unit No: [id number] EXAMS: CPT CODE: [id number] CT HEAD/BRAIN W/O CONT 63769 <Continued> Orig Print D/T: S:08/27/2021 (1303) MILAD Hicks NAME: HELENE PASTOR [address] [place] [address] PHYS: Celestina MeadJam[place] [address] : 1955 AGE: 66 SEX: F LOC: B.ERS PHONE#: [phone] EXAM DATE: 08/27/2021 STATUS: PRE ER FAX #: [phone] RAD #: D/C DT PAGE 2 SignedReportTROP-I HIGH SENSITIVITY 2021-08-27 12:36:00 Test Item Value [...] URLs may vary b ymethod. COMPREHENSIVE METABOLIC [id number] 12:35:00 Test Item Value Reference Range Interpretation [...] (test code = MG Index/DL The system [employer]) generated this result transmit kane reference range [...] to interpret this result as normal/abnormal . [id number] 12:32:00 Test Item Value Reference Range Interpretation Comments ALCOHOL (test code = < 3 MG/DL 0-10 N MEDICAL ALCOHOL ALC) RESULTS. SITE W PREPPED WITH BE MECHE. <10 MG/DL ARE CONSIDERED NEGA TIVE. >400 MG/DL MAY BE FATAL.RESULTS F OR MEDICAL USE ONL Y. NOT TO BE USED FOR FORENSIC PURPOSES. CBC W/AUTO [id number] 12:17:00 Test Item Value Reference Range Interpretation [...] 0.0-0.05 N NRBC#) - XR CHEST 1 [id number] 11:47:00 [facility] CON[facility]EN[facility]: HELENE PASTOR : 1955 Sex: F FAX: Angel Worley MD [place]: E St: PRE Patient Name: HELENE PASTOR Unit No: [id number] EXAMS: CPT CODE: [id number] XR CHEST1 V 66726 EXAMINATION: - XR CHEST 1 V HISTORY: Shortness of breath COMPARISON: None. LOCATION CODE: C3 FINDINGS: Single frontal view of the chest is submitted for evaluation. The lungs are clear. The cardiac silhouette, mediastinum and pulmonary vasculature are unremarkable. The regional osseous structures are intact IMPRESSION: No acute radiographic abnormality at 1143 Reported and signed by: Galilea Coates MD CC: Angel Clark MDDictated Date/Time: 08/27/2021 (2535)Technologist: Chantal Washington Transcribed Date/Time: 08/27/2021 (5947) By: [email or web address] Orig Print D/T: S: 08/27/2021 (9124) MILAD Hicks NAME: HELENE PASTOR [address] [place] [address] PHYS: Angel Mead, [place] [address] : 1955 AGE: 66 SEX:F LOC: B.ERS PHONE #: [phone] EXAM DATE: 08/27/2021 STATUS: PRE ER FAX #: [phone] RAD NO: DC Dt: PAGE 1 Signed [...] cular assay. Negative results do not preclude OHOO-OwQ-8vzmbl tion and should not be u sed as the sole basis forp atient management deci sions. Negative result s should beconsidered in the context of a pa tient's recent exposure s,history, presence of cli nical signs and symptoms consistentwith COVID-19. Specimen comments: If not done this admissionCT ANGIOGRAM [id number] 21:31:17 1. ?5 mm aneurysm identified from [...] MCA branches areotherwise preserved. A -type left TRACK MECHANIC is seen no sizable right P-comm is identified. Theposterior cerebral and basilar arteries are otherwise unremarkable. Both PICAorigins are seen. [facility], Radiant Results Inft User - 07/05/2019 4:32 PM CDTHISTORY:Neuro deficitTECHNIQUE: CTA of the head was performed with IV contrast. MIPreconstructions were performed. COMPARISON: N one.FINDINGS:Mild atherosclerotic disease is seen in the cavernous and supraclinoid ICAsbilaterally without flow-limiting stenosis.There is a aneurysm identified from the terminal right ICA measuring 5mm(14:261). This suspected anterolaterally. The FRANK and MCA branches areotherwise preserved.A -type left TRACK MECHANIC is seen no sizable right P-comm is identified. Theposterior cerebral and basilar arteries are otherwise unremarkable.Both PICA origins are seen.IMPRESSION1. 5 mm aneurysm identified from the right terminal ICA. This is likely anincidental finding.2. No large vessel occlusion or flow-limiting stenosis is identified. Mildatherosclerotic disease is seen in the intracranial vessels.[facility] HospitalCT HEAD WO [id number] 21:21:50 No acute intracranial abnormality Mild ischemic [...] cells andvisualized paranasal air sinuses are clear. [facility], Radiant Results Inft User - 07/05/2019 4:22 [...] abnormalityMild ischemic small vessel diseaseRight carotid terminus aneurysmUnHCA Houston Healthcare MainlandCT ANGIOGRAM [id number] 21:14:27 HISTORY: Subacute dizziness, persistent/recurrent.Deficit. TECHNIQUE: Contrast- [...] neck.2. Patent vertebrals with antegrade flow confirmed. [facility] [place] [facility] HospitalTHYROID STIMULATING [id number] 20:49:00 Test Item Value Reference Range Interpretation Comments TSH (test code = See_Comment [Automated message] 0770026918) The system [employer] (formerly [employer]) generated this result transmitted ref erence range: 0.45 - 4 .70 mIU/L. The refe rence range was not u sed to interpret this result as normal/abnor mal. Lab Interpretation (test Normal code = 03619-1) [facility] [id number] 20:36:00 Test Item Value Reference Range Interpretation Comments FREE T4 (test code = 9613875545) 1.21 ng/dL 0.78-2.2 Lab Interpretation (test code = Normal 90272-7) [facility] [id number] 20:36:00 Test Item Value Reference Range Interpretation Comments FREE T3 (test code = 9145823601) 3.86 pg/mL 2.77-5.27 Lab Interpretation (test code = Normal 37882-6) [facility] [place] [facility] HospitalTroponin [id number] 20:31:00 Test Item Value Reference Range Interpretation Comments TROPONIN I (test <0.012 See_Comment [Automated code = 5538948522) message] The system which generated this result [...] ? Lab Interpretation Normal (test code = 86817-3) [facility] / [facility] - DRUG SCREEN [id number] 20:31:00 Test Item Value Reference Range Interpretation Comments BENZO U (test code = Presumptive Positive Negative A 8334416459) CHAY U (test code = Negative Negative 6591782764) AMPHET (test code = Negative Negative 4403981351) THC (test code = Negative Negative 5277595174) METHADONE (test code = Presumptive Positive Negative A 2426230640) Meth U (test code = Negative Negative 4283966567) OPIATES (test code = Negative Negative 3873223930) Cocaine Metabolite (test Negative Negative code = 3496886379) PROPOXY (test code = Negative Negative 5979695993) Tric U (test code = Negative Negative 6957546698) PCP (test code = Negative Negative 6297204059) OXYCOD (test code = Negative Negative 9516350370) PATY (test code = PATY) Urine Drug [...] testing). Lab Interpretation (test Abnormal code = 01585-7) [facility] [place] [facility] HospitalN-TERMINAL [id number] 20:28:00 Test Item Value Reference Range Interpretation Comments NT-proBNP (test code 113 pg/mL See_Comment [Autom ated = 3070658204) message] The system which generated this result transmitted reference range : <=125. The reference range was not used to interpret this result as normal/abnormal . PATY (test code = PATY) Biotin has been reported to cause a negative bias, interpret results relative to patient's use of biotin. Lab Interpretation Normal (test code = 08588-0) [facility] [place] [facility] HospitalETHANOL2020-05-05 20:20:00 Test Item Value Reference Range Interpretation Comments ALCOHOL (test code = <10 mg/dL 9761291780) PATY (test code = PATY) <10 Lahgbgcm73-075 Toxic>100 Depression of AIRLINE PILOT FLIGHT INSTRUCTOR>400 Fatalities Reported [facility] [place] [facility] HospitalBasi Metabolic Panel (NA, K, CL, CO2, GLUCOSE, BUN, CREATININE, CA)2019-07-05 20:17:00 Test Item Value Reference Range Interpretation Comments NA (test code = 138 mmol/L 135-145 4030926509) K (test code = 4.4 mmol/L 3.5-5 4595943056) CL (test code = 105 mmol/L 98-108 5615004233) CO2 TOTAL (test code = 28 mmol/L 23-31 2476908218) AGAP (test code = 2-16 6093753858) BUN (test code = 13 mg/dL 7-23 8742204978) GLUCOSE (test code = 99 mg/dL 70-110 6561526699) CREATININE (test code 0.75 mg/dL 0.5-1.04 = 9074268359) CALCIUM (test code = 9.7 mg/dL 8.6-10.6 4771083412) eGFR Calculation mL/min/1.73m2 (Non-) (test code = 3846400221) eGFR Calculation mL/min/1.73m2 () (test code = 7956858740) PATY (test code = PATY) Association of [...] or urine or abnormalities in imaging tests). [facility] [place] [facility] HospitalHepatic Function Panel (ALB, T.PRO, BILI T, BU/BC, ALT, AST, ALK PHOS)2019-07-05 20:17:00 Test Item Value Reference Range Interpretation Comments TOTAL BILI (test code = 3242375659) 0.6 mg/dL 0.1-1.1 BILI UNCON (test code = 0096358443) 0.5 mg/dL 0.1-1.1 BILI CONJ (test code = 2533839429) 0.0 mg/dL 0-0.3 T PROTEIN (test code = 9651878325) 7.4 g/dL 6.3-8.2 ALBUMIN (test code = 6128610374) 4.3 g/dL 3.5-5 ALK PHOS (test code = 6606961258) 74 U/L 34-122 ALTv (test code = 1742-6) 21 U/L 5-35 AST(SGOT) (test code = 2850071709) 40 U/L 13-40 Lab Interpretation (test code = Normal 90748-3) [facility] [place] [facility] HospitalProthrombin Time (PT) / [id number] 20:08:00 Test Item Value Reference Range Interpretation [...] tions. Lab Interpretation (test Normal code = 99600-5) [facility] [place] [facility] HospitalaPTT2020-05-05 20:06:00 Test Item Value Reference Range Interpretation Comments APTT Patient (test See_Comment [Automat ed code = 3173-2) message] The system which generated this result transmitted reference range : 23 - 38 Seconds . The reference range was not used to interpr et this result as normal/abnormal . PATY (test code = PATY) The [facility] patient population mean normal value for aPTT is 30 seconds. Lab Interpretation Normal (test code = 97630-6) [facility] [place] [facility] HospitalUrinalysis2020-05-05 20:03:00 Test Item Value Reference Range Interpretation Comments APPEARANCE (test code = Hazy Clear A 0662527311) COLOR (test code = Yellow Yellow 2552642687) PH (test code = 4.8-8.0 0996204086) SP GRAVITY (test code = 1.003-1.030 8610741696) GLU U QUAL (test code = Normal Normal 8106436697) BLOOD (test code = Negative Negative 7956249968) KETONES (test code = Negative Negative 4046673011) PROTEIN (test code = Negative Negative 2887-8) UROBILIN (test code = Normal Normal 2790424899) BILIRUBIN (test code = Negative Negative 3179953016) NITRITE (test code = Negative Negative 2602597367) LEUK SACHA (test code = 25/uL Negative A 6497860745) RBC/HPF (test code = See_Comment H [Autom ated message] 9732287151) The system [employer] (formerly [employer]) generated this result transmitted ref erence range: 0 - 3 HP F. The reference range was not used to int erpret this result as normal/abnormal . WBC/HPF (test code = See_Comment [Autom ated message] 0786324736) The system [employer] (formerly [employer]) generated this result transmitted ref erence range: 0 - 5 HP F. The reference range was not used to int erpret this result as normal/abnormal . BACTERIA (test code = Negative Negative 3510662640) SQ EPITH (test code = HPF 4012969416) YEAST BUD (test code = See_Comment H [Aut omated message] 6478984623) The system [employer] (formerly [employer]) generated this result transmitted ref erence range: <=1 HPF. The reference range was not used to int erpret this result as normal/abnormal . Lab Interpretation (test Abnormal code = 92596-6) [facility] WITH [id number] 19:53:00 Test Item Value Reference Range Interpretation Comments WBC (test code = See_Comment [Automated 6690-2) message] The sy stem which generated this result transmitted reference range : 4.30 - 11.10 10*3/?L. The reference range was not used to interpret this result as normal/abnormal . RBC (test code = See_Comment [Automated 939-8) message] The sy stem which generated this [...] RDW-SD (test code = 43.5 fL 39-49.9 81897-3) RDW-CV (test code = 12.9 % 12-15.5 788-0) PLT (test code = See_Comment [Automated 777-3) message] The sy stem which generated this result transmitted reference range : 166 - 358 10*3/ ?L. The reference r yamileth was not used to interpret this result as normal/abnormal . MPV (test code = 9.4 fL 9.5-12.9 L 08770-9) NRBC/100 WBC (test See_Comment [Automat ed code = 1156142568) message] The system which generated this result transmitted reference range : 0.0 - 10.0 /100 WBCs. The refer ence range was not u sed to interpret th is result as normal/abnormal . NRBC x10^3 (test code <0.01 See_Comment [Auto mated = 3778980087) message] The s ystem which generated this result transmitted reference range : 10*3/?L. The reference range was not used to interpret this result as normal/abnormal . GRAN MAT (NEUT) % 60.0 % (test code = 770-8) IMM GRAN % (test code 0.20 % = 7222794528) LYMPH % (test code = 27.7 % 736-9) MONO % (test code = 5.2 % 5905-5) EOS % (test code = 6.1 % 713-8) BASO % (test code = 0.8 % 706-2) GRAN MAT x10^3(ANC) 5.15 10*3/uL 1.88-7.09 (test code = 4816397540) IMM GRAN x10^3 (test <0.03 0-0.06 code = 2882102221) LYMPH x10^3 (test code 2.38 10*3/uL 1.32-3.29 = 731-0) MONO x10^3 (test code 0.45 10*3/uL 0.33-0.92 = 742-7) EOS x10^3 (test code = 0.52 10*3/uL 0.03-0.39 H 711-2) BASO x10^3 (test code 0.07 10*3/uL 0.01-0.07 = 704-7) Lab Interpretation Abnormal (test code = 96268-0) [facility] Notes Date/Time Note Provider Source 2021-08-27 13:07:00-00:00 [facility] PROVID[facility] REPORT REPORT#:[id number] REPORT STATUS: Signed DATE:08/27/21 TIME: 1307 PATIENT: HELENE PASTOR UNIT #: [id number] ROOM/BED: AGE: 66 SEX: F PCP PHYS: No Primary or Family Ph ysician SERVICE AUTHOR: Angel Clark MD * ALL edits or amendments must be made on the el Scribz/computer document * HPI-Altered Mental Status Free Text HPI Notes Free Text HPI Notes 66-year-old female presenting for altered mental status. She was pulled over because she was driving somewhat erratically. Wa s weak and like was going to lose consciousness so police called EMS. More al ert on EMS arrival but still feeling weak and she was pale diaphoretic. Compl ained of a headache. Denies any trauma does state that s he has a known aneurysm that she is having angiogram next week - was told its 5mm . Did have benzos and methadone and her car but has not been overusing them. No fevers or recent ill ness. General Initial Greet Date/Time 08/27/21 1132 Presentation Chief Complaint Confused Sudden in Onset? No Onset Occurred Today Symptom Duration Since onset Progression since Onset Unchanged Exacerbated by Nothing Relieved by Nothing Review of Systems ROS Statements All systems rev neg except as marked. Focused Review of Systems Constitutional Reports: Fatigue. Denies: Chills, Fever, Letharg y. Eyes Denies: Eye pain bilat, Redness bilat, Visual lo ss bilat. Respiratory Denies: Cough, non-productive, Cough, productive , Shortness of breath. Cardiovascular Denies: Chest pain, Syncope. GI Denies: Abdominal pain, Diarrhea, Nausea, Vomiti ng. Female Denies: Dysuria, Flank pain, Pelvic pain. Endocrine Denies: Polyuria, Weight loss. Skin Reports: Diaphoresis. Denies: Rash. Neurologic Reports: Confusion. Past Medical History - Adult Stated Complaint WEAKNESS, VOMITING, POSSIBLE IN GESTION Allergies Coded Allergies: No Known Allergies (08/27/21) Home Medications Reported Medications LISINOPRIL (ZESTRIL) 20 MG PO DAILY CARVEDILOL (COREG) 25 MG PO BID MEALS PRAVASTATIN (PRAVACHOL) 10 MG PO BEDTIME LEVOTHYROXINE (SYNTHROID) 112 MCG PO DAILY METHADONE DISPERSIBLE (METHADOSE DISPERSIBLE) 40 MG PO DAILY LORazepam (ATIVAN) 1 MG PO Q8H PRN PRN ANXIETY CLOPIDOGREL (PLAVIX) 75 MG PO DAILY MULTIVITAMIN (MULTIPLE VITAMIN) 1 TAB PO DAILY Smoking status for patients 13 years old or olde r: Unknown,if ever smoked Physical Exam Vital Signs Vital Signs First Documented: Result Date Time Pulse Ox 94 08/27 1124 B/P 169/82 08/27 1124 B/P Mean 111 08/27 1124 O2 Delivery Nasal cannula 08/27 1124 O2 Flow Rate 2 08/27 1124 Temp 98.4 08/27 1124 Pulse 80 08/27 1124 Resp 18 08/27 1124 Last Documented: Result Date Time Pulse Ox 92 08/27 1800 B/P 135/78 08/27 1800 B/P Mean 97 08/27 1800 Temp 98.9 08/27 1800 Pulse 70 08/27 1800 Resp 20 08/27 1800 O2 Delivery Nasal cannula 08/27 1609 O2 Flow Rate 4 08/27 1609 Review of Vital Signs Reviewed Focused PE General/Const General/Const Awake, Alert MS Head Head Atraumatic, Normocephalic Eyes Eyes Atraumatic, PERRL, EOMI, No scleral icteru s Ears/Nose/Throat Ears/Nose/Throat Atraumatic, Airway patent, Muc ous membranes moist, Pharynx NL MS Neck Neck Atraumatic, Supple, No meningismus, Full r yamileth of motion, No swelling, Non-tender, No midline vertebral tend, N o masses, No carotid bruit, Thyroid NL Resp/Chest Respiratory/Chest Breath sounds NL, Breath soun ds = bilat, No respiratory distress, No rales, No rhonchi, No wheezing Cardiovascular Cardiovascular Heart rate NL, Regular rhythm, H eart sounds NL, Peripheral circulation NL Abdomen/GI Abdomen/GI Soft, Non-tender, No guarding, No re bound MS Back Back Inspection NL, Non-tender, No CVA tenderne ss Skin Skin No rash, Warm, Turgor NL Text/Dict Notes Pale and diaphoretic Neurologic Neurologic Oriented X3, Sp eech NL, No motor deficits, No sensory deficits, CN II - XII intact, Cerebellar NL Psychiatric Psychiatric Affect NL, Mood NL, Not suicidal, N ot homicidal, Cognitive function NL, Thought content NL Interpretation Diagnostics Lab Results Interpretation Results Laboratory Tests 08/27/21 1201: [Embedded Image Not Available] Laboratory Tests: 08/27 1334 Serology SARS-CoV-2 Ag (Rapid) (Neg) Positive H 08/27 120 Chemistry Troponin I High Sens (0 - 45 ng/L) < 4 Toxicology Urine Opiates Screen (<300 NG/ML SCcutoff) NONE DETECTED (NEG) Urine Barbiturates (<200 NG/ML SCcutoff) NONE D ETECTED (NEG) Ur Phencyclidine Scrn (<25 NG/ML SCcutoff) NONE DETECTED (NEG) Ur Amphetamines Screen (<1000 NG/ML SCcutoff) NONE DETECTED (NEG) U Benzodiazepines Scrn (<200 NG/ML SCcutoff) NO NE DETECTED (NEG) Urine Cocaine Screen (<300 NG/ML SCcutoff) NONE DETECTED (NEG) Urine Cannabinoids (<50 NG/ML SCcutoff) NONE DE TECTED (NEG) 08/27 120 Chemistry Sodium (133 - 144 mmol/L) 134.0 Potassium (3.5 - 5.1 mmol/L) 3.8 Chloride (95 - 105 mmol/L) 103 Carbon Dioxide (21 - 32 mmol/L) 25 Anion Gap (4.0 - 15.0 GAP calc) 6.0 BUN (7 - 18 MG/DL) 15 Creatinine (0.55 - 1.30 MG/DL) 0.87 Glomerular Filtr Rate (>60 estGFR) 65 Glucose (70 - 110 MG/DL) 117 H Calcium (8.5 - 10.1 MG/DL) 8.4 L Total Bilirubin (0.00 - 1.00 MG/DL) 0.32 Direct Bilirubin (0.00 - 0.30 MG/DL) 0.11 Indirect Bilirubin (0.2 - 1.3 MG/DL) 0.21 AST (15 - 37 Unit/L) 27 ALT (12 - 78 Unit/L) 27 Total Alk Phosphatase (45 - 117 Unit/L) 85 Total Protein (6.4 - 8.2 G/DL) 7.3 Albumin (3.4 - 5.0 G/DL) 3.5 Albumin/Globulin Ratio (1.2 - 2.2 RATIO) 0.9 L Specimen Appearance (1 NORMAL Index/DL) 1 ANITRA L <2 MG Specimen Hemolysis (1 NORMAL Index/DL) 2 TRACE 10-25 MG Hematology WBC (4.1 - 12.1 K/mm3) 7.6 RBC (3.8 - 5.5 M/mm3) 4.18 Hgb (10.6 - 15.8 G/DL) 13.0 Hct (31.8 - 47.4 %) 39.1 MCV (80.1 - 101.1 fL) 93.5 MCH (25.3 - 35.3 pg) 31.1 MCHC (32.7 - 35.1 G/DL) 33.2 RDW (12.2 - 16.4 %) 12.8 Plt Count (155 - 337 K/mm3) 235 MPV (6.8 - 11.2 fL) 9.4 Gran % (37.8 - 82.6 %) 89.4 H Lymph % (Auto) (14.1 - 45.4 %) 3.1 L [place] % (Auto) (2.5 - 11.7 %) 5.4 Eos % (Auto) (0.0 - 6.2 %) 0.9 Baso % (Auto) (0.0 - 2.1 %) 0.5 Gran # (2.0 - 13.7 k/mm3) 6.81 Lymph # (Auto) (0.6 - 3.8 K/mm3) 0.24 L [place] # (Auto) (0.11 - 0.59 K/mm3) 0.41 Eos # (Auto) (0.0 - 0.4 K/mm3) 0.07 Baso # (Auto) (0.0 - 0.1 K/mm3) 0.04 Immature Gran % (0.0 - 2.0 %) 0.7 Nucleated RBC % (0.0 - 1.0 /100WBC%) 0.0 Nucleated RBCs # (0.0 - 0.05 K/mm3) 0.00 Toxicology Ethyl Alcohol (0 - 10 MG/DL) < 3 Recent Impressions: RADIOLOGY - XR CHEST 1 V 08/27 1141 Report Impression - Status: SIGNED Entered: 08/27/2021 1150 IMPRESSION: No acute radiographic abnormality Impression By: Luz Maria Coates MD CAT SCAN - CT HEAD/BRAIN W/O CONT 08/27 1252 Report Impression - Status: SIGNED Entered: 08/27/2021 1303 IMPRESSION: No acute intracranial abnormality Chronic white matter changes Impression By: Luz Maria Coates MD CAT SCAN - CT ANGIO NECK 08/27 1331 Report Impression - Status: SIGNED Entered: 08/27/2021 1403 IMPRESSION: 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 No evidence of hemodynamically significant narro wing noted involving the major arteries of the anterior and posterior circulation. 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 No evidence of hemodynamically significant narro wing noted involving the major arteries of the anterior and posterior circulation. Impression By: Omayra Marcelino MD Re-Evaluation MDM Free Text MDM Notes Free Text MDM Notes After Decadron and MDI albut bunny inhaler her oxygen saturations 92% on room air. Not labored breathing but does look fatigued. D iscussed admission to the hospital for further respira tory care but says she cannot stay right now she has to get home and check on her dogs. I did recomme nd that she get a pulse oximeter and check her oxyge n saturation frequently and return if its less than 90% and will prescribe steroids and inhaler Patient did have aneurysm bu t at the same size (4m) that she says she knows she has and is scheduled for angiogram outpatient al ready ED Course Medication(s) Ordered Medication(s) Ordered: Autonomic Drugs Sig/Edward Start time Last Medication Dose Route Stop Time Status Admin Albuterol Sulfate 2 PUFF STAT STA 08/27 1531 DC 08/27 INH 08/27 1532 1607 Albuterol Sulfate 2.5 MG STAT STA 08/27 1442 DC INH 08/27 1443 Diagnostic Agents Sig/Edward Start time Last Medication Dose Route Stop Time Status Admin Iopamidol 95 ML .STK-MED ONE 08/27 1351 DC 08/01 8 IV 08/27 1352 1351 Electrolytic, Caloric, And Dar Sig/Edward Start time Last Medication Dose Route Stop Time Status Admin Sodium Chloride 1,000 ML X1ED STA 08/27 1225 AC 08/27 IV 10/08 0424 1309 Eye, Ear, Nose And Throat (Een Sig/Edward Start time Last Medication Dose Route Stop Time Status Admin Dexamethasone Sodium 6 MG X1ED STA 08/27 1439 D C 08/27 Phosphate IV 08/27 1440 1542 Gastrointestinal Drugs Sig/Edward Start time Last Medication Dose Route Stop Time Status Admin Metoclopramide HCl 10 MG X1ED STA 08/27 1224 DC 08/27 IV 08/27 1225 1309 Patient Discharge Departure Vital Signs/Condition Vital Signs First Documented: Result Date Time Pulse Ox 94 08/27 1124 B/P 169/82 08/27 1124 B/P Mean 111 08/27 1124 O2 Delivery Nasal cannula 08/27 1124 O2 Flow Rate 2 08/27 1124 Temp 98.4 08/27 1124 Pulse 80 08/27 1124 Resp 18 08/27 1124 Last Documented: Result Date Time Pulse Ox 92 08/27 1800 B/P 135/78 08/27 1800 B/P Mean 97 08/27 1800 Temp 98.9 08/27 1800 Pulse 70 08/27 1800 Resp 20 08/27 1800 O2 Delivery Nasal cannula 08/27 1609 O2 Flow Rate 4 08/27 1609 All vital signs available at the time of this en try have been reviewed. Clinical Impression Clinical Impression Primary Impression: COVID-19 Disposition Decision Discharge )( Discharged to Home Yes )( Time 1619 )( Date 08/27/21 Discharge/Care Plan (Auto) Prescriptions Current Visit Scripts dexAMETHasone 6 MG PO DAILY dexAMETHasone 6 MG PO DAILY #5 TABS ALBUTEROL (VENTOLIN HFA 90 MCG/ACT 18 GM) 1 PUFF INH RTQ4H ALBUTEROL (VENTOLIN HFA 90 MCG/ACT 18 GM) 1 PUF F INH RTQ4H #18 GM Patient Instructions COVID-19 [facility] Care Ref[facility]: [facility] [place] [address] at [address] [facility] [place] #:[id number] END OF REPORT 2020-06-08 09:49:00-00:00 [id number] [facility] and [place] [address] [place] [address] PATIENT NAME: HELENE PASTOR ADMIT DATE: 06/08/20 ACCOUNT NO: [id number] DISCHARGE DATE: 1 ROOM NO: REPORT TYPE: ENDOSCOPY REPORT DATE OF : AGE: 64 SEX: F ADMITTING PHYSICIAN: ATTENDING PHYSICIAN:Shon Tejada MD [facility] Patient Name: Helene Pastor Procedure Date: 06/08/2020 9 :49 AM Date of : 1955 Admit Type: Outpatient Age: 64 Gender: Female Attending MD: Shon Tejada MD Procedure: Colonoscopy Indications: Screening for colorectal malignant neoplasm Providers: Shon Tejada MD (Doctor) Referring MD: Requesting Provider: Medicines: General Anesthesia Procedure: Pre-Anesthesia Assessment: - Prior to the procedure, a History and Physica l was performed, and patient medications and allergie s were reviewed. The patient's tolerance of previous anesthesia was also reviewed. The risks and rommel efits of the procedure and the sedation options and risk s were discussed with the patient. All questions were answered, and informed consent was obtained. Pr ior Anticoagulants: The patient has taken no previ ous anticoagulant or antiplatelet agents. ASA Grade Assessment: III - A patient with severe systemi c disease. After reviewing the risks and benefits , the patient was deemed in satisfactory condition to undergo the procedure. After I obtained informed consent, the scope wa s passed under direct vision. Throughout the procedure, the patient's blood pressure, pulse, and oxygen sa turations were monitored continuously. The [id number]-[id number] Pedi Colonoscope was introduced through the maura s and advanced to the cecum, identified by appendicea l orifice and ileocecal valve. The colonoscopy wa s performed without difficulty. The patient tole rated the procedure well. The quality of the bowel prepar ation was good. Findings: The perianal and digital rectal examinations we re normal. Pertinent PATIENT NAME: HELENE PASTOR [id number] negatives include normal sphincter tone. Non-bleeding internal hemorrhoids were found du ring retroflexion. The hemorrhoids were Grade I (internal hemorrhoids that do not prolapse). A piece of gum was removed with biopsy forceps. Complications: No immediate complications. Estimated Blood Loss: Estimated blood loss: none . Impression: - Non-bleeding internal hemorrhoids. - No specimens collected. Recommendation: - Repeat colonoscopy in 10 years for surveillance. Procedure Code(s): --- Professional --- 02480, Colonoscopy, flexible; diagnostic, inclu ding collection of specimen(s) by brushing or washin g, when performed (separate procedure) CPT copyright 2018 [employer]. All rights reserved. The codes documented in this report are prelimin joshua and upon master cook review may be revised to meet current compliance requiremen ts. Shon Tejada MD Shon Tejada MD 06/09/2020 10:43:51 AM This report has been signed electronically. Number of Addenda: 0 Note Initiated On: 06/08/2020 9:49 AM Provation {[id number]}.pdf ProVation FT PDF at 1044 PATIENT NAME: HELENE PASTOR 070"
[2022-09-26 20:28] LABS: Absolute Lymphocytes (CBC) 2.2 K/uL (0.7-4.9); Lymphocytes % 26.8 % (15.3-44.8); MCV 93.3 fL (80-100); MPV 7.2 fL (7.6-11.3); RBC Red Blood Cell Count 3.75 M/uL (3.86-4.86)
--- NOTE | 2022-09-26 20:36 | RAD REPORT ---
EXAM DESCRIPTION: CT - Ct Stroke Brain Wo Cont - 09/26/2022 8:26 pm CLINICAL HISTORY: Numbness COMPARISON: March 2022 TECHNIQUE: Computed axial tomography of the head was obtained. All CT scans are performed using dose optimization technique as appropriate and may include automated exposure control or mA/KV adjustment according to patient size. FINDINGS: An intracranial bleed is not seen . The ventricles are normal in caliber. No extra-axial fluid collection is noted. Mild to moderate low-density within periventricular, deep and subcortical white matter likely ischemi c changes secondary to small vessel disease Fluid within the sinuses/ mastoids is not seen. IMPRESSION: No acute intracranial abnormality is seen. If patient's symptoms persist MRI of the bra in would be recommended Dr Mccullough the emergency room was notified at 8:32 p.m. September 26, 2022
[2022-09-26 20:39] LABS: Protime INR 1.05
[2022-09-26 20:47] LABS: ALT/SGPT 30 U/L (13-56); AST/SGOT 23 U/L (15-37); Albumin 3.7 g/dL (3.4-5.0); Alkaline Phosphatase 64 U/L (45-117); BUN Blood Urea Nitrogen 22 mg/dL (7-18); Bicarbonate 31 mEq/L (21-32); Bilirubin Total 0.5 mg/dL (0.2-1.0); Glomerular Filtration Rate 39 ml/min (=/>90); Glucose Level 94 mg/dL (74-106); Magnesium 2.2 mg/dL (1.6-2.4); Potassium 2.8 mEq/L (3.5-5.1); Sodium Level 138 mEq/L (136-145); Troponin High Sensitivity 7.8 pg/mL (<58.9)
--- NOTE | 2022-09-26 20:47 | RAD REPORT ---
EXAM DESCRIPTION: Shahbaz Angio09/26/2022 8:27 pm CLINICAL HISTORY: Numbness COMPARISON: None TECHNIQUE: 50 cc Isovue 370 was administered intravenously. 3D MIP reconstruction performed All CT scans are performed using dose optimization technique as appropriate and may include automated exposure control or mA/KV adjustment according to patient size. FINDINGS: Mild plaque is present within common carotid, internal carotid and external carotid arter ies bilaterally Left vertebral artery is hypoplastic. No significant stenosis. No dissection. IMPRESSION: Mild plaque within the carotid arteries NASCET criteria used. Mild 0-49% stenosis Moderate 50-69% stenosis Severe 70-99% stenosis
[2022-09-26 20:48] LABS: Bilirubin Direct < 0.1 mg/dL (0-0.2); Bilirubin Indirect, Calculated ND mg/dL (0.2-0.8)
--- NOTE | 2022-09-26 20:55 | RAD REPORT ---
EXAM DESCRIPTION: CTHead angio09/26/2022 8:27 pm CLINICAL HISTORY: Numbness COMPARISON: None TECHNIQUE: 100 cc Isovue [address] angiogram of the head was obtained. 3D MIPS reconstruction performed. All CT scans are performed using dose optimization technique as appropriate and may include automated exposure control or mA/KV adjustment according to patient size. FINDINGS: A 4 millimeter aneurysm arising anteriorly off very distal aspect of right internal caroti d artery Mild plaque in internal carotid arteries origin left posterior cerebral artery The basilar, anterior cerebral, middle cerebral and posterior cerebral arteries do not demonstrate a stenosis. No large vessel occlusion IMPRESSION: 4 millimeter aneurysm very distal aspect right internal carotid artery
--- NOTE | 2022-09-26 21:12 | RAD REPORT ---
EXAM DESCRIPTION: Dequan Single View09/26/2022 8:54 pm CLINICAL HISTORY: Numbness. Hypertension COMPARISON: March 2022 FINDINGS: The lungs appear clear of acute infiltrate. The heart is normal size IMPRESSION: No acute abnormalities displayed
[2022-09-26] MEDS ORDERED: METOCLOPRAMIDE 10 MG/2mL INJ ONE (21:38)
[2022-09-26] MEDS ORDERED: DIPHENHYDRAMINE 50 MG/ML VIAL ONE (21:39)
[2022-09-26] MEDS ORDERED: NA CHLORIDE 0.9% 100 ML ONE (21:39)
[2022-09-26] MEDS ORDERED: Magnesium Sulfate 2gm IVPB 2 G/50 ML BAG IV ONE (21:39)
--- NOTE | 2022-09-26 22:48 | EDPHYS ---
Physician Documentation [facility] Name: Helene Pastor Age: 67 yrs Sex: Female : 1955 Arrival Date: 09/26/2022 Time: 19:50 Bed 2 Private MD: ED Physician Stone Turk HPI: 09/27 01:28 This 67 yrs old Female presents to ER via Ambulatory with complaints of Numbness Of rt Face, Headache. 01:28 Patient presents to the ED with a right-sided numbness, weakness starting last night. rt He subsequently developed a headache today. Patient states that also today, she developed vaginal bleeding. She is postmenopausal. The patient denies other acute complaints at this time. Symptoms are aching nature, nonradiating, moderate severity, no other aggravating or alleviating factors.. Historical: - Allergies: 09/26 20:10 No Known Allergies; vc1 - Home Meds: 20:10 None [Active]; vc1 - PMHx: 20:10 brain anuerysm; Hyperlipidemia; Hypertension; Hypothyroidism; vc1 - PSHx: 20:10 section; vc1 - Immunization history:: Client reports receiving the 2nd dose of the Covid vaccine. - Social history:: Smoking status: Reported history of juuling and/or vaping. - Family history:: not pertinent. ROS: 09/27 01:28 Constitutional: Negative for fever, chills, and weight loss, Cardiovascular: Negative rt for chest pain, palpitations, and edema, Respiratory: Negative for shortness of breath, cough, wheezing, and pleuritic chest pain, Abdomen/GI: Negative for abdominal pain, nausea, vomiting, diarrhea, and constipation, MS/Extremity: Negative for injury and deformity, Skin: Negative for injury, rash, and discoloration, Psych: Negative for depression, anxiety, suicide ideation, homicidal ideation, and hallucinations. Neuro: Positive for headache, numbness, weakness. Exam: : Radiologist reports: No acute finding rt : Chest/axilla: Normal chest wall appearance and motion. Nontender with no deformity. No lesions are appreciated. Cardiovascular: Regular rate and rhythm with a normal S1 and S2. No gallops, murmurs, or rubs. Normal PMI, no JVD. No pulse deficits. Respiratory: Lungs have equal breath sounds bilaterally, clear to auscultation and percussion. No rales, rhonchi or wheezes noted. No increased work of breathing, no retractions or nasal flaring. Abdomen/GI: Soft, non-tender, with normal bowel sounds. No distension or tympany. No guarding or rebound. No evidence of tenderness throughout. 01:28 Neuro: Right-sided sensory deficits, sensation otherwise intact, drift in right upper extremity, no drift in right lower extremity. No facial droop, speech normal. 01:32 ECG was reviewed by the Attending Physician. rt Vital Signs: 09/26 20:08 BP 133 / 68; Pulse 65; Resp 13; Pulse Ox 97% ; Weight 73.94 kg; Height 5 ft. 3 in. ; vc1 Pain 0/10; 21:25 BP 120 / 64; Pulse 58; Resp 19; Temp 98.2(O); Pulse Ox 93% ; kd3 23:57 BP 114 / 64; Pulse 56; Resp 19; Pulse Ox 95% ; kd3 20:08 Body Mass Index 28.87 (73.94 kg, 160.02 cm) vc1 20:08 Pain Scale: Adult vc1 MDM: 20:08 Patient medically screened. rt 09/27 01:28 Differential diagnosis: CVA, TIA, complex. Data reviewed: vital signs, nurses notes, rt lab test result(s), EKG, radiologic studies. Consideration of Admission/Observation Escalation of care including admission/observation considered. Inform patient that CVA is very high on the differential, is not completely ruled out with CT scan, strongly recommended that the patient stay for further restratification. Patient states that her symptoms have resolved, strongly does not wish to stay in the hospital. She does have decision-making capacity understands the risk of not getting further stroke work-up. She agrees to follow-up with neurology as an outpatient. She was informed that she may return at any time she changes her mind or has worsening symptoms. She verbalized understanding.. I considered the following discharge prescriptions or medication management in the emergency department Medications were administered in the Emergency Department. See MAR. Independent interpretation of the following test(s) in the Emergency Department CT Scan: My interpretation is No hemorrhage seen on interpretation of the CT scan image. Care significantly affected by the following chronic conditions: Hypertension. Response to treatment: the patient's symptoms have markedly improved after treatment. ED course: Patient complains of postmenopausal dysfunctional uterine bleeding. She does not require blood transfusion. I informed patient this is a outpatient work-up, patient instructed to have REPORTING LEAD follow-up for possible endometrial biopsy to rule out malignancy.. 09/26 20:09 Order name: Basic Metabolic Panel; Complete Time: 21:21 rt 09/26 20:09 Order name: CBC with Diff; Complete Time: 21: rt 09/26 20:09 Order name: Hepatic Function; Complete Time: 21: rt 09/26 20:09 Order name: High Sensitivity Troponin; Complete Time: 21: rt 09/26 20:09 Order name: Magnesium; Complete Time: 21: rt 09/26 20:09 Order name: Protime (+inr); Complete Time: : rt 09/26 20:09 Order name: Ptt, Activated; Complete Time: : rt 09/26 20:43 Order name: Glucose, Ancillary Testing; Complete Time: 21:21 EDMS 09/26 20:09 Order name: CT Stroke Brain w/o Contrast; Complete Time: 21: rt 09/26 20:09 Order name: Stroke CXR 1 View; Complete Time: 21: rt 09/26 20:09 Order name: CT Head Angio; Complete Time: : rt 09/26 20:09 Order name: CT Neck Angio; Complete Time: 21: rt 09/26 20:09 Order name: EKG; Complete Time: 20:10 rt 09/26 20:09 Order name: Accucheck; Complete Time: : rt 09/26 20:09 Order name: Cardiac monitoring; Complete Time: : rt 09/26 20:09 Order name: EKG - Nurse/Tech; Complete Time: : rt 09/26 20:09 Order name: IV Saline Lock; Complete Time: : rt 09/26 20:09 Order name: Labs collected and sent; Complete Time: : rt 09/26 20:09 Order name: NPO; Complete Time: : rt 09/26 20:09 Order name: O2 Per Protocol; Complete Time: 21: rt 09/26 20:09 Order name: O2 Sat Monitoring; Complete Time: 21: rt 09/26 20:09 Order name: Stroke Swallow Screen; Complete Time: 21:37 rt EC:32 Rate is 63 beats/min. Rhythm is regular, Normal Sinus Rhythm with No ectopy. QRS [place] rt is Normal. [place] interval is normal. QRS interval is normal. QT interval is normal. No Q waves. Clinical impression: NSR w/ Non-specific ST/T Changes. Administered Medications: 09/26 21:36 Drug: metoCLOPramide IVP 10 mg Route: IVP; Site: right antecubital; kd3 23:57 Follow up: Response: No adverse reaction kd3 21:36 Drug: diphenhydrAMINE IVP 25 mg Route: IVP; Site: right antecubital; kd3 23:57 Follow up: Response: No adverse reaction kd3 21:48 Drug: Magnesium Sulfate IVPB 2 grams Route: IVPB; Infused Over: 1 hrs; Site: right kd3 antecubital; 23:57 Follow up: IV Status: Completed infusion kd3 Disposition Summary: 09/26/22 22:47 Discharge Ordered Location: Home rt Problem: new rt Symptoms: are resolved rt Condition: Undetermined rt Diagnosis - Headache rt - Right-sided numbness rt Followup: rt - With: Ba Mtz MD - When: 5 - 6 days - Reason: Discharge Instructions: - Discharge Summary Sheet rt - General Headache Without Cause rt - Transient Ischemic Attack rt - Hypokalemia rt Forms: - Medication Reconciliation Form rt - Thank You Letter rt - Antibiotic Education rt - Prescription Opioid Use rt - Patient Portal Instructions rt Prescriptions: - Potassium Chloride 20 meq Oral Packet - take 1 packet by ORAL route once daily 1 packet in 6 (six) ounces of water or rt juice; Take after meal; 10 packet; Refills: 0, Product Selection Permitted Signatures: Dispatcher [employer] Emily Lynn RN RN kd3 Madonna Monge RN RN vc1 Stone Turk MD MD rt
--- NOTE | 2022-09-26 22:48 | ER ---
Nurse's Notes [facility] Name: Helene Pastor Age: 67 yrs Sex: Female : 1955 Arrival Date: 09/26/2022 Time: 19:50 Bed 2 Private MD: Diagnosis: Headache;Right-sided numbness Presentation: 09/26 20:08 Chief complaint: Patient states: I started having having numbness to the right side of vc1 my face and weakness to my right arm last night. Then my vision became double. Coronavirus screen: Vaccine status: Patient reports receiving the 2nd dose of the covid vaccine. Moderna. Ebola Screen: Patient negative for fever greater than or equal to 101.5 degrees Fahrenheit, and additional compatible Ebola Virus Disease symptoms Patient denies exposure to infectious person. Patient denies travel to an Ebola-affected area in the 21 days before illness onset. No symptoms or risks identified at this time. Initial Sepsis Screen: Does the patient meet any 2 criteria? No. Patient's initial sepsis screen is negative. Does the patient have a suspected source of infection? No. Patient's initial sepsis screen is negative. Risk Assessment: Do you want to hurt yourself or someone else? Patient reports no desire to harm self or others. Onset of symptoms was September 25, 2022. 20:08 Method Of Arrival: Ambulatory vc1 20:08 Acuity: PEPE 2 vc1 Triage Assessment: 20:11 General: Appears in no apparent distress. uncomfortable, Behavior is cooperative. Pain: vc1 Denies pain. EENT:. EENT: No deficits noted. No signs and/or symptoms were reported regarding the EENT system. Neuro: Level of Consciousness is awake, alert, obeys commands, Oriented to person, place, time, situation, Appropriate for age [facility] are weak on right Weakness in right arm(s) Gait is steady, Speech is normal, Facial droop on right, Pupils are PERRLA. Cardiovascular: No deficits noted. Respiratory: Airway is patent Respiratory effort is even, unlabored, Respiratory pattern is regular, symmetrical. GI: No deficits noted. No signs and/or symptoms were reported involving the gastrointestinal system. : No deficits noted. No signs and/or symptoms were reported regarding the genitourinary system. Derm: No deficits noted. No signs and/or symptoms reported regarding the dermatologic system. Musculoskeletal: No deficits noted. No signs and/or symptoms reported regarding the musculoskeletal system. 21:23 Headache History: Denies prior headaches. Pain: Pain currently is 8 out of 10 on a pain kd3 scale. Pain began gradually, Also complains of nausea. Historical: - Allergies: 20:10 No Known Allergies; vc1 - Home Meds: 20:10 None [Active]; vc1 - PMHx: 20:10 brain anuerysm; Hyperlipidemia; Hypertension; Hypothyroidism; vc1 - PSHx: 20:10 section; vc1 - Immunization history:: Client reports receiving the 2nd dose of the Covid vaccine. - Social history:: Smoking status: Reported history of juuling and/or vaping. - Family history:: not pertinent. Screenin:[address] [facility] ED Fall Risk Assessment (Adult) History of falling in the last 3 months, vc1 including since admission No falls in past 3 months (0 pts) Confusion or Disorientation No (0 pts) Intoxicated or Sedated No (0 pts) Impaired Gait No (0 pts) Mobility Assist Device Used No (0 pt) Altered Elimination No (0 pt) Score/Fall Risk Level 0 - 2 = Low Risk Oriented to surroundings, Maintained a safe environment, Educated pt \T\ family on fall prevention, incl call for assistance when getting out of bed. Abuse screen: Denies threats or abuse. Nutritional screening: No deficits noted. Tuberculosis screening: No symptoms or risk factors identified. 21:38 Lamar Swallow Protocol Exclusion Criteria: Brief Cognitive Screen What is your name? kd3 Normal, Where are you right now? Normal, What year is it? Normal. Oral Mechanism Examination Facial Symmetry: Normal, Motion: Normal, Lip Closure: Normal, Oral Mechanism Result: Normal. 3 oz Water Swallow Challenge: Pt able to drink all water without stopping, coughing, choking or throat clearing: Yes Result: PASS Notified: Stone Turk MD. Assessment: 20:06 General: code stroke . kd3 20:08 General: Appears uncomfortable, Behavior is calm, cooperative. kd3 20:08 Pain: Complains of pain in headache. Neuro: Level of Consciousness is awake, alert, kd3 obeys commands, Oriented to person, place, time, situation, [facility] are weak on right Weakness in right arm(s) Facial droop on right. Cardiovascular: Patient's skin is warm and dry. 20:09 General: This RN accompanied the patient to CT, Started IV in CT room and sent labs . kd3 20:18 General: Labs sent . kd3 20:46 General: EKG COMPLETE . kd3 23:49 Reassessment: Patient appears in no apparent distress at this time. Patient and/or jb4 family updated on plan of care and expected duration. Pain level reassessed. Patient is alert, oriented x 3, equal unlabored respirations, skin warm/dry/pink. Pt verbalized understanding of d/c and follow up sintructions. Vital Signs: 20:08 BP 133 / 68; Pulse 65; Resp 13; Pulse Ox 97% ; Weight 73.94 kg; Height 5 ft. 3 in. ; vc1 Pain 0/10; 21:25 BP 120 / 64; Pulse 58; Resp 19; Temp 98.2(O); Pulse Ox 93% ; kd3 23:57 BP 114 / 64; Pulse 56; Resp 19; Pulse Ox 95% ; kd3 20:08 Body Mass Index 28.87 (73.94 kg, 160.02 cm) vc1 20:08 Pain Scale: Adult vc1 ED Course: 19:52 Patient arrived in ED. ag3 20:00 Stone Turk MD is Attending Physician. rt 20:10 Triage completed. vc1 20:10 Arm band placed on right wrist. vc1 20:12 Inserted saline lock: 20 gauge in right antecubital area, using aseptic technique. kd3 Blood collected. 20:28 CT Stroke Brain w/o Contrast In Process Unspecified. EDMS 20:28 CT Head Angio In Process Unspecified. EDMS 20:28 CT Neck Angio In Process Unspecified. EDMS 20:33 Emily Connelly, RN is Primary Nurse. kd3 20:45 Radiology exam delayed due to nurse in room. az 20:56 Stroke CXR 1 View In Process Unspecified. EDMS 22:47 Ba Mtz MD is Referral Physician. rt 23:56 No provider procedures requiring assistance completed. IV discontinued, intact, kd3 bleeding controlled, No redness/swelling at site. Pressure dressing applied. 23:57 Patient has correct armband on for positive identification. kd3 23:57 Provided Education on: . kd3 Administered Medications: 21:36 Drug: metoCLOPramide IVP 10 mg Route: IVP; Site: right antecubital; kd3 23:57 Follow up: Response: No adverse reaction kd3 21:36 Drug: diphenhydrAMINE IVP 25 mg Route: IVP; Site: right antecubital; kd3 23:57 Follow up: Response: No adverse reaction kd3 21:48 Drug: Magnesium Sulfate IVPB 2 grams Route: IVPB; Infused Over: 1 hrs; Site: right kd3 antecubital; 23:57 Follow up: IV Status: Completed infusion kd3 Medication: 21:24 VIS not applicable for this client. kd3 Outcome: 22:47 Discharge ordered by . rt 23:56 Discharged to home ambulatory. kd3 23:56 Condition: stable 23:56 Discharge instructions given to patient, Instructed on discharge instructions, follow up and referral plans. Demonstrated understanding of instructions, follow-up care, medications. 23:58 Patient left the ED. kd3 Signatures: Dispatcher [employer] EDMS Edi Hobson RN RN jb4 Nazanin Lanier Alice 3 Emily Connelly RN RN kd3 Madonna Monge RN RN vc1 Stone Turk MD MD rt
[2022-09-27 00:49] VITALS: TEMP 98.2
[2022-09-27 00:50] VITALS: BP 114/64; O2SAT 95
--- NOTE | 2022-09-28 13:14 | EKG ---
Test Date: 2022-09-26 Test Time: 20:44:45 Communications Professor: TK MEASUREMENT RESULTS: Intervals: Rate: 63 PA: 192 QRSD: 80 QT: 458 QTc: 468 Mazon: P: 73 PA: 192 QRS: 72 T: 83 INTERPRETIVE STATEMENTS: Normal sinus rhythm Nonspecific T wave abnormality Abnormal ECG Compared to ECG 09/08/2018 16:00:29 T-wave abnormality now present ST (T wave) deviation no longer present Electronically Signed On 09-28-22 13:11:48 CDT by Luiz Deal
== END 2022-09-26 23:58 | disposition home or self-care (01) ==
LOC: ER 19:50
DX: R51.9 Headache, unspecified (principal); R20.0 Anesthesia of skin; I10 Essential (primary) hypertension; Z86.79 Personal history of other diseases of the circulatory system
CPT/HCPCS: 96365; 93005; 85025; 80048; 36415; 83735; 85610; 82947; 80076; 85730; 84484; 70496; 70498; 70450; 71045; 96375; 99284; 96366; Q9967; J3475; J2765; J1200

== ENCOUNTER 2023-10-14 05:56 | Day surgery (SDC) | payer OTHER ==
[2023-10-13 15:57] LABS: Absolute Basophils 0.1 K/uL (0-0.5); Absolute Eosinophils 0.5 K/uL (0-0.5); Absolute Lymphocytes (CBC) 2.5 K/uL (0.7-4.9); Absolute Monocytes 0.5 K/uL (0.1-1.3); Absolute Neutrophil 5.7 K/uL (1.8-8.0); Basophils % 0.8 % (0-1.3); Eosinophils % 5.7 % (0-4.4); Hematocrit 36.7 % (36.0-45.0); Hemoglobin 12.2 g/dL (12.0-15.0); Lymphocytes % 26.8 % (15.3-44.8); MCH 30.7 pg (27.0-35.0); MCHC 33.3 g/dL (32.0-36.0); MCV 92.1 fL (80-100); MPV 7.9 fL (7.6-11.3); Monocytes % 5.6 % (3.3-12.3); Neutrophils % 61.1 % (41.7-73.7); Platelets 292 thou/uL (152-406); RBC Red Blood Cell Count 3.98 M/uL (3.86-4.86); Red Cell Distribution Width 14.3 % (12.1-15.2)
[2023-10-13 16:01] LABS: PT Prothrombin Time 10.8 SECONDS (9.4-12.5); PTT, Activated Partial Thromb 29.2 SECONDS (24.3-36.9); Protime INR 0.96
[2023-10-13 16:11] LABS: Anion Gap 5.6 mEq/L (5.0-15.0); Potassium 3.6 mEq/L (3.5-5.1)
--- NOTE | 2023-10-13 22:11 | RAD REPORT ---
EXAM DESCRIPTION: RAD - Chest Pa And Lat (2 Views) - 10/13/2023 3:39 pm CLINICAL HISTORY: Pre op pending breast lumpectomy. Hypertension COMPARISON: Chest Single View dated 09/26/2022; Chest Single View dated 03/06/2022; Chest Single View d ated 09/08/2018; CHEST SINGLE VIEW dated 05/19/2014 TECHNIQUE: PA and lateral views of the chest were obtained. FINDINGS: The lungs are clear. Heart size is normal and central vasculature is within normal limits. No pleural effusion or pneumothorax seen. No acute bony finding noted. IMPRESSION: No acute cardiopulmonary process.
[2023-10-14] MEDS: Ringers Lactate 1,000 ML IV ONE (06:30)
[2023-10-14] MEDS ORDERED: ONDANSETRON 4 MG/2 ML VIAL ONE (07:06)
[2023-10-14] MEDS ORDERED: propofoL 200 MG/20 ML VIAL IV ONE (07:06)
[2023-10-14] MEDS ORDERED: LIDOCAINE 1% MPF 5 ML VIAL ONE (07:06)
[2023-10-14] MEDS ORDERED: MIDAZOLAM HCL 2 MG/2 ML INJ ONE (07:06)
[2023-10-14] MEDS ORDERED: FENTANYL CITR 100 MCG/2 ML ONE ×2 (07:06→10:59)
[2023-10-14] MEDS ORDERED: ROCURONIUM 50 MG/5 ML VIAL IV ONE (07:06)
[2023-10-14] MEDS ORDERED: KETOROLAC 30 MG/ML INJ ONE (07:06)
[2023-10-14] MEDS ORDERED: CEFAZOLIN SODIUM 1 GM/VIAL ONE (10:31)
[2023-10-14] MEDS: METHYLENE BLUE 1% 10 ML VIAL ONE (10:32)
[2023-10-14] MEDS ORDERED: EPHEDRINE SULF 50 MG/ML VIAL ONE (10:34)
[2023-10-14] MEDS ORDERED: dexAMETHasone 4 MG/ML VIAL ONE (12:01)
--- NOTE | 2023-10-14 12:06 | RAD REPORT ---
EXAM DESCRIPTION: US Surgical Specimen CLINICAL HISTORY: F/U NEEDLE LOC COMPARISON: Brst,Preop NL Wire Init w/Guid dated 10/14/2023 TECHNIQUE: Sonographic images and cine loops of the right breast surgical specimen were obtained. FINDINGS: The right breast mass in question, with a component of the localization wire, are present within the specimen. IMPRESSION: Presence of the right breast mass in question within the specimen.
[2023-10-14] MEDS ORDERED: Mastisol Adhesive Liq ONE (12:22)
[2023-10-14] MEDS: HYDROMORPHONE HCL 1 MG/ML INJ ONE ×2 (12:49→12:59)
[2023-10-14] MEDS: FENTANYL CITR 100 MCG/2 ML ONE (13:15)
[2023-10-14] MEDS ORDERED: MEPERIDINE HCL 25 MG/ML SYR ONE (13:23)
[2023-10-14] MEDS: KETOROLAC 30 MG/ML INJ ONE (13:26)
--- NOTE | 2023-10-14 13:29 | RAD REPORT ---
EXAM DESCRIPTION: US - Brst,Preop NL Wire Init w/Guid - 10/14/2023 8:32 am CLINICAL HISTORY: Right breast mass FINDINGS: Informed consent was obtained following discussion of the risks and benefits with the cecy ent. Time-out procedure was performed. The skin, and subcutaneous tissues as well as the breast tissue surrounding the area of concern were anesthetized utilizing 1% lidocaine. Under sonographic guidance a Kopan's 7 cm hook wire was placed into the right upper outer quadrant 2. 4 cm mass. The wire was deployed. Following removal of the needle scanning confirmed tracking of the wire into the mass. The patient then left the department for the surgical dey. IMPRESSION: Ultrasound-guided needle wire localization of a right breast mass
[2023-10-14 13:41] VITALS: TEMP 97
--- NOTE | 2023-10-14 13:56 | RAD REPORT ---
EXAM DESCRIPTION: NM - Lymphoscintigraphy - 10/14/2023 8:06 am CLINICAL HISTORY: Right breast mass COMPARISON: 07/15/2023 mammogram. 07/28/2023 ultrasound. TECHNIQUE: 2 injections of 269 microcurie of [place] administered intradermally into the the late ral and medial aspects of the right breast. Subsequently a scintigram was obtained which demonstrated the radiotracer within these locations. IMPRESSION: Right breast lymphoscintigram, with no discrete sentinel lymph nodes identified.
[2023-10-14 14:07] VITALS: BP 127/55; O2SAT 94
== END 2023-10-14 14:38 | disposition home or self-care (01) ==
LOC: OR 05:56
PROVIDERS: ATTEND Surgery
PROC: 0HBT0ZZ Excision of Right Breast, Open Approach (ICD-10-PCS; principal; 2023-10-14 09:00)
PROC: 07B50ZX Excision of Right Axillary Lymphatic, Open Approach, Diagnostic (ICD-10-PCS; 2023-10-14 09:00)
DX: C50.411 Malignant neoplasm of upper-outer quadrant of right female breast (principal); Z17.1 Estrogen receptor negative status [ER-]
CPT/HCPCS: 19301; 38500; 85025; 80048; 36415; 85610; 88307; 85730; 88333; 71046; 76098; 19285; 78195; J2704; J1100; J2001; J2250; J3010 ×3; J1170 ×2; J2405; J7120; J0690; A9520; J2175